=== PATIENT | male | born 1950 | race Caucasian/White ===

== ENCOUNTER → 2016-06-06 | Outpatient (CLI) | payer BC ==
[~2016-06-06] MED LIST: ACET-1256 PO; ASPI81TA28 PO; ATOR80TA PO; ATV/1 PO; CILO100T15 PO; FEXO3TAB PO; IMD/2 PO; LORA-741 PO; MELA1TAB5 PO; METO50TA16 PO; NITR0.4S UT; OMEP20TA PO; PSEU30TA20 PO; PSEU60TA80 PO; QUIN10TA25 PO; SIME1CAP11 PO; THEO400T9 PO; TRAM-10 PO; TRIA75TA53 PO; TRMCR515 TOP; melatonin PO; simethicone PO
[2016-06-06 09:55] LABS: CHOLESTEROL/HDL RATIO 1.2
== END | disposition home or self-care (01) ==
LOC: C.LAB1850 08:14
PROVIDERS: ATTEND Internal Medicine Cardiovascular Disease
DX: E78.5 Hyperlipidemia, unspecified (principal)

== ENCOUNTER → 2016-07-15 | Outpatient (CLI) | payer BC ==
[~2016-07-15] MED LIST changes: -LORA-741 PO; -PSEU60TA80 PO; -melatonin PO; -simethicone PO
--- NOTE | 2016-07-15 12:14 | DIAGNOSTIC IMAGING REPORT ---
CHEST 2 VIEWS ROUTINE CLINICAL HISTORY: LUNG CA lung carcinoma COMPARISON STUDY: 12/18/2015. CT chest dated 04/12/2016 FINDINGS: Chronic and postoperative changes right apical region. This includes unchanging destructive changes of the ribs previously described. Nodular density in the central right apical region is unaltered as well. Left lung is considered clear. Chronic interstitial prominence medial right base. IMPRESSION: Stable evaluation of chest compared to the prior study. No new or interval process. Unchanging findings right pulmonary apex Electronically signed by: Lewis Garcia M.D. 07/15/2016 12:13 PM Dictated Date/Time: 07/15/2016 12:11 PM
== END | disposition home or self-care (01) ==
LOC: C.RAD 11:44
PROVIDERS: ATTEND Nurse Practitioner Family
DX: C34.11 Malignant neoplasm of upper lobe, right bronchus or lung (principal); Z87.891 Personal history of nicotine dependence

== ENCOUNTER → 2016-07-18 | Day surgery (SDC) | payer BC ==
[2016-07-04 10:02] VITALS: BMI 25.0
[~2016-07-18] VITALS: Ht 175.3 cm; Wt 77.3 kg
[~2016-07-18] MED LIST changes: +FENTANYL CITRATE INJ 50 MCG/1 ML 2 ML VIAL ONE; +LIDOCAINE HCL 2% 2 ML VIAL (20MG/ML) ONE; +PROPOFOL IV EMULSION 10 MG/ML 20 ML VIAL IV ONE
[2016-07-18 14:34] VITALS: Ht 175.3 cm; Wt 77.3 kg
--- NOTE | 2016-07-18 14:57 | Endo History and Physical ---
History & Physical Date of Service: Jul 18, 2016. Chief Complaint: screening Referring Physician: Dr. Girard History of Present Illness 65 yo CM who presents for screening colonoscopy. Past Medical History Reflux, Cancer, Hypertension, OR Past Surgical History Hx Cardiac Surgery: Yes (HEART CATH, STENT X1) Hx Internal Defibrillator: No Hx Pacemaker: No Hx Abdominal Surgery: Yes (LT /RT INGUINAL HERNIA REPAIR) Hx of Implantable Prosthesis: No Hx Post-Op Nausea and Vomiting: No Hx Cancer Surgery: Yes (LUNG BIOPSY REMOVAL, RT UPPER LOBECTOMY, UPPER 4 RIBS REMOVED) Hx Thoracic Surgery: No Hx Orthopedic: Yes (LOWER BACK SURGERY WITH ARTIFICIAL VERTEBRAE AND HARDWARE) Hx Urinary Tract Surgery: Yes (RENAL STENT) Family History None Social History Smoking Status: Former Smoker Hx Substance Use: No Hx Alcohol Use: Yes (1 BEER/DAY) Allergies Coded Allergies: NSAIDs (Verified Adverse Reaction, Unknown, REDUCES KIDNEY FUNCTION, ) Current Medications Reported Home Medications Medications Dose Route/Sig Max Daily Dose Days Date Category Simethicone 180 Mg Cap 1 Cap PO DAILY PRN 07/04/16 Reported Kp Melatonin (Melatonin) 3 Mg Tab 1 Tab PO HS PRN 07/04/16 Reported Mucinex Allergy (Fexofenadine HCl) 180 Mg Tab 1 Tab PO DAILY PRN 07/04/16 Reported Ativan (Lorazepam) 1 Mg Tab 0.5-1 Tab PO HS PRN 07/04/16 Reported Triamcinolone Acetonide (Triamcinolone Acet) 45 Appln/15 Gm Cr 1 Appln TOP BID PRN 03/05/16 Reported Maxzide 75MG/50MG (Triamterene/HCTZ) Tab 0.5-1 Tab PO QAM 03/05/16 Reported Uniphyl Controlled Rel (Theophylline) 400 Mg Tabcr 400 Mg PO Q2D PRN 03/05/16 Reported Ultram (Tramadol HCl) 50 Mg Tab 1 Tab PO BID PRN 12/27/14 Reported Accupril (Quinapril HCl) 10 Mg Tab 0.5 Tab PO QAM 09/06/14 Reported Tylenol (Acetaminophen) 500 Mg Tab 1,000 Mg PO BID PRN 08/17/14 Reported Lopressor (Metoprolol Tartrate) 50 Mg Tab 50 Mg PO BID 08/17/14 Reported Lipitor (Atorvastatin Calcium) 80 Mg Tab 80 Mg PO HS 08/17/14 Reported Sudafed (Pseudoephedrine HCl) 30 Mg Tab 30 Mg PO Q4H PRN 08/26/13 Reported Imodium (Loperamide HCl) 2 Mg Cap 2 Mg PO DIRECTED PRN 08/26/13 Reported Aspirin Ec (Aspirin) 81 Mg Tab 81 Mg PO HS 04/21/13 Reported Omeprazole 20 Mg Tab 20 Mg PO QAM 11/17/12 Reported Nitrostat (Nitroglycerin) 0.4 Mg Sub 0.4 Mg UT UD PRN 11/17/12 Reported Pletal (Cilostazol) 100 Mg Tab 100 Mg PO BID 11/17/12 Reported Vital Signs Weight (Kilograms): 77.27 Height (Feet): 5 Height (Inches): 9 Date Time Temp Pulse Resp B/P Pulse Ox O2 Delivery O2 Flow Rate FiO2 07/18/16 14:43 36.9 63 20 161/85 99 Room Air Physical Exam General Appearance: WD/WN, no apparent distress Respiratory/Chest: Auscultation: breath sounds normal Cardiovascular: Heart Auscultation: RRR Abdomen: Bowel Sounds: normal Inspection & Palpation: soft, non-distended, no tenderness, guarding & rebound Assessment and Plan Assessment: 65 yo CM who presents for screening colonoscopy. Plan: Proceed with colonoscopy.
--- NOTE | 2016-07-18 15:48 | Anesthesiology Progress Note ---
Anesthesia Post Op Note Date & Time Jul 18, 2016 at 15:48 Vital Signs Pain Intensity: 0 Vital Signs Past 12 Hours Date Time Temp Pulse Resp B/P Pulse Ox O2 Delivery O2 Flow Rate FiO2 07/18/16 15:35 60 18 123/77 98 Room Air 07/18/16 15:20 60 16 129/66 99 Room Air 07/18/16 14:43 36.9 63 20 161/85 99 Room Air Notes Mental Status: alert / awake / arousable, participated in evaluation Pt Amnestic to Procedure: Yes Nausea / Vomiting: adequately controlled Pain: adequately controlled Airway Patency, RR, SpO2: stable & adequate BP & HR: stable & adequate Hydration State: stable & adequate Anesthetic Complications: no major complications apparent
--- NOTE | 2016-07-18 15:48 | GI REPORT ---
Procedure Date: 07/18/2016 3:02 PM Procedure: Colonoscopy Indications: Screening for colorectal malignant neoplasm Medicines: Monitored Anesthesia Care Complications: No immediate complications. Estimated Blood Loss: Estimated blood loss: none. Procedure: Pre-Anesthesia Assessment: - Prior to the procedure, a History and Physical was performed, and patient medications and allergies were reviewed. The patient's tolerance of previous anesthesia was also reviewed. The risks and benefits of the procedure and the sedation options and risks were discussed with the patient. All questions were answered, and informed consent was obtained. Prior Anticoagulants: The patient has taken aspirin, last dose was 1 day prior to procedure. ASA Grade Assessment: III - A patient with severe systemic disease. After reviewing the risks and benefits, the patient was deemed in satisfactory condition to undergo the procedure. After I obtained informed consent, the scope was passed under direct vision. Throughout the procedure, the patient's blood pressure, pulse, and oxygen saturations were monitored continuously. The scope was introduced through the anus and advanced to the terminal ileum. The colonoscopy was performed without difficulty. The patient tolerated the procedure well. The quality of the bowel preparation was good. The terminal ileum, ileocecal valve, appendiceal orifice, and rectum were photographed. Findings: A 8 mm polyp was found in the ascending colon. The polyp was sessile. The polyp was removed with a hot snare. Resection and retrieval were complete. Multiple small-mouthed diverticula were found in the sigmoid colon. Non-bleeding internal hemorrhoids were found during retroflexion. The hemorrhoids were small. Impression: - One 8 mm polyp in the ascending colon, removed with a hot snare. Resected and retrieved. - Diverticulosis in the sigmoid colon. - Non-bleeding internal hemorrhoids. Recommendation: - Resume previous diet. - Continue present medications. - Repeat colonoscopy for surveillance based on pathology results. - Return to primary care physician as previously scheduled. Shoaib Mendosa DO 07/18/2016 3:46:51 PM This report has been signed electronically. Note Initiated On: 07/18/2016 3:02 PM I attest to the content of the Intraoperative Record and orders documented therein, exceptions below
[2016-07-18 15:50] VITALS: BP 121/76; PULSE 58; O2SAT 98
--- NOTE | 2016-07-18 15:51 | Discharge Instructions ---
Endoscopy Patient Instructions Date / Procedure(s) Performed Jul 18, 2016. Colonoscopy Allergy Information Coded Allergies: NSAIDs (Verified Adverse Reaction, Unknown, REDUCES KIDNEY FUNCTION, ) Discharge Date / Findings Jul 18, 2016. Colon polyp Diverticulosis Internal hemorrhoids Medication Instructions Stopped Medication(s): pletal stopped 6 days ago. Restart Stopped Medication(s): OK to resume all medications today with exception of Pletal which should be restarted on 07/19/2016 Reported Home Medications Medications Dose Route/Sig Max Daily Dose Days Date Category Simethicone 180 Mg Cap 1 Cap PO DAILY PRN 07/04/16 Reported Kp Melatonin (Melatonin) 3 Mg Tab 1 Tab PO HS PRN 07/04/16 Reported Mucinex Allergy (Fexofenadine HCl) 180 Mg Tab 1 Tab PO DAILY PRN 07/04/16 Reported Ativan (Lorazepam) 1 Mg Tab 0.5-1 Tab PO HS PRN 07/04/16 Reported Triamcinolone Acetonide (Triamcinolone Acet) 45 Appln/15 Gm Cr 1 Appln TOP BID PRN 03/05/16 Reported Maxzide 75MG/50MG (Triamterene/HCTZ) Tab 0.5-1 Tab PO QAM 03/05/16 Reported Uniphyl Controlled Rel (Theophylline) 400 Mg Tabcr 400 Mg PO Q2D PRN 03/05/16 Reported Ultram (Tramadol HCl) 50 Mg Tab 1 Tab PO BID PRN 12/27/14 Reported Accupril (Quinapril HCl) 10 Mg Tab 0.5 Tab PO QAM 09/06/14 Reported Tylenol (Acetaminophen) 500 Mg Tab 1,000 Mg PO BID PRN 08/17/14 Reported Lopressor (Metoprolol Tartrate) 50 Mg Tab 50 Mg PO BID 08/17/14 Reported Lipitor (Atorvastatin Calcium) 80 Mg Tab 80 Mg PO HS 08/17/14 Reported Sudafed (Pseudoephedrine HCl) 30 Mg Tab 30 Mg PO Q4H PRN 08/26/13 Reported Imodium (Loperamide HCl) 2 Mg Cap 2 Mg PO DIRECTED PRN 08/26/13 Reported Aspirin Ec (Aspirin) 81 Mg Tab 81 Mg PO HS 04/21/13 Reported Omeprazole 20 Mg Tab 20 Mg PO QAM 11/17/12 Reported Nitrostat (Nitroglycerin) 0.4 Mg Sub 0.4 Mg UT UD PRN 11/17/12 Reported Pletal (Cilostazol) 100 Mg Tab 100 Mg PO BID 11/17/12 Reported Provider Instructions Activity Restrictions - No exercising or heavy lifting for 24 hours. - Do not drink alcohol the day of the procedure. - Do not drive a car or operate machinery until the day after the procedure. - Do not make any important decisions or sign important papers in 24 hours after the procedure. Following Day: - Return to full activity which may include returning to work/school. Diet Start your diet with liquids and light foods (jello, soup, juice, toast). Then eat your usual diet if not nauseated. Treatment For Common After Affects For mild abdominal pain, bloating, or excessive gas: - Rest - Eat lightly - Lie on right side Follow-Up Information Follow-up with Dr. Girard as scheduled Anesthesia Information What You Should Know You have had a procedure that required some medicine to reduce anxiety and discomfort. This treatment is called moderate sedation. After receiving the treatment, you may be sleepy, but you will be able to breathe on your own. The effects of the treatment may last for several hours. Follow these instructions along with Activity/Diet recommendations noted above: * Do NOT do anything where dizziness or clumsiness would be dangerous. * Rest quietly at home today, then you can be up and about tomorrow. * Have a responsible person stay with you the rest of today. * You may have had an I.V. today. If so, you may take the dressing off later today. Recommendations Call your doctor if: * Trouble breathing * Continuous vomiting for more than 24 hours * Temperature above 101 degrees * Severe abdominal pain or bloating * Pain not relieved by pain medicine ordered * There is increased drainage or redness from any incision * A large amount of rectal bleeding greater than 2-3 tablespoons. (If you had a polyp/s removed or have hemorrhoids, a small amount of blood - from the rectum is to be expected.) * You have any unanswered questions or concerns. IN THE EVENT OF A SERIOUS EMERGENCY, GO TO THE NEAREST EMERGENCY ROOM Your discharge instructions were prepared by provider Shoaib Mendosa. Patient Instructions Signature Page Adalberto Dunbar Patient (or Guardian) Signature/Date: I have read and understand the instructions given to me by my caregivers. Caregiver/RN/Doctor Signature/Date: The above-named patient and/or guardian has received patient instructions on this date. + Original Patient Signature Page (only) stays with chart. Please make copy for patient.
== END | disposition home or self-care (01) ==
LOC: C.GI 13:44
PROVIDERS: ATTEND Internal Medicine
DX: Z12.11 Encounter for screening for malignant neoplasm of colon (principal); D12.2 Benign neoplasm of ascending colon; K57.30 Diverticulosis of large intestine without perforation or abscess without bleeding; K64.8 Other hemorrhoids; Z95.5 Presence of coronary angioplasty implant and graft; Z87.891 Personal history of nicotine dependence; K21.9 Gastro-esophageal reflux disease without esophagitis; I10 Essential (primary) hypertension; I25.2 Old myocardial infarction; Z98.890 Other specified postprocedural states; Z79.82 Long term (current) use of aspirin; Z88.5 Allergy status to narcotic agent

== ENCOUNTER → 2016-08-13 | Outpatient (CLI) | payer BC ==
[~2016-08-13] MED LIST changes: -FENTANYL CITRATE INJ 50 MCG/1 ML 2 ML VIAL ONE; -LIDOCAINE HCL 2% 2 ML VIAL (20MG/ML) ONE; -PROPOFOL IV EMULSION 10 MG/ML 20 ML VIAL IV ONE; -THEO400T9 PO; +UNPSR400 PO
[2016-08-13 12:21] LABS: HEMATOCRIT 40.8 % (42-52); MEAN CELL VOLUME 98.6 fL (80-100); MEAN CORPUSCULAR HEMOGLOBIN 33.6 pg (25-34); MEAN CORPUSCULAR HGB CONC 34.1 g/dl (32-36); MEAN PLATELET VOLUME 9.8 fL (7.4-10.4); PLATELET COUNT 183 K/uL (130-400); RED BLOOD COUNT 4.14 M/uL (4.7-6.1); WHITE BLOOD COUNT 5.07 K/uL (4.8-10.8)
[2016-08-13 12:25] LABS: URINE APPEARANCE CLEAR (CLEAR); URINE BILIRUBIN NEG (NEG); URINE COLOR YELLOW; URINE NITRITE NEG (NEG); URINE PH 5.5 (4.5-7.5); URINE SPECIFIC GRAVITY 1.015 (1.000-1.030); UROBILINOGEN NEG (NEG)
[2016-08-13 12:30] LABS: PARTIAL THROMBOPLASTIN RATIO 1.1
[2016-08-13 12:36] LABS: MANUAL MICROSCOPIC REQUIRED? NO; REVIEW REQ? NO
[2016-08-13 12:41] LABS: BLOOD UREA NITROGEN 29 mg/dl (7-18); BUN/CREATININE RATIO 19.2 (10-20); CALCIUM 8.9 mg/dl (8.5-10.1); CARBON DIOXIDE 30 mmol/L (21-32); CHLORIDE 107 mmol/L (98-107); GLUCOSE 121 mg/dl (70-99); POTASSIUM 3.9 mmol/L (3.5-5.1); SODIUM 141 mmol/L (136-145)
== END | disposition home or self-care (01) ==
LOC: C.LAB1850 10:03
PROVIDERS: ATTEND Internal Medicine Nephrology
DX: N18.3 Chronic kidney disease, stage 3 (moderate) (principal)

== ENCOUNTER → 2016-12-19 | Outpatient (CLI) | payer BC ==
[~2016-12-19] MED LIST changes: +THEO400T9 PO; -UNPSR400 PO
[2016-12-19 10:12] LABS: ALT/SGPT 33 U/L (12-78); AST/SGOT 19 U/L (15-37); BLOOD UREA NITROGEN 24 mg/dl (7-18); BUN/CREATININE RATIO 17.1 (10-20); CALCIUM 9.1 mg/dl (8.5-10.1); CARBON DIOXIDE 28 mmol/L (21-32); CHLORIDE 106 mmol/L (98-107); GLUCOSE 109 mg/dl (70-99); POTASSIUM 3.9 mmol/L (3.5-5.1); SODIUM 139 mmol/L (136-145)
[2016-12-19 10:23] LABS: CHOLESTEROL 116 mg/dl (0-200); CHOLESTEROL/HDL RATIO 1.4; HDL CHOLESTEROL 81 mg/dl; LDL CHOLESTEROL CALCULATED 23 mg/dl; PHOSPHORUS 2.7 mg/dl (2.5-4.9); TRIGLYCERIDES 60 mg/dl (0-150); VERY LOW DENSITY LIPOPROT CALC 12 mg/dl
== END | disposition home or self-care (01) ==
LOC: C.LAB1850 08:57
PROVIDERS: ATTEND Internal Medicine Cardiovascular Disease
DX: N18.3 Chronic kidney disease, stage 3 (moderate) (principal); I25.10 Atherosclerotic heart disease of native coronary artery without angina pectoris; E78.5 Hyperlipidemia, unspecified

== ENCOUNTER → 2017-02-17 | Outpatient (CLI) | payer BC ==
[2017-02-17 16:13] LABS: URINE APPEARANCE CLEAR (CLEAR); URINE BILIRUBIN NEG (NEG); URINE COLOR YELLOW; URINE NITRITE NEG (NEG); URINE SPECIFIC GRAVITY 1.021 (1.000-1.030); UROBILINOGEN NEG (NEG)
[2017-02-17 16:16] LABS: MANUAL MICROSCOPIC REQUIRED? NO; REVIEW REQ? NO
[2017-02-17 16:47] LABS: BLOOD UREA NITROGEN 28 mg/dl (7-18); CALCIUM 8.9 mg/dl (8.5-10.1); CARBON DIOXIDE 24 mmol/L (21-32); CHLORIDE 106 mmol/L (98-107); GLUCOSE 85 mg/dl (70-99); POTASSIUM 3.7 mmol/L (3.5-5.1); SODIUM 140 mmol/L (136-145)
== END ==
LOC: C.LAB1850 14:50
PROVIDERS: ATTEND Internal Medicine Nephrology
DX: N18.3 Chronic kidney disease, stage 3 (moderate) (principal)

== ENCOUNTER → 2017-03-05 | Outpatient (CLI) | payer BC ==
[2015-02-28 13:04] VITALS: BP 114/69; PULSE 68
[~2017-03-05] MED LIST changes: -THEO400T9 PO; +UNPSR400 PO
[2017-03-05 13:15] VITALS: BP 103/65; PULSE 74; TEMP 37; O2SAT 96
--- NOTE | 2017-03-05 16:49 | Radiation Oncology Follow-Up ---
Radiation Oncology Follow-Up Date of Visit Mar 05, 2017. Reason For Visit Annual follow-up Radiation Completion Date 05/18/13 Diagnosis (1) Pancoast tumor Status: Resolved Onset Date: 03/23/2013 Histology Subtype: squamous cell carcinoma Stage: IV Permanent Comment: Onset of right arm numbness and right arm pain Finding of a right upper lobe mass with evidence of right rib involvement consistent with a Pancoast tumor Status post fine-needle aspiration of the right lung apex revealing squamous cell carcinoma 03/23/2013 Status post completion of combined radiation and chemotherapy radiation completed 05/18/2013 received 6000 cGy status post mediastinoscopy, right posterior lateral thoracotomy, right intracostal flap mobilization with coverage of the bronchial stump and mediastinal lymphadenectomy 07/08/2013 Stage [id number] Last Edited By: Ailyn Patel on Feb 28, 2015 17:02 Interim History He's been doing well over this past year. He denies any problems with shortness of breath. He does have tightness in his shoulder. He is pleased that he has been able to increase his range of motion. He has occasional pain in the shoulder and on rare occasions has to take a tramadol. For the most part the discomfort can be avoided and improved with stretching exercises. He did have some increased discomfort and had physical therapy and the pain improved. He is now followed on an annual basis at [facility] by Dr. Angulo. His most recent CT of the chest was 11/19/2016. Postoperative changes were noted there was no evidence of disease recurrence. Allergies Coded Allergies: NSAIDs (Verified Adverse Reaction, Unknown, REDUCES KIDNEY FUNCTION, ) Home Medications Scheduled Aspirin (Aspirin Ec), 81 MG PO HS Atorvastatin Calcium (Lipitor), 80 MG PO HS Cilostazol (Pletal), 100 MG PO BID Metoprolol Tartrate (Lopressor) (Lopressor), 50 MG PO BID Omeprazole (Omeprazole), 20 MG PO QAM Quinapril Hcl (Accupril), 0.5 TAB PO QAM Triamterene/Hctz (Maxzide 75MG/50MG), 0.5-1 TAB PO QAM Scheduled PRN Acetaminophen (Tylenol), 1,000 MG PO BID PRN for Pain Fexofenadine HCl (Mucinex Allergy), 1 TAB PO DAILY PRN for Constipation Loperamide Hcl (Imodium), 2 MG PO DIRECTED PRN for Diarrhea Lorazepam (Ativan), 0.5-1 TAB PO HS PRN for Sleep Melatonin (Kp Melatonin), 1 TAB PO HS PRN for Sleep Nitroglycerin (Nitrostat), 0.4 MG UT UD PRN for Chest Pain Pseudoephedrine (Sudafed), 30 MG PO Q4H PRN for Nasal Congestion Simethicone (Simethicone), 1 CAP PO DAILY PRN for GI Upset Theophylline Cont Rel (Uniphyl Controlled Rel), 400 MG PO Q2D PRN for Shortness of Breath Tramadol (Ultram), 1 TAB PO BID PRN for Pain Triamcinolone Acet (Triamcinolone Acetonide), 1 APPLN TOP BID PRN for Affected Skin Folds Review of Systems Gastrointestinal: Symptoms: WNL GI Comments: Goes between diarrhea and constipation (normal for patient) Oral: Symptoms: No Problems Respiratory: Symptoms: WNL Urinary: Symptoms: WNL Skin: Symptoms: No Problems Physical Exam Vital Signs Date Time Temp Pulse Resp B/P (MAP) Pulse Ox O2 Delivery O2 Flow Rate FiO2 03/05/17 13:15 37.0 74 16 103/65 96 Pain: Pain Duration: chest - constant, shoulder - comes and goes Pain Location: Shoulder and through chest - surg area Patient Pain Scale: 0 - 10 Initial Pain Intensity: 3.0 Pain Description: Dull, Aching Additional Comments: chest - dull, numbing ache, shoulder - sharp stabbing Fatigue: None General Appearance: no apparent distress Eyes: normal inspection, EOMI ENT: normal ENT inspection, hearing grossly normal Neck: no adenopathy, + pertinent finding (fibrous changes of the right supraclavicular area) Respiratory/Chest: lungs clear (decreased breath sounds at the right apex), no respiratory distress, no accessory muscle use Cardiovascular: regular rate, rhythm, no gallop, no murmur Extremities: no pedal edema Neurologic/Psychiatric: no motor/sensory deficits, alert, normal mood/affect Skin: warm/dry Laboratory Studies Test 12/19/16 09:02 02/17/17 14:52 Sodium Level 139 mmol/L (136-145) 140 mmol/L (136-145) Potassium Level 3.9 mmol/L (3.5-5.1) 3.7 mmol/L (3.5-5.1) Chloride Level 106 mmol/L (98-107) 106 mmol/L (98-107) Carbon Dioxide Level 28 mmol/L (21-32) 24 mmol/L (21-32) Anion Gap 5.0 mmol/L (3-11) 10.0 mmol/L (3-11) Blood Urea Nitrogen 24 mg/dl (7-18) 28 mg/dl (7-18) Creatinine 1.40 mg/dl (0.60-1.40) 1.50 mg/dl (0.60-1.40) Estimated GFR () 60.3 55.0 Estimated GFR (Non- 52.0 47.5 BUN/Creatinine Ratio 17.1 (10-20) 19.0 (10-20) Random Glucose 109 mg/dl (70-99) 85 mg/dl (70-99) Calcium Level 9.1 mg/dl (8.5-10.1) 8.9 mg/dl (8.5-10.1) Phosphorus Level 2.7 mg/dl (2.5-4.9) 3.0 mg/dl (2.5-4.9) Aspartate Amino Transferase (AST) 19 U/L (15-37) Alanine Aminotransferase (ALT) 33 U/L (12-78) Albumin 3.7 gm/dl (3.4-5.0) 3.9 gm/dl (3.4-5.0) Triglycerides Level 60 mg/dl (0-150) Cholesterol Level 116 mg/dl (0-200) HDL Cholesterol 81 mg/dl LDL Cholesterol, Calculated 23 mg/dl VLDL Cholesterol, Calculated 12 mg/dl Cholesterol/HDL Ratio 1.4 Thyroid Stimulating Hormone (TSH) 2.260 uIu/ml (0.300-4.500) Urine Color YELLOW Urine Appearance CLEAR (CLEAR) Urine pH 5.0 (4.5-7.5) Urine Specific [place] 1.021 (1.000-1.030) Urine Protein NEG (NEG) Urine Glucose (UA) NEG (NEG) Urine Ketones NEG (NEG) Urine Occult Blood NEG (NEG) Urine Nitrite NEG (NEG) Urine Bilirubin NEG (NEG) Urine Urobilinogen NEG (NEG) Urine Leukocyte Esterase NEG (NEG) Parathyroid Hormone (Intact) 148.5 pg/mL (11.1-79.5) Assessment & Plan Plan: Continue follow-up at [facility] with Dr. Angulo. He'll be having recheck CAT scan in November. Continue follow-up with medical oncology he'll be seen in May. He'll continue with the stretching exercises which help with the shoulder discomfort. We asked him to return to our office in 1 year. He may call if he has any questions or concerns in the interim. Total Time In Follow-Up I spent 20 minutes speaking to the patient and performing examination. I spent 15 minutes reviewing information and completing this note. Copy To Rad Medina D.O.; Jada Girard, DO; Kena Angulo M.D. Problem Qualifiers (1) Pancoast tumor: Laterality: right Qualified Codes: C34.11 - Malignant neoplasm of upper lobe , right bronchus or lung
== END | disposition home or self-care (01) ==
LOC: C.ONC 13:08
PROVIDERS: ATTEND Physician Assistant Medical
DX: Z08 Encounter for follow-up examination after completed treatment for malignant neoplasm (principal); Z92.3 Personal history of irradiation; Z85.89 Personal history of malignant neoplasm of other organs and systems

== ENCOUNTER → 2017-03-18 | Outpatient (CLI) | payer BC ==
[~2017-03-18] MED LIST changes: +GADAVIST IV PRN
--- NOTE | 2017-03-18 10:56 | DIAGNOSTIC IMAGING REPORT ---
MRI OF THE BRAIN WITHOUT AND WITH IV CONTRAST CLINICAL HISTORY: POOR BALANCE,PANCOAST TUMOR LUNG CARCINOMA COMPARISON STUDY: 03/11/2016 TECHNIQUE: MRI of the brain was performed from the vertex to the skull base utilizing various T1 and T2 weighted sequences. Following the IV administration of 7.6 mL of Gadavist contrast, additional enhanced images were obtained. FINDINGS: Sagittal T1, axial diffusion, proton density and T2 weighted axial, coronal FLAIR, and pre and post axial T1-weighted images were acquired. These were supplemented with post gadolinium coronal T1 weighted images. No intra or extra-axial mass lesions are visualized. Axial diffusion-weighted images reveal no evidence of acute or subacute infarction. There is no evidence of ventricular dilatation. Proton density T2-weighted and FLAIR images reveal a few scattered foci of increased T2 signal within the white matter, likely on a small vessel basis. There are no abnormal flow voids. There is no evidence of pathologic enhancement. IMPRESSION: No acute intracranial findings. No evidence of acute or subacute infarction. No evidence of intracranial metastasis. Electronically signed by: Gio Morton M.D. 03/18/2017 10:54 AM Dictated Date/Time: 03/18/2017 10:51 AM
== END | disposition home or self-care (01) ==
LOC: C.MRI 09:14
PROVIDERS: ATTEND Physician Assistant Medical
DX: C34.10 Malignant neoplasm of upper lobe, unspecified bronchus or lung (principal); R26.9 Unspecified abnormalities of gait and mobility

== ENCOUNTER → 2017-03-26 | Outpatient (CLI) | payer BC ==
[~2017-03-26] MED LIST changes: -GADAVIST IV PRN
--- NOTE | 2017-03-26 09:24 | DIAGNOSTIC IMAGING REPORT ---
ULTRASOUND L VENOUS DOPP LOWER EXT UNILAT CLINICAL HISTORY: LEFT LEG NUMBNESS COMPARISON STUDY: No previous studies for comparison. FINDINGS: Real-time and color flow Doppler imaging were performed. Flow was seen within the femoral, popliteal and calf veins with no intraluminal thrombus demonstrated. The saphenous vein is patent. IMPRESSION: No evidence of left lower extremity DVT. Electronically signed by: Gio Morton M.D. 03/26/2017 9:22 AM Dictated Date/Time: 03/26/2017 9:22 AM
--- NOTE | 2017-03-26 09:26 | DIAGNOSTIC IMAGING REPORT ---
L ART DOP DUPLEX LWR EXT UNI CLINICAL HISTORY: LEFT LEG NUMBNESS pain. Neuropathy. TECHNIQUE: Arterial Doppler COMPARISON STUDY: None FINDINGS: bi or triphasic waveforms throughout. Dorsalis pedis ankle-brachial brachial index is 1.06. Posterior tibial artery is 0.91. IMPRESSION: Mild plaque formation throughout the left leg. No significant stenotic process. The above report was generated using voice recognition software. It may contain grammatical, syntax or spelling errors. Electronically signed by: Lewis Garcia M.D. 03/26/2017 9:24 AM Dictated Date/Time: 03/26/2017 9:22 AM
== END | disposition home or self-care (01) ==
LOC: C.ULTR 08:09
PROVIDERS: ATTEND Nurse Practitioner Family
DX: R20.0 Anesthesia of skin (principal)

== ENCOUNTER → 2017-04-11 | Outpatient (CLI) | payer BC ==
[~2017-04-11] MED LIST changes: -QUIN10TA25 PO; +QUIN1TAB61 PO
== END | disposition home or self-care (01) ==
LOC: C.LAB1850 13:51
PROVIDERS: ATTEND Nurse Practitioner Family
DX: E83.42 Hypomagnesemia (principal)

== ENCOUNTER → 2017-07-08 | Outpatient (CLI) | payer BC | END | disposition home or self-care (01) | LOC: C.LAB1850 08:52 | PROVIDERS: ATTEND Internal Medicine Cardiovascular Disease | DX: E83.42 Hypomagnesemia (principal); I25.10 Atherosclerotic heart disease of native coronary artery without angina pectoris; E78.5 Hyperlipidemia, unspecified ==

== ENCOUNTER → 2017-08-18 | Outpatient (CLI) | payer BC ==
[2017-08-18 13:52] LABS: ALBUMIN 3.7 gm/dl (3.4-5.0); BLOOD UREA NITROGEN 28 mg/dl (7-18); CALCIUM 8.6 mg/dl (8.5-10.1); CARBON DIOXIDE 24 mmol/L (21-32); CREATININE 1.39 mg/dl (0.60-1.40); GLUCOSE 122 mg/dl (70-99); POTASSIUM 3.9 mmol/L (3.5-5.1); SODIUM 138 mmol/L (136-145)
[2017-08-18 13:53] LABS: PHOSPHORUS 2.5 mg/dl (2.5-4.9)
== END | disposition home or self-care (01) ==
LOC: C.LAB1850 11:33
PROVIDERS: ATTEND Internal Medicine Nephrology
DX: N18.3 Chronic kidney disease, stage 3 (moderate) (principal); E55.9 Vitamin D deficiency, unspecified

== ENCOUNTER → 2017-12-15 | Outpatient (CLI) | payer BC ==
--- NOTE | 2017-12-15 12:14 | DIAGNOSTIC IMAGING REPORT ---
RIGHT FOOT 3 VIEWS CLINICAL HISTORY: Right foot pain. FINDINGS: 3 views of the right foot are compared to study dated 01/08/2012. The skeletal structures are well mineralized for age. No fracture is seen. Mild osteoarthritic change is seen at the first metatarsophalangeal joint. The joint spaces of the foot are otherwise maintained. A tiny medial marginal erosion is suggested in the head of the first metatarsal. There is mild soft tissue edema and subtle hazy soft tissue calcifications identified around the first metatarsophalangeal joint. IMPRESSION: 1. There is no radiographic evidence of fracture. 2. Changes at the first metatarsophalangeal joint as above. The appearance suggests gout. Clinical correlation will be required. Electronically signed by: Stephan Coles M.D. 12/15/2017 12:12 PM Dictated Date/Time: 12/15/2017 12:10 PM
[2017-12-15 13:16] LABS: BASO % 0.3 %; BASO ABS # 0.03 K/uL (0-0.2); EOS % 0.6 %; EOS ABS # 0.06 K/uL (0-0.5); HEMATOCRIT 39.3 % (42-52); HEMOGLOBIN 13.5 g/dL (14.0-18.0); IG# 0.05 K/uL (0.00-0.02); LYMPH ABS # 0.49 K/uL (1.2-3.4); MEAN CELL VOLUME 100.3 fL (80-100); MEAN CORPUSCULAR HEMOGLOBIN 34.4 pg (25-34); MEAN CORPUSCULAR HGB CONC 34.4 g/dl (32-36); MONO % 10.7 %; MONO ABS # 1.05 K/uL (0.11-0.59); NEUT % 82.9 %; NEUT ABS # 8.09 K/uL (1.4-6.5); PLATELET COUNT 196 K/uL (130-400); RED CELL DISTRIBUTION WIDTH CV 12.5 % (11.5-14.5); RED CELL DISTRIBUTION WIDTH SD 45.5 fL (36.4-46.3); WHITE BLOOD COUNT 9.77 K/uL (4.8-10.8)
[2017-12-15 13:42] LABS: URIC ACID 7.5 mg/dl (2.6-7.2)
[2017-12-16 13:53] LABS: ANA SCREEN TC 249X NEGATIVE (NEGATIVE)
== END | disposition home or self-care (01) ==
LOC: C.RAD1850 11:17
PROVIDERS: ATTEND Family Medicine
DX: M79.673 Pain in unspecified foot (principal); I25.10 Atherosclerotic heart disease of native coronary artery without angina pectoris

== ENCOUNTER 2024-03-30 11:46 | Inpatient (IN) ==
[2024-03-30] MEDS ORDERED: CEFEPIME 2,000 MG in SYRINGE 7.5 ML IV STA (12:15)
--- NOTE | 2024-03-30 12:23 | Emergency Department Note ---
Impression & Plan Weakness, Fall, Chest wall contusion, Abdominal wall contusion, Hypomagnesemia, Cellulitis ED Provider Note NAME: KAM RODRÍGUEZ AGE: 73 SEX: M : 1950 ARRIVES VIA: Ambulance INFORMANT: [Patient][ems] ED PROVIDER(S): [Stephan Friedman MD] CHIEF COMPLAINT: Shortness of breath, falling HISTORY OF PRESENT ILLNESS: The patient is a 73-year-old male who is currently living alone. His a month ago. In the last few days, the patient has fallen multiple times. He has contusions to his right abdomen and right chest. He has extremity contusions. The patient states that he feels weak and dizzy and this causes the falling. No loss of consciousness. No chest pain. No fever. He has noticed swelling though of both lower extremities, more so the left. The patient states he is short of breath, he has not noticed cough or cold symptoms. PMHx/PSHx/Social Hx: See Below PHYSICAL EXAM: GENERAL: Patient is in no acute distress. HEENT: No acute trauma, normocephalic atraumatic, mucous membranes moist, no nasal congestion. NECK: No stridor, no adenopathy, nontender cervical spine, trachea is midline. LUNGS: Clear to auscultation bilaterally, no wheeze, no rhonchi, breath sounds equal. Chest: Patient has a contusion to the right lower chest wall, he does not seem tender here. No crepitus. HEART: Without murmurs gallops or rubs, regular rate and rhythm. ABDOMEN: Soft, nontender, no peritonitis. There is a contusion to the right upper quadrant which does not seem tender. EXTREMITIES: No cyanosis, full range of motion of all the joints without pain or difficulty. Multiple contusions of his upper extremities of different ages. He does have bilateral pedal edema with foot erythema, especially on the left. There is increased warmth present to both lower extremities. NEUROLOGIC: Oriented x 3, no acute motor or sensory deficits, no focal weakness. SKIN: No jaundice, no diaphoresis. Back: Nontender thoracic or lumbar spine. DIFFERENTIAL DIAGNOSIS: Anemia, sepsis or bacteremia, cellulitis, chest wall injury, intra-abdominal injury, electrolyte imbalance, UTI, cellulitis, among others. EMERGENCY DEPARTMENT PROCEDURES: MEDICAL DECISION MAKING: There is no leukocytosis. The patient is anemic with a hemoglobin of 12.4. Platelet count was low at 116. No coagulopathy. Potassium was low, magnesium was quite low. There was no renal failure. There were some subtle liver enzyme elevations. Patient appeared to be in a euthyroid state. ECG showed a normal sinus rhythm, no ischemia. Cardiac enzyme testing x 1 was not consistent with acute cardiac injury. Urinalysis showed some dehydration, no infection. Respiratory bio fire was negative. Lactic acid level was not elevated making severe sepsis less likely. Chest x-ray showed some chronic change to the right lung, no pneumonia. Brain CT showed no acute bleed or mass effect. C-spine CT showed no acute fracture. Chest and abdominal CTs did not show any acute traumatic process. On exam, the patient had contusions to his extremities and his right lower chest and right upper abdomen. He appeared to have a bilateral lower extremity cellulitis worse on the left. The patient received IV saline, 500 cc. He was given oral potassium and IV magnesium. He received IV cefepime as antibiotic coverage. The patient is falling. He is quite contused from his falls, luckily, no major thoracic or abdominal injury found by workup. The patient is in need of a hospital stay. He is weak, falling, he has cellulitis, he has a very low magnesium, he is not safe for discharge home. I did speak with the patient and family, the on-call hospitalist was consulted. Prior/Outside records/notes reviewed: Today's EMS notes describing his presentation and transport to this hospital. ECG per my interpretation: Indication was falling and weakness. The ECG shows a normal sinus rhythm with a rate of 79. There is some nonspecific ST change. There is a right bundle branch block. There is no acute ST ovation, no PVCs. The QTc is 497. Continuous Cardiac Monitoring per my interpretation: An order was placed for continuous cardiac monitoring. The monitor shows a rate of 81 with normal sinus rhythm. Imaging/x-ray results per my interpretation: Chest x-ray shows some chronic change to the right lung, the left lung was clear. No pneumonia. No pneumothorax. Chronic Medical/Social conditions affecting care: Advanced age. Care/Management discussed with: Case management, the on-call hospitalist. Level of care consideration(s): After review of the information above and other included data: --I believe the patient requires escalation of care to admission Critical Care Note: I have personally spent 51 minutes of critical care time in the direct management of this patient. This includes bedside care, interpretation of diagnostic studies, and testing, discussion with consultants, patient, and family members, and other required patient management activities. This 51 minutes is in excess of all separately billable procedures. DISPOSITION: Admission Past Med/Surg History Problem List Cellulitis (Acute) Hypomagnesemia (Acute) Abdominal wall contusion (Acute) Chest wall contusion (Acute) Fall (Acute) Weakness (Acute) Swelling of left lower extremity Stasis dermatitis Weakness Adjacent segment disease of lumbar spine with history of fusion procedure Foraminal stenosis of lumbosacral region History of fusion of lumbar spine Foot drop, right Spondylolisthesis Degenerative lumbar spinal stenosis Degenerative disc disease Lesion of left sleetmute kidney Microscopic hematuria Abdominal aortic ectasia (Chronic) 2.9 cm 12/18/22 Hypertension (Chronic) Anxiety (Chronic) History of colon polyps Rupture of right distal biceps tendon Tubular adenoma of colon (Chronic) Peripheral vascular disease (Chronic) History of gout (Chronic) Former smoker (Chronic) Diverticulosis (Chronic) Stage 3b chronic kidney disease (Chronic) follows with Dr. Diaz Hypercholesterolemia (Chronic) Dropfoot (Chronic) left Impaired fasting blood sugar (Chronic) Coronary artery disease (Chronic) LAD stent 2002 > follows with Dr. 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 Status post completion of combined radiation and chemotherapy radiation completed 05/18/2013 received 6000 cGy status post mediastinoscopy, right posterior lateral thoracotomy, right intracostal flap mobilization with coverage of the bronchial stump and mediastinal lymphadenectomy 07/08/2013 Stage [id number] GERD (gastroesophageal reflux disease) (Chronic) Chronic obstructive pulmonary disease (Chronic) Carotid artery plaque (Chronic) Medical History Biceps tendon tear rt arm (limb restriction) Myocardial Infarction 2002 Hx of cancer of lung chemo/radiation/surgery 2013 Vitamin D deficiency Vitamin B 12 deficiency Surgical History History of cataract surgery B/L, 10/30/22 and 11/13/22 History of tooth extraction History of heart artery stent 2002>[address] [facility] History of removal of Port-a-Cath A-port for chemo in past History of lobectomy of lung rt upper lung History of bronchoscopy History of esophagogastroduodenoscopy (EGD) History of colonoscopy History of surgery on arm left bicep tendon repair Hx of left inguinal hernia repair Hx of hand surgery right index finger from accident History of stent insertion of renal artery left H/O right inguinal hernia repair H/O total knee replacement rt/left H/O lumbosacral spine surgery Family History Father Myocardial infarction Mother Myocardial infarction Brother Myocardial infarction Sister Myocardial infarction Other Lung cancer No family history of adverse response to anesthesia Denies family history of Sudden Ovarian cancer Prostate cancer Dyslipidemia Breast cancer Colorectal cancer Social History Smoking Status: Former smoker Tobacco Type: Cigarettes and Cigars Age Started Using Tobacco: 15; Age Quit Using Tobacco: 52; packs per day: 1; Cigarettes Per Day: quit 2002; Second Hand Exposure: Yes (as a child); Do You Dip or Chew Tobacco: No; Hx Alcohol Use: Yes Alcohol type: beer Alcohol Intake Frequency: 4 or More x per/Week Alcohol Intake Frequency Comment: 1 drink per day Hx Substance Use: No Preferred Language: Indonesian Communication Ability: Effective Visual Impairment: Limited Hearing Ability: Normal Bonding Supervisor Required: No Beliefs That Will Affect Care: None marital status: Current Living Situation: Alone current occupational status: retired 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 How many Children do You have: 0 Other Information That Helps Us Care for You: No Feels Safe at Home: Yes Safety Concerns: Feels Safe At This Time Childhood Exposure to Second-Hand Smoke: Yes Diet: regular caffeine: Yes during the past year weight has: remained stable Dental Care, Regularly: No Physical Activity Frequency: 3-4 Times per Week Seatbelt Use: always Sunscreen Use: Yes Assistive Devices: Walker Allergies Allergies Allergy/AdvReac Type Severity Reaction Status Date / Time NSAIDS (Non-Steroidal AdvReac Unknown REDUCES Verified 10/01/23 08:56 Anti-Inflamma KIDNEY FUNCTION Home Meds Home Medications Medication Instructions Recorded Confirmed aspirin 81 mg tablet,delayed 81 mg PO 2XWK 10/22/21 03/30/24 release magnesium 250 mg tablet 250 mg PO QAM 12/12/22 03/30/24 multivitamin 1 tab PO QAM 07/24/23 03/30/24 pseudoephedrine HCl 30 mg tablet 30 mg PO Q6H PRN Congestion 07/24/23 03/30/24 (Sudafed) simethicone 125 mg capsule (Gas 125 mg PO DAILY PRN BLOATING 07/24/23 03/30/24 Relief (simethicone)) allopurinol 100 mg tablet 100 mg PO QAM 03/30/24 03/30/24 atorvastatin 80 mg tablet 80 mg PO QAM 03/30/24 03/30/24 lisinopril 5 mg tablet 5 mg PO QAM 03/30/24 03/30/24 metoprolol tartrate 50 mg tablet 12.5 mg PO BID 03/30/24 03/30/24 omeprazole 20 mg capsule,delayed 20 mg PO QAM 03/30/24 03/30/24 release sertraline 25 mg tablet 25 mg PO QAM 03/30/24 03/30/24 Previous Rx's Medication Instructions Recorded melatonin 3 mg tablet 3 mg PO HS PRN sleep #14 tabs 11/03/18 nitroglycerin 0.4 mg sublingual 0.4 mg sublingual Q5M PRN chest 01/22/23 tablet (Nitrostat) pain #25 tabs theophylline 300 mg 150 mg (1/2 x 300 mg) PO DAILY PRN 02/25/23 tablet,extended release,12 hr Shortness Of Breath #45 tabs triamterene 75 See Rx Instructions PO DAILY edema 12/17/23 mg-hydrochlorothiazide 50 mg tablet #90 tabs lorazepam 0.5 mg tablet 0.5 mg PO Q8H PRN anxiety #30 tabs 03/04/24 Results & Data (ED) Vital Signs Vital Signs - 24 hr 03/30/24 11:52 03/30/24 11:52 03/30/24 11:53 Temperature 37 C Temperature Source Oral Pulse Rate 80 Pulse Rate [Apical] Pulse Rate from SpO2 Sensor Pulse Rhythm [Apical] Pulse Strength [Apical] Respiratory Rate 22 Respiratory Effort / Characteristics Non-Labored Spontaneous Respiratory Depth Normal Respiratory Pattern Regular Blood Pressure 134/89 134/89 Blood Pressure [Right Arm] Blood Pressure Mean 104 98 Blood Pressure Mean [Right Arm] Blood Pressure Position Lying Blood Pressure Position [Right Arm] Pulse Oximetry 98 98 Oxygen Delivery Method Room Air Room Air Sepsis Recent Fever Within 48 Hours No Sepsis New/Unexplained Change in Mental Status N/A Sepsis Action Taken by Nursing No Action Required 03/30/24 11:57 03/30/24 12:00 03/30/24 12:03 Temperature Temperature Source Pulse Rate 77 73 Pulse Rate [Apical] Pulse Rate from SpO2 Sensor 77 73 Pulse Rhythm [Apical] Pulse Strength [Apical] Respiratory Rate 20 20 Respiratory Effort / Characteristics Respiratory Depth Respiratory Pattern Blood Pressure 140/88 Blood Pressure [Right Arm] Blood Pressure Mean 112 Blood Pressure Mean [Right Arm] Blood Pressure Position Blood Pressure Position [Right Arm] Pulse Oximetry 95 95 Oxygen Delivery Method Sepsis Recent Fever Within 48 Hours Sepsis New/Unexplained Change in Mental Status Sepsis Action Taken by Nursing 03/30/24 12:08 03/30/24 12:20 03/30/24 12:45 Temperature Temperature Source Pulse Rate 79 73 Pulse Rate [Apical] Pulse Rate from SpO2 Sensor Pulse Rhythm [Apical] Pulse Strength [Apical] Respiratory Rate 19 Respiratory Effort / Characteristics Respiratory Depth Respiratory Pattern Blood Pressure Blood Pressure [Right Arm] Blood Pressure Mean Blood Pressure Mean [Right Arm] Blood Pressure Position Blood Pressure Position [Right Arm] Pulse Oximetry 97 Oxygen Delivery Method Room Air Sepsis Recent Fever Within 48 Hours Sepsis New/Unexplained Change in Mental Status Sepsis Action Taken by Nursing 03/30/24 13:00 03/30/24 13:00 03/30/24 13:51 Temperature Temperature Source Pulse Rate 76 83 Pulse Rate [Apical] Pulse Rate from SpO2 Sensor 83 Pulse Rhythm [Apical] Pulse Strength [Apical] Respiratory Rate 22 23 Respiratory Effort / Characteristics Respiratory Depth Respiratory Pattern Blood Pressure 157/79 H Blood Pressure [Right Arm] Blood Pressure Mean 119 Blood Pressure Mean [Right Arm] Blood Pressure Position Blood Pressure Position [Right Arm] Pulse Oximetry 95 Oxygen Delivery Method Sepsis Recent Fever Within 48 Hours Sepsis New/Unexplained Change in Mental Status Sepsis Action Taken by Nursing 03/30/24 14:00 03/30/24 14:03 03/30/24 15:25 Temperature Temperature Source Pulse Rate 67 Pulse Rate [Apical] 84 Pulse Rate from SpO2 Sensor 63 Pulse Rhythm [Apical] Regular Pulse Strength [Apical] Normal Respiratory Rate 19 22 Respiratory Effort / Characteristics Non-Labored Spontaneous Respiratory Depth Normal Respiratory Pattern Regular Blood Pressure 140/85 Blood Pressure [Right Arm] 153/90 H Blood Pressure Mean 113 Blood Pressure Mean [Right Arm] 111 Blood Pressure Position Blood Pressure Position [Right Arm] Sitting Pulse Oximetry 94 97 Oxygen Delivery Method Room Air Sepsis Recent Fever Within 48 Hours Sepsis New/Unexplained Change in Mental Status Sepsis Action Taken by Care Home Medications Current Medication List: was personally reviewed by me Laboratory Data Attestation: I reviewed the patient's lab results. 03/30/24 11:56 03/30/24 14:08 Lab Results 03/30/24 03/30/24 03/30/24 Range/Units 11:56 12:14 12:52 WBC 6.10 (4.8-10.8) K/ul RBC 3.60 L (4.70-6.10) M/uL Hgb 12.4 L (14.0-18.0) g/dl Hct 35.9 L (42.0-52.0) % MCV 99.7 (80.0-100.0) fL MCH 34.4 H (25.0-34.0) pg MCHC 34.5 (32.0-36.0) g/dL RDW Std Deviation 46.3 (36.4-46.3) fL RDW Coeff of Daniel 12.8 (11.5-14.5) % Plt Count 116 L (130-400) K/uL MPV 9.7 (9.4-12.4) fL Immature Gran % (Auto) 0.3 % Neut % (Auto) 85.8 % Lymph % (Auto) 5.2 % [place] % (Auto) 8.2 % Eos % (Auto) 0.2 % Baso % (Auto) 0.3 % Neut # (Auto) 5.23 (1.40-6.50) K/uL Lymph # (Auto) 0.32 L (1.20-3.40) K/uL [place] # (Auto) 0.50 (0.11-0.59) K/uL Eos # (Auto) 0.01 (0.00-0.50) K/uL Baso # (Auto) 0.02 (0.00-0.20) K/uL Immature Gran # (Auto) 0.02 (0.01-0.20) K/uL PT 11.1 (9.0-12.0) Seconds INR 1.0 (0.9-1.1) APTT 27 (21-31) Seconds PTT Ratio 1.0 Sodium TNP Potassium TNP Chloride 104 (98-107) mmol/L Carbon Dioxide 26 (21-32) mmol/L Anion Gap TNP BUN 28 H (6-23) mg/dl Creatinine 0.94 (0.6-1.4) mg/dl Est Cr Clr Drug Dosing 64.5 ml/min eGFR 85.07 BUN/Creatinine Ratio 29.8 H (10-20) Glucose 90 (70-99(Fasting)) mg/dl Lactate 1.1 (0.4-2.0) mmol/L Calcium 8.6 (8.6-10.3) mg/dl Magnesium TNP Total Bilirubin 1.6 H (0.2-1.0) mg/dl AST TNP ALT 54 H (7-52) U/L Alkaline Phosphatase 100 (34-104) U/L Troponin I High Sens 14.7 (0-20) pg/ml Total Protein 6.4 (6.0-8.3) gm/dl Albumin 4.0 (3.4-5.0) gm/dl Globulin 2.4 L (2.5-4.0) gm/dl Albumin/Globulin Ratio 1.7 (0.9-2) TSH 3.468 (0.300-4.500) uIu/ml Urine Color Yellow Urine Appearance Clear (Clear) Urine pH 5.5 (4.5-7.5) Ur Specific [place] 1.019 (1.000-1.030) Urine Protein 1+ H (Negative) Urine Glucose (UA) Negative (Negative) Urine Ketones 1+ H (Negative) Urine Blood 1+ H (Negative) Urine Nitrite Negative (Negative) Urine Bilirubin Negative (Negative) Urine Urobilinogen Negative (Negative) Ur Leukocyte Esterase Negative (Negative) Urine WBC (Auto) 0-5 (0-5) /hpf Urine RBC (Auto) 0-2 (0-2) /hpf U Hyaline Cast (Auto) 0-2 (0-2) /lpf U Epithel Cells (Auto) 0-2 (0-2) /hpf Urine Bacteria (Auto) None Seen (None Seen) Adenovirus (PCR) Not Detected (NotDetected) B. pertussis DNA (PCR) Not Detected (NotDetected) B.parapertussis DNA PCR Not Detected (NotDetected) C. pneumoniae DNA (PCR) Not Detected (NotDetected) Coronavirus OC43 (PCR) Not Detected (NotDetected) Coronavirus HKU1 (PCR) Not Detected (NotDetected) Coronavirus 229E (PCR) Not Detected (NotDetected) SARS-CoV-2 (PCR) Not Detected (NotDetected) Coronavirus NL63 (PCR) Not Detected (NotDetected) Human Metapneumovir PCR Not Detected (NotDetected) Influenza Type A (PCR) Not Detected (NotDetected) Influenza Type B (PCR) Not Detected (NotDetected) M. pneumoniae (PCR) Not Detected (NotDetected) Parainfluenza 1 (PCR) Not Detected (NotDetected) Parainfluenza 2 (PCR) Not Detected (NotDetected) Parainfluenza 3 (PCR) Not Detected (NotDetected) Parainfluenza 4 (PCR) Not Detected (NotDetected) RSV (PCR) Not Detected (NotDetected) Entero/Rhino (PCR) Not Detected (NotDetected) 03/30/24 Range/Units 14:08 WBC (4.8-10.8) K/ul RBC (4.70-6.10) M/uL Hgb (14.0-18.0) g/dl Hct (42.0-52.0) % MCV (80.0-100.0) fL MCH (25.0-34.0) pg MCHC (32.0-36.0) g/dL RDW Std Deviation (36.4-46.3) fL RDW Coeff of Daniel (11.5-14.5) % Plt Count (130-400) K/uL MPV (9.4-12.4) fL Immature Gran % (Auto) % Neut % (Auto) % Lymph % (Auto) % [place] % (Auto) % Eos % (Auto) % Baso % (Auto) % Neut # (Auto) (1.40-6.50) K/uL Lymph # (Auto) (1.20-3.40) K/uL [place] # (Auto) (0.11-0.59) K/uL Eos # (Auto) (0.00-0.50) K/uL Baso # (Auto) (0.00-0.20) K/uL Immature Gran # (Auto) (0.01-0.20) K/uL PT (9.0-12.0) Seconds INR (0.9-1.1) APTT (21-31) Seconds PTT Ratio Sodium 139 Potassium 3.3 L Chloride (98-107) mmol/L Carbon Dioxide (21-32) mmol/L Anion Gap BUN (6-23) mg/dl Creatinine (0.6-1.4) mg/dl Est Cr Clr Drug Dosing ml/min eGFR BUN/Creatinine Ratio (10-20) Glucose (70-99(Fasting)) mg/dl Lactate (0.4-2.0) mmol/L Calcium (8.6-10.3) mg/dl Magnesium 1.0 L Total Bilirubin (0.2-1.0) mg/dl AST 90 H ALT (7-52) U/L Alkaline Phosphatase (34-104) U/L Troponin I High Sens (0-20) pg/ml Total Protein (6.0-8.3) gm/dl Albumin (3.4-5.0) gm/dl Globulin (2.5-4.0) gm/dl Albumin/Globulin Ratio (0.9-2) TSH (0.300-4.500) uIu/ml Urine Color Urine Appearance (Clear) Urine pH (4.5-7.5) Ur Specific [place] (1.000-1.030) Urine Protein (Negative) Urine Glucose (UA) (Negative) Urine Ketones (Negative) Urine Blood (Negative) Urine Nitrite (Negative) Urine Bilirubin (Negative) Urine Urobilinogen (Negative) Ur Leukocyte Esterase (Negative) Urine WBC (Auto) (0-5) /hpf Urine RBC (Auto) (0-2) /hpf U Hyaline Cast (Auto) (0-2) /lpf U Epithel Cells (Auto) (0-2) /hpf Urine Bacteria (Auto) (None Seen) Adenovirus (PCR) (NotDetected) B. pertussis DNA (PCR) (NotDetected) B.parapertussis DNA PCR (NotDetected) C. pneumoniae DNA (PCR) (NotDetected) Coronavirus OC43 (PCR) (NotDetected) Coronavirus HKU1 (PCR) (NotDetected) Coronavirus 229E (PCR) (NotDetected) SARS-CoV-2 (PCR) (NotDetected) Coronavirus NL63 (PCR) (NotDetected) Human Metapneumovir PCR (NotDetected) Influenza Type A (PCR) (NotDetected) Influenza Type B (PCR) (NotDetected) M. pneumoniae (PCR) (NotDetected) Parainfluenza 1 (PCR) (NotDetected) Parainfluenza 2 (PCR) (NotDetected) Parainfluenza 3 (PCR) (NotDetected) Parainfluenza 4 (PCR) (NotDetected) RSV (PCR) (NotDetected) Entero/Rhino (PCR) (NotDetected) Administered Medications Discontinued Medications Sodium Chloride (Nss) 500 mls @ 999 mls/hr IV .Q31M ONE Stop: 03/30/24 12:45 Last Infusion: 03/30/24 17:56 Dose: Infused Documented By: Admin: 03/30/24 13:27 Dose: 999 mls/hr Documented By: OTONIEL Cefepime HCl (Maxipime 2000mg) 2,000 mg in 20 mls @ 5 mls/min IV ONE ONE Stop: 03/30/24 12:48 Last Admin: 03/30/24 13:27 Dose: 5 mls/min Documented By: OTONIEL Magnesium Sulfate/Dextrose (Magnesium Sulfate / D5w) 1 gm in 100 mls @ 100 mls/hr IV Q1H ARTURO Stop: 03/30/24 16:34 Last Infusion: 03/30/24 17:55 Dose: Infused Documented By: Admin: 03/30/24 16:53 Dose: 100 mls/hr Documented By: Infusion: 03/30/24 16:39 Dose: Infused Documented By: Admin: 03/30/24 15:39 Dose: 100 mls/hr Documented By: DARA Ioversol (Optiray 320 100ml) 94 ml IV ONCE ONE Stop: 03/30/24 13:46 Last Admin: 03/30/24 13:46 Dose: 94 ml Documented By: KARTHIKEYAN Potassium Chloride (Potassium Chloride Crtab 20 Meq Tabcr) 20 meq PO NOW STA Stop: 03/30/24 14:35 Last Admin: 03/30/24 15:41 Dose: 20 meq Documented By: DARA Imaging Data Radiologist's Impression: Abdomen/Pelvis CT 03/30/24 12:15 EXAM: CT Abdomen and Pelvis With Intravenous Contrast INDICATION: Multiple falls. TECHNIQUE: Axial computed tomography images of the abdomen and pelvis with intravenous contrast. Sagittal and coronal reformatted images were created and reviewed. This CT exam was performed using one or more of the following dose reduction techniques: automated exposure control, adjustment of the mA and/or kV according to patient size, and/or use of iterative reconstruction technique. CONTRAST: 94ml of Optiray 320 was administered intravenously. COMPARISON: No relevant prior studies available. FINDINGS: Limitations: None. Lung bases: No abnormality noted. Pleural space: Loculated right basilar pleural effusion noted. Heart: No abnormality noted. Mediastinum: No abnormality noted. ABDOMEN: Liver: Normal size and contour. Hypodense typical of steatosis. No mass or ductal dilation. Gallbladder and bile ducts: No calcified stones or surrounding fluid. Pancreas: Homogeneous enhancement. No mass, inflammation or ductal dilation. Spleen: No significant abnormality noted. Adrenals: No significant abnormality noted. Kidneys and ureters: Simple bilateral renal cysts noted. No follow-up necessary. No stones or hydronephrosis. Stomach and bowel: Moderate to large amounts of diffuse colonic stool. Diverticulosis noted. No diverticulitis. Mild prominent fluid in nondilated small bowel loops in the left abdomen. No obstructing point. No inflammatory process noted. PELVIS: Appendix: No findings to suggest acute appendicitis. Bladder: The bladder is incompletely distended. There is asymmetric thickening of the right wall. No gas or stones. Reproductive: No abnormalities noted. ABDOMEN and PELVIS: Intraperitoneal space: No free air. No significant fluid collection. Bones/joints: Severe degenerative changes noted at multiple spinal levels. Posterior L4-L5 fusion hardware intact and well-seated. Metallic artifact limits assessment of the canal at these levels. No acute osseous abnormality identified. Soft tissues: Fat-containing right inguinal hernia noted. Suspect prior left inguinal hernia repair without recurrence. Vasculature: No abdominal aortic aneurysm. Lymph nodes: No pathologically enlarged lymph nodes. IMPRESSION: 1. No traumatic change identified. 2. Asymmetric right bladder wall thickening. While this could reflect underdistention, mass and cystitis should be considered and excluded. 3. Loculated right basilar pleural effusion. ACT 112: Negative or not required by law. Electronically signed by Sara Vazquez 03-30-2024 2:[address] 03/30/24 12:15 CT OF THE CERVICAL SPINE WITHOUT CONTRAST CLINICAL HISTORY: Falls. COMPARISON STUDY: Cervical spine radiographs March 17, 2013. MRI of the cervical spine March 19, 2013. TECHNIQUE: Helical axial images of the cervical spine were obtained without IV contrast. Sagittal and coronal reconstructions were viewed. Automated exposure control was utilized for the study. A dose lowering technique was utilized adhering to the principles of ALARA. FINDINGS: There is reversal of the cervical lordosis with anterolisthesis of C3 on C4 and C4 on C5, likely related to facet arthrosis. No acute cervical spine fractures are present. There are no suspicious lesions within the cervical spine. Central canal and neural foramen are suboptimally assessed given CT technique. There is moderate to severe multilevel disc space narrowing, endplate osteophytosis and facet arthrosis within the cervical spine. Postoperative findings within the right hemithorax with right apical soft tissue thickening are better depicted on the chest CT which will be reported separately. IMPRESSION: 1. No acute cervical spine fracture or subluxation. 2. Moderate to severe multilevel degenerative disc disease and facet arthrosis within the cervical spine. 3. Postoperative findings within the right hemithorax with nonspecific right apical soft tissue thickening better depicted on the chest CT which will be reported separately. ACT 112: Negative or not required by law. Electronically signed by: Jc Gipson M.D. 03/30/2024 2:[address] 03/30/24 12:15 EXAM: CT Chest With Intravenous Contrast INDICATION: Multiple falls. Shortness of breath. TECHNIQUE: Axial computed tomography images of the chest with intravenous contrast. Sagittal and coronal reformatted images were created and reviewed. This CT exam was performed using one or more of the following dose reduction techniques: automated exposure control, adjustment of the mA and/or kV according to patient size, and/or use of iterative reconstruction technique. CONTRAST: 94ml of Optiray 320 was administered intravenously. COMPARISON: No relevant prior studies available. FINDINGS: Limitations: None. Lungs and pleural spaces: 3 mm oval pleural-based right nodule series 7 image 34. Coarse scarring noted in the right upper and lower lung. There is a loculated right basilar pleural effusion measuring 14.1 cm transverse by 7.0 cm AP by 11.8 cm long. No associated gas. No pneumothorax. Heart: Cardiomegaly. Dense coronary calcification noted. No pericardial effusion. Thyroid: No abnormality noted. Bones/joints: Postoperative changes right chest wall with multiple right rib resection. Degenerative changes noted in the spine. No acute osseous abnormality. Soft tissues: No significant abnormality noted. Vasculature: Atherosclerotic calcification of the aorta and branches. No aneurysm. Lymph nodes: No enlarged lymph nodes. Liver: Fatty liver. IMPRESSION: 1. No acute abnormality identified. 2. Loculated right basilar pleural effusion. 3. Right pulmonary scarring and multiple right rib resection changes. ACT 112: Negative or not required by law. Electronically signed by Sara Vazquez 03-30-2024 2:[address] 03/30/24 12:15 EXAM: CT Head Without Intravenous Contrast INDICATION: Multiple falls yesterday. Weakness, dizziness and lightheadedness. TECHNIQUE: Axial computed tomography images of the head/brain without intravenous contrast. Sagittal and/or coronal reformats are provided. Sagittal and coronal reformatted images were created and reviewed. This CT exam was performed using one or more of the following dose reduction techniques: automated exposure control, adjustment of the mA and/or kV according to patient size, and/or use of iterative reconstruction technique. COMPARISON: No relevant prior studies available. FINDINGS: Limitations: None. Brain and extra-axial spaces: There is age appropriate cortical atrophy and chronic ischemic periventricular white matter hypodensity. No acute infarct, hemorrhage or mass noted. Bones/joints: No acute changes. Soft tissues: No significant abnormality noted. Vasculature: No acute abnormality noted. Sinuses: Mild chronic right maxillary sinus thickening. There is a 3 to 4 mm retention cyst or polyp in the floor of the left sphenoid sinus. There is mild chronic right frontal sinus thickening. Mastoid air cells: No mastoid effusion. Orbits: No significant abnormality noted. IMPRESSION: 1. Cerebral atrophy. No acute changes. 2. Mild chronic sinus disease. ACT 112: Negative or not required by law. Electronically signed by Sara Vazquez 03-30-2024 2:03 PM Chest X-Ray 03/30/24 12:17 XR chest 1V portable CLINICAL HISTORY: Weakness. Non-small cell lung cancer. COMPARISON STUDY: Chest radiograph April 18, 2023. Chest CT March 01, 2024. FINDINGS: There is no pneumothorax. Lobulated opacity at the medial right lung base corresponds to a right pleural effusion, as shown on prior CT. Postoperative deformity of the right upper chest wall is noted. Findings are better depicted on prior chest CT. Cardiomegaly is unchanged. There is no evidence for pulmonary edema. There is no consolidation to suggest pneumonia. IMPRESSION: 1. No pneumothorax. No consolidation to suggest pneumonia. 2. Postoperative findings within the right mid thorax, including right upper chest wall deformity, better depicted on recent chest CT. 3. Persistent loculated right pleural effusion. ACT 112: Negative or not required by law. Electronically signed by: Jc Gipson M.D. 03/30/2024 1:43 PM Discharge Plan Visit Data Chief Complaint: Shortness of Breath/Dyspnea Stated Complaint: SOB, FALL, AB BRUISING ED Provider: Stephan Friedman Discharge Problem: Weakness, Fall, Chest wall contusion, Abdominal wall contusion, Hypomagnesemia, Cellulitis Patient Disposition: Admitted As Inpatient Condition: Fair Discharge Instructions Interventions: ED Discharge Assessment Last Done: 03/30/24 17:53 Discharge Problem: Fall Qualifiers: Encounter type: initial encounter Qualified Code(s): W19.XXXA - Unspecified fall, initial encounter Chest wall contusion Qualifiers: Encounter type: initial encounter Laterality: right Qualified Code(s): S20.211A - Contusion of right front wall of thorax, initial encounter Abdominal wall contusion Qualifiers: Encounter type: initial encounter Qualified Code(s): S30.1XXA - Contusion of abdominal wall, initial encounter Cellulitis Qualifiers: Site of cellulitis: extremity Site of cellulitis of extremity: lower extremity Laterality: unspecified laterality Qualified Code(s): L03.119 - Cellulitis of unspecified part of limb
[2024-03-30 12:46] LABS: Basophils # (auto) 0.02 K/uL (0.00-0.20); Basophils % (auto) 0.3 %; Eosinophils # (auto) 0.01 K/uL (0.00-0.50); Eosinophils % (auto) 0.2 %; Hematocrit (blood only) 35.9 % (42.0-52.0); Hemoglobin 12.4 g/dl (14.0-18.0); Immature Granulocytes # (auto) 0.02 K/uL (0.01-0.20); Immature Granulocytes % (auto) 0.3 %; Lymphocytes # (auto) 0.32 K/uL (1.20-3.40); Lymphocytes % (auto) 5.2 %; Mean Corpuscular Hemoglobin 34.4 pg (25.0-34.0); Mean Corpuscular Hgb Conc 34.5 g/dL (32.0-36.0); Mean Corpuscular Volume 99.7 fL (80.0-100.0); Mean Platelet Volume 9.7 fL (9.4-12.4); Monocytes % (auto) 8.2 %; Neutrophils # (auto) 5.23 K/uL (1.40-6.50); Neutrophils % (auto) 85.8 %; Platelet Count 116 K/uL (130-400); RDW Coefficient of Variation 12.8 % (11.5-14.5); RDW Standard Deviation 46.3 fL (36.4-46.3)
[2024-03-30 12:47] LABS: Appearance Urine Clear (Clear); Bacteria Urine Automated None Seen (None Seen); Bilirubin Urine Negative (Negative); Blood Urine 1+ (Negative); Cast Urine Automated 0-2 /lpf (0-2); Color Urine Yellow; Epithelial Cell Urine Auto 0-2 /hpf (0-2); Glucose Urine UA Negative (Negative); Ketones Urine 1+ (Negative); Leukocyte Esterase Urine Negative (Negative); Nitrite Urine Negative (Negative); Protein Urine 1+ (Negative); RBC Urine Automated 0-2 /hpf (0-2); Specific Gravity Urine 1.019 (1.000-1.030); Urobilinogen Urine Negative (Negative); WBC Urine Automated 0-5 /hpf (0-5); pH Urine 5.5 (4.5-7.5)
[2024-03-30 13:04] LABS: Partial Thromboplastin Time 27 Seconds (21-31); Prothrombin Time 11.1 Seconds (9.0-12.0)
[2024-03-30 13:15] LABS: Alanine Aminotransferase 54 U/L (7-52); Albumin Globulin Ratio 1.7 (0.9-2); Alkaline Phosphatase 100 U/L (34-104); BUN Creatinine Ratio 29.8 (10-20); Bilirubin,Total 1.6 mg/dl (0.2-1.0); Blood Urea Nitrogen 28 mg/dl (6-23); Calcium 8.6 mg/dl (8.6-10.3); Carbon Dioxide 26 mmol/L (21-32); Chloride 104 mmol/L (98-107); Creatinine Clr Calc Pharmacy 64.5 ml/min; Globulin 2.4 gm/dl (2.5-4.0); Glucose 90 mg/dl (70-99(Fasting)); Thyroid Stimulating Hormone 3.468 uIu/ml (0.300-4.500); Total Protein 6.4 gm/dl (6.0-8.3); Troponin I High Sensitivity 14.7 pg/ml (0-20)
[2024-03-30] MEDS: CEFEPIME 2000MG 2,000 MG/20 ML SYR IV ONE (13:27)
[2024-03-30] MEDS: SODIUM CHLORIDE 0.9% 500 ML IV ONE (13:27)
--- NOTE | 2024-03-30 13:45 | XRay Report ---
XR chest 1V portable CLINICAL HISTORY: Weakness. Non-small cell lung cancer. COMPARISON STUDY: Chest radiograph April 18, 2023. Chest CT March 01, 2024. FINDINGS: There is no pneumothorax. Lobulated opacity at the medial right lung base corresponds to a right pleural effusion, as shown on prior CT. Postoperative deformity of the right upper chest wall i s noted. Findings are better depicted on prior chest CT. Cardiomegaly is unchanged. There is no evide nce for pulmonary edema. There is no consolidation to suggest pneumonia. IMPRESSION: 1. No pneumothorax. No consolidation to suggest pneumonia. 2. Postoperative findings within the right mid thorax, including right upper chest wall deformity, be tter depicted on recent chest CT. 3. Persistent loculated right pleural effusion. ACT 112: Negative or not required by law. Electronically signed by: Jc Gipson M.D. 03/30/2024 1:43 PM
[2024-03-30] MEDS: OPTIRAY 320 100ml IV ONE (13:46)
--- NOTE | 2024-03-30 14:03 | CT Scan Report ---
EXAM: CT Head Without Intravenous Contrast INDICATION: Multiple falls yesterday. Weakness, dizziness and lightheadedness. TECHNIQUE: Axial computed tomography images of the head/brain without intravenous contrast. Sagittal and/or coronal reformats are provided. Sagittal and coronal reformatted images were created and reviewed. This CT exam was performed using one or more of the following dose reduction techniques: automated exposure control, adjustment of the mA and/or kV according to patient size, and/or use of iterative reconstruction technique. COMPARISON: No relevant prior studies available. FINDINGS: Limitations: None. Brain and extra-axial spaces: There is age appropriate cortical atrophy and chronic ischemic periventricular white matter hypodensity. No acute infarct, hemorrhage or mass noted. Bones/joints: No acute changes. Soft tissues: No significant abnormality noted. Vasculature: No acute abnormality noted. Sinuses: Mild chronic right maxillary sinus thickening. There is a 3 to 4 mm retention cyst or polyp in the floor of the left sphenoid sinus. There is mild chronic right frontal sinus thickening. Mastoid air cells: No mastoid effusion. Orbits: No significant abnormality noted. IMPRESSION: 1. Cerebral atrophy. No acute changes. 2. Mild chronic sinus disease. ACT 112: Negative or not required by law. Electronically signed by Sara Vazquez 03-30-2024 2:03 PM
--- NOTE | 2024-03-30 14:07 | CT Scan Report ---
CT OF THE CERVICAL SPINE WITHOUT CONTRAST CLINICAL HISTORY: Falls. COMPARISON STUDY: Cervical spine radiographs March 17, 2013. MRI of the cervical spine March 052012. TECHNIQUE: Helical axial images of the cervical spine were obtained without IV contrast. Sagittal a nd coronal reconstructions were viewed. Automated exposure control was utilized for the study. A do se lowering technique was utilized adhering to the principles of ALARA. FINDINGS: There is reversal of the cervical lordosis with anterolisthesis of C3 on C4 and C4 on C5, l ikely related to facet arthrosis. No acute cervical spine fractures are present. There are no suspici ous lesions within the cervical spine. Central canal and neural foramen are suboptimally assessed giv en CT technique. There is moderate to severe multilevel disc space narrowing, endplate osteophytosis and facet arthrosis within the cervical spine. Postoperative findings within the right hemithorax wit h right apical soft tissue thickening are better depicted on the chest CT which will be reported sepa rately. IMPRESSION: 1. No acute cervical spine fracture or subluxation. 2. Moderate to severe multilevel degenerative disc disease and facet arthrosis within the cervical sp ine. 3. Postoperative findings within the right hemithorax with nonspecific right apical soft tissue thick ening better depicted on the chest CT which will be reported separately. ACT 112: Negative or not required by law. Electronically signed by: Jc Gipson M.D. 03/30/2024 2:05 PM
--- NOTE | 2024-03-30 14:11 | CT Scan Report ---
EXAM: CT Chest With Intravenous Contrast INDICATION: Multiple falls. Shortness of breath. TECHNIQUE: Axial computed tomography images of the chest with intravenous contrast. Sagittal and coronal reformatted images were created and reviewed. This CT exam was performed using one or more of the following dose reduction techniques: automated exposure control, adjustment of the mA and/or kV according to patient size, and/or use of iterative reconstruction technique. CONTRAST: 94ml of Optiray 320 was administered intravenously. COMPARISON: No relevant prior studies available. FINDINGS: Limitations: None. Lungs and pleural spaces: 3 mm oval pleural-based right nodule series 7 image 34. Coarse scarring noted in the right upper and lower lung. There is a loculated right basilar pleural effusion measuring 14.1 cm transverse by 7.0 cm AP by 11.8 cm long. No associated gas. No pneumothorax. Heart: Cardiomegaly. Dense coronary calcification noted. No pericardial effusion. Thyroid: No abnormality noted. Bones/joints: Postoperative changes right chest wall with multiple right rib resection. Degenerative changes noted in the spine. No acute osseous abnormality. Soft tissues: No significant abnormality noted. Vasculature: Atherosclerotic calcification of the aorta and branches. No aneurysm. Lymph nodes: No enlarged lymph nodes. Liver: Fatty liver. IMPRESSION: 1. No acute abnormality identified. 2. Loculated right basilar pleural effusion. 3. Right pulmonary scarring and multiple right rib resection changes. ACT 112: Negative or not required by law. Electronically signed by Sara Vazquez 03-30-2024 2:08 PM
[2024-03-30 14:33] LABS: Potassium 3.3 mmol/L (3.5-5.1)
--- NOTE | 2024-03-30 14:44 | CT Scan Report ---
EXAM: CT Abdomen and Pelvis With Intravenous Contrast INDICATION: Multiple falls. TECHNIQUE: Axial computed tomography images of the abdomen and pelvis with intravenous contrast. Sagittal and coronal reformatted images were created and reviewed. This CT exam was performed using one or more of the following dose reduction techniques: automated exposure control, adjustment of the mA and/or kV according to patient size, and/or use of iterative reconstruction technique. CONTRAST: 94ml of Optiray 320 was administered intravenously. COMPARISON: No relevant prior studies available. FINDINGS: Limitations: None. Lung bases: No abnormality noted. Pleural space: Loculated right basilar pleural effusion noted. Heart: No abnormality noted. Mediastinum: No abnormality noted. ABDOMEN: Liver: Normal size and contour. Hypodense typical of steatosis. No mass or ductal dilation. Gallbladder and bile ducts: No calcified stones or surrounding fluid. Pancreas: Homogeneous enhancement. No mass, inflammation or ductal dilation. Spleen: No significant abnormality noted. Adrenals: No significant abnormality noted. Kidneys and ureters: Simple bilateral renal cysts noted. No follow-up necessary. No stones or hydronephrosis. Stomach and bowel: Moderate to large amounts of diffuse colonic stool. Diverticulosis noted. No diverticulitis. Mild prominent fluid in nondilated small bowel loops in the left abdomen. No obstructing point. No inflammatory process noted. PELVIS: Appendix: No findings to suggest acute appendicitis. Bladder: The bladder is incompletely distended. There is asymmetric thickening of the right wall. No gas or stones. Reproductive: No abnormalities noted. ABDOMEN and PELVIS: Intraperitoneal space: No free air. No significant fluid collection. Bones/joints: Severe degenerative changes noted at multiple spinal levels. Posterior L4-L5 fusion hardware intact and well-seated. Metallic artifact limits assessment of the canal at these levels. No acute osseous abnormality identified. Soft tissues: Fat-containing right inguinal hernia noted. Suspect prior left inguinal hernia repair without recurrence. Vasculature: No abdominal aortic aneurysm. Lymph nodes: No pathologically enlarged lymph nodes. IMPRESSION: 1. No traumatic change identified. 2. Asymmetric right bladder wall thickening. While this could reflect underdistention, mass and cystitis should be considered and excluded. 3. Loculated right basilar pleural effusion. ACT 112: Negative or not required by law. Electronically signed by Sara Vazquez 03-30-2024 2:41 PM
[2024-03-30 15:03] LABS: Adenovirus PCR Not Detected (NotDetected); Bordetella parapertussis PCR Not Detected (NotDetected); Bordetella pertussis PCR Not Detected (NotDetected); Chlamydia pneumoniae PCR Not Detected (NotDetected); Coronavirus 229E PCR Not Detected (NotDetected); Coronavirus CoV-2 (COVID19)PCR Not Detected (NotDetected); Coronavirus HKU1 PCR Not Detected (NotDetected); Coronavirus NL63 PCR Not Detected (NotDetected); Coronavirus OC43PCR Not Detected (NotDetected); Human Metapneumovirus PCR Not Detected (NotDetected); Influenza A PCR Not Detected (NotDetected); Influenza B PCR Not Detected (NotDetected); Mycoplasma pneumoniae PCR Not Detected (NotDetected); Parainfluenza Virus 1 PCR Not Detected (NotDetected); Parainfluenza Virus 2 PCR Not Detected (NotDetected); Parainfluenza Virus 3 PCR Not Detected (NotDetected); Parainfluenza Virus 4 PCR Not Detected (NotDetected); Respiratory Syncytial VirusPCR Not Detected (NotDetected); Rhinovirus/Enterovirus PCR Not Detected (NotDetected)
--- NOTE | 2024-03-30 15:12 | History & Physical Report ---
Date of Service March 30, 2024 Assessment & Plan (1) Weakness: Plan: Weakness w/ associated falls; No precipitating symptoms but has noted that he sometimes stands up fast and will have dizziness - Admit - Currently stable and nontoxic-appearing; hemodynamically stable - No overt signs of infection and pt without infectious complaints - CBC RBC 3.60, H&H 12.4/35.9, MCH 34.4, platelets 116 - CMP K 3.3 (KCl 20 mEq in ED), BUN 28, Cr 0.94, BUN/creatinine ratio 29.8, total bili 1.6, AST 90, ALT 54, globulin 2.4 - Lactate 1.1, magnesium 1.0 (mag sulfate 1 g provided in ED) - UA without signs of infection - CXR no pneumothorax, no suggestive findings of pneumonia, postop findings with right mid thorax including right upper chest wall deformity, persistent loculated right pleural effusion. - CTAP asymmetric right bladder wall thickening, loculated right basilar pleural effusion - Cervical spine CT no acute cervical spine fracture or subluxation, moderate to severe multilevel degenerative disc disease and facet arthrosis cervical spine, postoperative findings within the right hemothorax with nonspecific right apical soft tissue thickening - Chest CT loculated right basilar pleural effusion, or pulmonary scarring multiple rib right resection changes; - Head CT cerebral atrophy, mild chronic sinus disease - Orthostatic vitals pending - PT/OT consults placed - Fall precautions - CBC + BMP am (2) Swelling of left lower extremity: Plan: Question of stasis dermatitis vs DVT vs cellulitis; H/o PAD - No tenderness to palpation or movement of the extremity on exam - Primary care note (10/01/2023) revealing L>R edema of BLL and mottled discoloration - SCDs bilaterally - Arterial duplex LLE (09/2022)- Short segment visualized LT distal FA, 30 to 49% stenosis of LT distal EIA, remainder of LLE arteries patent - Pending Venous doppler US LLE - Defer abx at this time; normal white count, no infectious symptoms HOWEVER if condition changes or negative US- Consider rocephin (3) Stage 3b chronic kidney disease: Plan: H/o CKD 2/2 renovascular disease s/p stent placement in LRA (2008), baseline Cr 1.5 and eGFR 50-55, follows w/ Dr. Sandra Diaz - No evidence of TONYA on labs - Home medications- lisinopril 5mg - Avoid NSAIDs - Renally dose medications - BMP am - UA w/o signs of infection; presence of protein, ketones, and blood (4) Chronic obstructive pulmonary disease: Plan: H/o per primary care note; Current SOB x 1 day with productive cough - H/o of lung CA as well, s/p resection, XRT, chemo- follows [facility] - Theophylline prn - Previous smoker, not current - Incentive spirometer (5) Coronary artery disease: Plan: S/p stent 2001, follows with Dr. Menjivar - No current symptoms - Takes ASA 81 mg Plan Anxiety- Sertraline, lorazepam prn Dispo: Admit Diet: Heart healthy VTE Prophylaxis: SCDs Code: Conditional Admission and Anticipated Discharge Date Admission Date: 03/30/2024 History of Present Illness Chief Complaint: SOB Primary Care Provider: Kendra Gipson MD 73-year-old male presenting for shortness of breath and associated weakness with falls. ED course: CBC RBC 3.6L, H&H 12.4/35.9, MCH 34.4, platelets 116; PT/INR WNL; CMP potassium 3.3 (replaced in ED 20 mEq), BUN 28, BUN/creatinine ratio 29.8; magnesium 1 (replaced in ED 1 g), total bilirubin 1.6, AST 90, ALT 54, globulin 2.4; UA 1+ protein, plus ketones, blood, no evidence of bacteria; BioFire negative.; CTAP asymmetric right bladder wall thickening, loculated right basilar pleural effusion; cervical spine CT no acute cervical spine fracture or subluxation, moderate to severe multilevel degenerative disc disease and facet arthrosis cervical spine, postoperative findings within the right hemothorax with nonspecific right apical soft tissue thickening; chest CT loculated right basilar pleural effusion, or pulmonary scarring multiple rib right resection changes; cerebral atrophy, mild chronic sinus disease; CXR no pneumothorax, no suggestive findings of pneumonia, postop findings with right mid thorax including right upper chest wall deformity, persistent loculated right pleural effusion.; EKG normal sinus rhythm rate around 80, RBBB. Provided with IVF (NSS), KCl, mag sulfate, and cefepime 2 g in ED. Patient is a 73-year-old male PMHx HTN, anxiety, CKD stage IIIb, CAD, GERD, COPD, and secondary hyperparathyroidism presenting for shortness of breath, weakness, and falls. States that these falls and weakness began 1 day prior to arrival. States that the dizzy this may be secondary to him standing up too fast, as it seems to be related to standing compared to being a random occurrence. States that he feels off balance and not so much as though the room is spinning. Instead of full falls, patient states that he rather stumbles and will bump into things causing his excessive bruising. Denies any chest pain or LOC. Believes that part of the reason he starts to feel off balance is because of his left extremity being so swollen, with his right also swollen but less significantly. Patient states that he cannot take water pills because it impairs his renal function. States that he has had this happen before but he does not remember what was done for him. Does have associated SOB that started yesterday as well, per patient. States that he is coughing up sputum but is unsure of the descriptive characteristics of such because he does not look at it. Denying additional URI symptoms, fever, or chills. Not having abdominal pain, N/V/D/C. Reports just feeling anxious about things ever since his 's recent passing approximately 1 month ago. Overall denying chest pain, palpitations, abdominal pain, N/V/D/C, numbness/tingling, or LUTS. Did not take a.m. medications. Please see Dr. Rojas's attestation for adjustments/additions to treatment plan. Allergies Allergy/AdvReac Type Severity Reaction Status Date / Time NSAIDS (Non-Steroidal AdvReac Unknown REDUCES Verified 10/01/23 08:56 Anti-Inflamma KIDNEY FUNCTION Home Medications Medication Instructions Recorded Confirmed Type melatonin 3 mg tablet 3 mg PO HS PRN sleep #14 tabs 11/03/18 03/30/24 Rx aspirin 81 mg tablet,delayed 81 mg PO 2XWK 10/22/21 03/30/24 History release magnesium 250 mg tablet 250 mg PO QAM 12/12/22 03/30/24 History nitroglycerin 0.4 mg sublingual 0.4 mg sublingual Q5M PRN chest 01/22/23 03/30/24 Rx tablet (Nitrostat) pain #25 tabs theophylline 300 mg 150 mg (1/2 x 300 mg) PO DAILY PRN 02/25/23 03/30/24 Rx tablet,extended release,12 hr Shortness Of Breath #45 tabs multivitamin 1 tab PO QAM 07/24/23 03/30/24 History pseudoephedrine HCl 30 mg tablet 30 mg PO Q6H PRN Congestion 07/24/23 03/30/24 History (Sudafed) simethicone 125 mg capsule (Gas 125 mg PO DAILY PRN BLOATING 07/24/23 03/30/24 History Relief (simethicone)) triamterene 75 See Rx Instructions PO DAILY edema 12/17/23 03/30/24 Rx mg-hydrochlorothiazide 50 mg tablet #90 tabs lorazepam 0.5 mg tablet 0.5 mg PO Q8H PRN anxiety #30 tabs 03/04/24 03/30/24 Rx allopurinol 100 mg tablet 100 mg PO QAM 03/30/24 03/30/24 History atorvastatin 80 mg tablet 80 mg PO QAM 03/30/24 03/30/24 History lisinopril 5 mg tablet 5 mg PO QAM 03/30/24 03/30/24 History metoprolol tartrate 50 mg tablet 12.5 mg PO BID 03/30/24 03/30/24 History omeprazole 20 mg capsule,delayed 20 mg PO QAM 03/30/24 03/30/24 History release sertraline 25 mg tablet 25 mg PO QAM 03/30/24 03/30/24 History Past Med/Surg History Problem List (Updated 03/30/24 @ 16:43 by Greg De La Fuente PA-C) Swelling of left lower extremity Stasis dermatitis Weakness Adjacent segment disease of lumbar spine with history of fusion procedure Foraminal stenosis of lumbosacral region History of fusion of lumbar spine Foot drop, right Spondylolisthesis Degenerative lumbar spinal stenosis Degenerative disc disease Lesion of left [place] kidney Microscopic hematuria Abdominal aortic ectasia (Chronic) 2.9 cm 12/18/22 Hypertension (Chronic) Anxiety (Chronic) History of colon polyps Rupture of right distal biceps tendon Tubular adenoma of colon (Chronic) Peripheral vascular disease (Chronic) History of gout (Chronic) Former smoker (Chronic) Diverticulosis (Chronic) Stage 3b chronic kidney disease (Chronic) follows with Dr. Diaz Hypercholesterolemia (Chronic) Dropfoot (Chronic) left Impaired fasting blood sugar (Chronic) Coronary artery disease (Chronic) LAD stent 2002 > follows with Dr. 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 Status post completion of combined radiation and chemotherapy radiation completed 05/18/2013 received 6000 cGy status post mediastinoscopy, right posterior lateral thoracotomy, right intracostal flap mobilization with coverage of the bronchial stump and mediastinal lymphadenectomy 07/08/2013 Stage [id number] GERD (gastroesophageal reflux disease) (Chronic) Chronic obstructive pulmonary disease (Chronic) Carotid artery plaque (Chronic) Medical History Biceps tendon tear rt arm (limb restriction) Myocardial Infarction 2002 Hx of cancer of lung chemo/radiation/surgery 2013 Vitamin D deficiency Vitamin B 12 deficiency Surgical History History of cataract surgery B/L, 10/30/22 and 11/13/22 History of tooth extraction History of heart artery stent 2002>1 stent placed at [facility] History of removal of Port-a-Cath A-port for chemo in past History of lobectomy of lung rt upper lung History of bronchoscopy History of esophagogastroduodenoscopy (EGD) History of colonoscopy History of surgery on arm left bicep tendon repair Hx of left inguinal hernia repair Hx of hand surgery right index finger from accident History of stent insertion of renal artery left H/O right inguinal hernia repair H/O total knee replacement rt/left H/O lumbosacral spine surgery Family History Father Myocardial infarction Mother Myocardial infarction Brother Myocardial infarction Sister Myocardial infarction Other Lung cancer No family history of adverse response to anesthesia Denies family history of Sudden Ovarian cancer Prostate cancer Dyslipidemia Breast cancer Colorectal cancer Social History Smoking Status: Never smoker Tobacco Type: Cigarettes and Cigars Age Started Using Tobacco: 15; Age Quit Using Tobacco: 52; packs per day: 1; Cigarettes Per Day: quit 2002; Second Hand Exposure: Yes (as a child); Do You Dip or Chew Tobacco: No; Hx Alcohol Use: Yes Alcohol type: beer Alcohol Intake Frequency: 4 or More x per/Week Alcohol Intake Frequency Comment: 1 drink per day Hx Substance Use: No Preferred Language: Azeri Communication Ability: Effective Visual Impairment: Limited Hearing Ability: Normal Qa 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: No Beliefs That Will Affect Care: None marital status: Current Living Situation: Spouse current occupational status: retired current occupation: used to work as [employer] How many Children do You have: 0 Feels Safe at Home: Yes Childhood Exposure to Second-Hand Smoke: Yes Diet: regular caffeine: Yes during the past year weight has: remained stable Dental Care, Regularly: No Physical Activity Frequency: 3-4 Times per Week Seatbelt Use: always Sunscreen Use: Yes Assistive Devices: Contacts, Denture - Upper, Denture - Lower and Glasses Review of Systems 2 Review of Systems: All systems reviewed & are unremarkable except as noted in Subjective Physical Exam 2 Physical Exam: General: No acute distress Skin: Warm and dry; Bilateral LE erythematous with L>R and edematous; extending to below knee no tenderness; No open wounds noted; multiple ecchymosis on extremities Head: Normocephalic, atraumatic Eyes: PERRL, conjunctivae clear, sclera non-icteric ENT: External ear and ear canal without swelling; nose atraumatic; fair dentition, tongue normal appearance Neck: Supple, no LAD Cardio: RRR, no M/G/R, S1 and S2 normal Resp: No respiratory distress, Lungs CTA in all lobes bilaterally, no wheezes, rales, or rhonchi; R base with decreased breath sounds Abdomen: Soft, symmetric, nontender; No masses or hepatosplenomegaly MSK: No deformities, full ROM throughout; pulses palpable and equal; edema bilateral LE, L>R Neuro: Awake, alert; Sensation intact bilaterally, decreased bilateral base of feet; CN intact Psych: Appropriate mood and affect Brother is present in room at time of visit. Results & Data Results & Data Vital Signs (Past 12 Hours) Vital Signs Temp Pulse Resp BP Pulse Ox O2 Del Method 03/30/24 14:03 67 19 94 03/30/24 14:00 140/85 03/30/24 13:51 83 23 95 03/30/24 13:00 157/79 H 03/30/24 13:00 76 22 03/30/24 12:45 73 19 03/30/24 12:20 97 Room Air 03/30/24 12:08 79 03/30/24 12:03 73 20 95 03/30/24 12:00 140/88 03/30/24 11:57 77 20 95 03/30/24 11:53 134/89 03/30/24 11:52 98 Room Air 03/30/24 11:52 37 C 80 22 134/89 98 Room Air Laboratory Results 03/30/24 03/30/24 03/30/24 14:08 12:52 12:14 WBC RBC Hgb Hct MCV MCH MCHC RDW Std Deviation RDW Coeff of Daniel Plt Count MPV Immature Gran % (Auto) Neut % (Auto) Lymph % (Auto) [place] % (Auto) Eos % (Auto) Baso % (Auto) Neut # (Auto) Lymph # (Auto) [place] # (Auto) Eos # (Auto) Baso # (Auto) Immature Gran # (Auto) PT INR APTT PTT Ratio Sodium 139 Potassium 3.3 L Chloride Carbon Dioxide Anion Gap BUN Creatinine Est Cr Clr Drug Dosing eGFR BUN/Creatinine Ratio Glucose Lactate 1.1 Calcium Magnesium 1.0 L Total Bilirubin AST 90 H ALT Alkaline Phosphatase Troponin I High Sens Total Protein Albumin Globulin Albumin/Globulin Ratio TSH Urine Color Yellow Urine Appearance Clear Urine pH 5.5 Ur Specific [place] 1.019 Urine Protein 1+ H Urine Glucose (UA) Negative Urine Ketones 1+ H Urine Blood 1+ H Urine Nitrite Negative Urine Bilirubin Negative Urine Urobilinogen Negative Ur Leukocyte Esterase Negative Urine WBC (Auto) 0-5 Urine RBC (Auto) 0-2 U Hyaline Cast (Auto) 0-2 U Epithel Cells (Auto) 0-2 Urine Bacteria (Auto) None Seen Adenovirus (PCR) B. pertussis DNA (PCR) B.parapertussis DNA PCR C. pneumoniae DNA (PCR) Coronavirus OC43 (PCR) Coronavirus HKU1 (PCR) Coronavirus 229E (PCR) SARS-CoV-2 (PCR) Coronavirus NL63 (PCR) Human Metapneumovir PCR Influenza Type A (PCR) Influenza Type B (PCR) M. pneumoniae (PCR) Parainfluenza 1 (PCR) Parainfluenza 2 (PCR) Parainfluenza 3 (PCR) Parainfluenza 4 (PCR) RSV (PCR) Entero/Rhino (PCR) 03/30/24 11:56 WBC 6.10 RBC 3.60 L Hgb 12.4 L Hct 35.9 L MCV 99.7 MCH 34.4 H MCHC 34.5 RDW Std Deviation 46.3 RDW Coeff of Daniel 12.8 Plt Count 116 L MPV 9.7 Immature Gran % (Auto) 0.3 Neut % (Auto) 85.8 Lymph % (Auto) 5.2 [place] % (Auto) 8.2 Eos % (Auto) 0.2 Baso % (Auto) 0.3 Neut # (Auto) 5.23 Lymph # (Auto) 0.32 L [place] # (Auto) 0.50 Eos # (Auto) 0.01 Baso # (Auto) 0.02 Immature Gran # (Auto) 0.02 PT 11.1 INR 1.0 APTT 27 PTT Ratio 1.0 Sodium TNP Potassium TNP Chloride 104 Carbon Dioxide 26 Anion Gap TNP BUN 28 H Creatinine 0.94 Est Cr Clr Drug Dosing 64.5 eGFR 85.07 BUN/Creatinine Ratio 29.8 H Glucose 90 Lactate Calcium 8.6 Magnesium TNP Total Bilirubin 1.6 H AST TNP ALT 54 H Alkaline Phosphatase 100 Troponin I High Sens 14.7 Total Protein 6.4 Albumin 4.0 Globulin 2.4 L Albumin/Globulin Ratio 1.7 TSH 3.468 Urine Color Urine Appearance Urine pH Ur Specific [place] Urine Protein Urine Glucose (UA) Urine Ketones Urine Blood Urine Nitrite Urine Bilirubin Urine Urobilinogen Ur Leukocyte Esterase Urine WBC (Auto) Urine RBC (Auto) U Hyaline Cast (Auto) U Epithel Cells (Auto) Urine Bacteria (Auto) Adenovirus (PCR) Not Detected B. pertussis DNA (PCR) Not Detected B.parapertussis DNA PCR Not Detected C. pneumoniae DNA (PCR) Not Detected Coronavirus OC43 (PCR) Not Detected Coronavirus HKU1 (PCR) Not Detected Coronavirus 229E (PCR) Not Detected SARS-CoV-2 (PCR) Not Detected Coronavirus NL63 (PCR) Not Detected Human Metapneumovir PCR Not Detected Influenza Type A (PCR) Not Detected Influenza Type B (PCR) Not Detected M. pneumoniae (PCR) Not Detected Parainfluenza 1 (PCR) Not Detected Parainfluenza 2 (PCR) Not Detected Parainfluenza 3 (PCR) Not Detected Parainfluenza 4 (PCR) Not Detected RSV (PCR) Not Detected Entero/Rhino (PCR) Not Detected Diagnostic Findings Abdomen/Pelvis CT 03/30/24 12:15 EXAM: CT Abdomen and Pelvis With Intravenous Contrast INDICATION: Multiple falls. TECHNIQUE: Axial computed tomography images of the abdomen and pelvis with intravenous contrast. Sagittal and coronal reformatted images were created and reviewed. This CT exam was performed using one or more of the following dose reduction techniques: automated exposure control, adjustment of the mA and/or kV according to patient size, and/or use of iterative reconstruction technique. CONTRAST: 94ml of Optiray 320 was administered intravenously. COMPARISON: No relevant prior studies available. FINDINGS: Limitations: None. Lung bases: No abnormality noted. Pleural space: Loculated right basilar pleural effusion noted. Heart: No abnormality noted. Mediastinum: No abnormality noted. ABDOMEN: Liver: Normal size and contour. Hypodense typical of steatosis. No mass or ductal dilation. Gallbladder and bile ducts: No calcified stones or surrounding fluid. Pancreas: Homogeneous enhancement. No mass, inflammation or ductal dilation. Spleen: No significant abnormality noted. Adrenals: No significant abnormality noted. Kidneys and ureters: Simple bilateral renal cysts noted. No follow-up necessary. No stones or hydronephrosis. Stomach and bowel: Moderate to large amounts of diffuse colonic stool. Diverticulosis noted. No diverticulitis. Mild prominent fluid in nondilated small bowel loops in the left abdomen. No obstructing point. No inflammatory process noted. PELVIS: Appendix: No findings to suggest acute appendicitis. Bladder: The bladder is incompletely distended. There is asymmetric thickening of the right wall. No gas or stones. Reproductive: No abnormalities noted. ABDOMEN and PELVIS: Intraperitoneal space: No free air. No significant fluid collection. Bones/joints: Severe degenerative changes noted at multiple spinal levels. Posterior L4-L5 fusion hardware intact and well-seated. Metallic artifact limits assessment of the canal at these levels. No acute osseous abnormality identified. Soft tissues: Fat-containing right inguinal hernia noted. Suspect prior left inguinal hernia repair without recurrence. Vasculature: No abdominal aortic aneurysm. Lymph nodes: No pathologically enlarged lymph nodes. IMPRESSION: 1. No traumatic change identified. 2. Asymmetric right bladder wall thickening. While this could reflect underdistention, mass and cystitis should be considered and excluded. 3. Loculated right basilar pleural effusion. ACT 112: Negative or not required by law. Electronically signed by Sara Vazquez 03-30-2024 2:[address] 03/30/24 12:15 CT OF THE CERVICAL SPINE WITHOUT CONTRAST CLINICAL HISTORY: Falls. COMPARISON STUDY: Cervical spine radiographs March 17, 2013. MRI of the cervical spine March 19, 2013. TECHNIQUE: Helical axial images of the cervical spine were obtained without IV contrast. Sagittal and coronal reconstructions were viewed. Automated exposure control was utilized for the study. A dose lowering technique was utilized adhering to the principles of ALARA. FINDINGS: There is reversal of the cervical lordosis with anterolisthesis of C3 on C4 and C4 on C5, likely related to facet arthrosis. No acute cervical spine fractures are present. There are no suspicious lesions within the cervical spine. Central canal and neural foramen are suboptimally assessed given CT technique. There is moderate to severe multilevel disc space narrowing, endplate osteophytosis and facet arthrosis within the cervical spine. Postoperative findings within the right hemithorax with right apical soft tissue thickening are better depicted on the chest CT which will be reported separately. IMPRESSION: 1. No acute cervical spine fracture or subluxation. 2. Moderate to severe multilevel degenerative disc disease and facet arthrosis within the cervical spine. 3. Postoperative findings within the right hemithorax with nonspecific right apical soft tissue thickening better depicted on the chest CT which will be reported separately. ACT 112: Negative or not required by law. Electronically signed by: Jc Gipson M.D. 03/30/2024 2:[address] 03/30/24 12:15 EXAM: CT Chest With Intravenous Contrast INDICATION: Multiple falls. Shortness of breath. TECHNIQUE: Axial computed tomography images of the chest with intravenous contrast. Sagittal and coronal reformatted images were created and reviewed. This CT exam was performed using one or more of the following dose reduction techniques: automated exposure control, adjustment of the mA and/or kV according to patient size, and/or use of iterative reconstruction technique. CONTRAST: 94ml of Optiray 320 was administered intravenously. COMPARISON: No relevant prior studies available. FINDINGS: Limitations: None. Lungs and pleural spaces: 3 mm oval pleural-based right nodule series 7 image 34. Coarse scarring noted in the right upper and lower lung. There is a loculated right basilar pleural effusion measuring 14.1 cm transverse by 7.0 cm AP by 11.8 cm long. No associated gas. No pneumothorax. Heart: Cardiomegaly. Dense coronary calcification noted. No pericardial effusion. Thyroid: No abnormality noted. Bones/joints: Postoperative changes right chest wall with multiple right rib resection. Degenerative changes noted in the spine. No acute osseous abnormality. Soft tissues: No significant abnormality noted. Vasculature: Atherosclerotic calcification of the aorta and branches. No aneurysm. Lymph nodes: No enlarged lymph nodes. Liver: Fatty liver. IMPRESSION: 1. No acute abnormality identified. 2. Loculated right basilar pleural effusion. 3. Right pulmonary scarring and multiple right rib resection changes. ACT 112: Negative or not required by law. Electronically signed by Sara Vazquez 03-30-2024 2:[address] 03/30/24 12:15 EXAM: CT Head Without Intravenous Contrast INDICATION: Multiple falls yesterday. Weakness, dizziness and lightheadedness. TECHNIQUE: Axial computed tomography images of the head/brain without intravenous contrast. Sagittal and/or coronal reformats are provided. Sagittal and coronal reformatted images were created and reviewed. This CT exam was performed using one or more of the following dose reduction techniques: automated exposure control, adjustment of the mA and/or kV according to patient size, and/or use of iterative reconstruction technique. COMPARISON: No relevant prior studies available. FINDINGS: Limitations: None. Brain and extra-axial spaces: There is age appropriate cortical atrophy and chronic ischemic periventricular white matter hypodensity. No acute infarct, hemorrhage or mass noted. Bones/joints: No acute changes. Soft tissues: No significant abnormality noted. Vasculature: No acute abnormality noted. Sinuses: Mild chronic right maxillary sinus thickening. There is a 3 to 4 mm retention cyst or polyp in the floor of the left sphenoid sinus. There is mild chronic right frontal sinus thickening. Mastoid air cells: No mastoid effusion. Orbits: No significant abnormality noted. IMPRESSION: 1. Cerebral atrophy. No acute changes. 2. Mild chronic sinus disease. ACT 112: Negative or not required by law. Electronically signed by Sara Vazquez 03-30-2024 2:03 PM Chest X-Ray 03/30/24 12:17 XR chest 1V portable CLINICAL HISTORY: Weakness. Non-small cell lung cancer. COMPARISON STUDY: Chest radiograph April 18, 2023. Chest CT March 01, 2024. FINDINGS: There is no pneumothorax. Lobulated opacity at the medial right lung base corresponds to a right pleural effusion, as shown on prior CT. Postoperative deformity of the right upper chest wall is noted. Findings are better depicted on prior chest CT. Cardiomegaly is unchanged. There is no evidence for pulmonary edema. There is no consolidation to suggest pneumonia. IMPRESSION: 1. No pneumothorax. No consolidation to suggest pneumonia. 2. Postoperative findings within the right mid thorax, including right upper chest wall deformity, better depicted on recent chest CT. 3. Persistent loculated right pleural effusion. ACT 112: Negative or not required by law. Electronically signed by: Jc Gipson M.D. 03/30/2024 1:43 PM Supervising Physician Co-Signing Physician Notes Patient seen and examined, chart reviewed, case discussed with Greg De La Fuente PA-C and I agree with the assessment and plan as above except as otherwise noted Labs and images reviewed 73yo M who presents with dizziness, weakness, and worsened lightheadedness on standing .Multiple bruises and contusions overlying body. No fevers/chills/sweats. Does have bilateral L>R lower extremity swelling with erythema. No cough. No abdominal pain. CTchest with no evidence of pulmonary edema CTC-spine with no acute fracture/subluxation CTA/P: No acute traumatic change. Bladder wall thickening, cystitis/mass not excluded Bilateral lower extremity swelling left greater than right with marked erythema although no tenderness in left is more swollen than the right. Mild transaminitis; livers with normal size and contour and mild steatosis. No evidence of ductal dilation or gallbladder disease. Trended No leukocytosis. Bedside exam left lower extremity with marked asymmetric erythema and swelling however there is no significant tenderness. Venous Doppler is pending to evaluate for DVT. If this is present we will treat with anticoagulation and defer antibiotics as he does not feel white count, fever and he does not particularly tender. If no DVT is seen then given asymmetric erythema and swelling with acute change will treat with Rocephin at that point. Patient did have a prior left lower extremity arterial duplex which showed severe calcific plaque throughout the lower arterial system, short segment occlusion of the left distal FA, 30-49% stenosis of LT distal EIA, and a range of arteries patent. He has brisk capillary refill throughout the foot and there is no evidence of arterial compromise/ischemia on exam. Agree with above PG Care Time/CCT Total # of Minutes Spent Total Time Spent with Patient: Total time spent is greater than 50% in coordination of care (as documented) at patient's floor/unit and/or counseling patient: Coding Level of Care Code 78632 INT INP/OBS CARE 2/55MIN Diagnoses Weakness R53.1 Swelling of left lower extremity M79.89 Stage 3b chronic kidney disease N18.32 Chronic obstructive pulmonary disease J44.9 Coronary artery disease I25.10 Time Spent (min) 70
[2024-03-30] MEDS: MAGNESIUM SULFATE / D5W 1 GM/100 ML BAG IV SCH (15:39)
[2024-03-30] MEDS: POTASSIUM CHLORIDE CRTAB 20 MEQ TABCR PO STA (15:41)
--- NOTE | 2024-03-30 18:31 | Electrocardiogram Report ---
Test Reason : Blood Pressure : */* mmHG Vent. Rate : 79 BPM Atrial Rate : 79 BPM P-R Int : 146 ms QRS Dur : 124 ms QT Int : 434 ms P-R-T Axes : 47 63 41 degrees QTcB Int : 497 ms Normal sinus rhythm Right bundle branch block Abnormal ECG When compared with ECG of 18-Apr-2023 16:02, No significant change was found Confirmed by Kevin Felix ([id number]) on 03/30/2024 6:31:17 PM Referred By: REFERRED SELF Confirmed By: Kevin Felix
[2024-03-30] MEDS ORDERED: NITROGLYCERIN SL 0.4 MG/TAB TAB SL PRN (18:57)
[2024-03-30] MEDS ORDERED: METOPROLOL TARTRATE 50 MG TAB PO SCH (21:00)
[2024-03-30] MEDS: ACETAMINOPHEN 325 MG TAB PO ONE (21:22)
--- NOTE | 2024-03-30 21:29 | Ultrasound Report ---
Exam(s): US VENOUS LEFT LOWER EXTREMITY EXAM: US Duplex Left Lower Extremity Veins CLINICAL HISTORY: Reason for exam: LLE edema. TECHNIQUE: Real-time duplex ultrasound scan of the left lower extremity veins integrating B-mode two-dimensional vascular structure, Doppler spectral analysis, color flow Doppler imaging and compression. COMPARISON: 03/26/2017 FINDINGS: Deep veins: Unremarkable. The visualized deep veins of the left lower extremity are compressible with color flow. No visualized thrombus. Superficial veins: Unremarkable. Soft tissues: Soft tissue edema in the left lower extremity. IMPRESSION: 1. No DVT in the left lower extremity. 2. Soft tissue edema in the left lower extremity. Electronically signed by: Jeff Pemberton MD 03/30/24 21:28 PM
[2024-03-30] MEDS: METOPROLOL TARTRATE 25 MG TAB PO SCH (21:30)
[2024-03-31] MEDS: oxyCODONE HCL IR 5 MG TAB (IMMEDIATE RELEASE) PO STA (03:43)
[2024-03-31] MEDS: LORazepam 0.5 MG TAB PO PRN (05:42)
[2024-03-31] MEDS: PANTOprazole 40 MG TAB PO SCH (07:14)
[2024-03-31] MEDS: lisinopril 5 MG TAB PO SCH (07:14)
[2024-03-31] MEDS: ASPIRIN 81 MG ECTAB PO SCH (07:14)
[2024-03-31] MEDS: ATORVASTATIN 40 MG TAB PO SCH (07:14)
[2024-03-31] MEDS: allopurinoL 100 MG TAB PO SCH (07:14)
[2024-03-31] MEDS: MAGNESIUM OXIDE 400 MG TAB PO SCH (07:15)
[2024-03-31] MEDS: SERTRALINE HCL 50 MG TABLET PO SCH (07:15)
[2024-03-31] MEDS: TRIAMTERENE/HCTZ 37.5/25MG TAB PO SCH (07:15)
--- NOTE | 2024-03-31 07:41 | Hospitalist Progress Note ---
Date of Service March 31, 2024 Assessment & Plan (1) Weakness: Plan: Weakness w/ associated falls; No precipitating symptoms but has noted that he sometimes stands up fast and will have dizziness CT head with cerebral atrophy, mild chronic sinus disease CTAP w/ bladder wall thickening CT cervical spine without acute fx/subluxation but noting mod-severe multilevel disease Venous Doppler LLE NEGATIVE for DVT, WBC wnl on admission, afebrile. Lactic 1.1 TSH wnl. EKG w/ RBBB (noted on old EKGs) No CP reported, trop not elevated but check ECHO for completeness Notable hx lung ca/pancoast tumor * Chest CT noting loculated R basilar pleural effusion (appears unchanged, however do note concerns for possible recurrence most recently) and will consult pulm to weigh in. Denies increased SOB/sputum production recently but will monitor. Ceftriaxone started to cover for possible LLE cellulitis per supervising provider on admission. Orthostatic VS not positive but notable did get 1L NSS bolus prior to obtaining last night * Reports dizziness w/ standing today but already got his triamterene-HCTZ but will order additional 1L IVF and monitor repeat orthostatics/place diuretic on HOLD for now. K replacement for 3.2 with ongoing magnesium replacement (suspect 2nd to diuretic use). * Outpt cards noting systolic BPs consistently in 110s at home and ?if overtreated UA not overly infected but notable +RBC but no blood, concerning for rhabdo, also w/ LFT elevation and CK added to AM labs --> CK elevated 1023, could contribute to some swelling as well pain. Atorvastatin placed on HOLD -->W/ LFT elevation, checking Lyme/anaplasmosis as well. 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 Notable to have arterial disease in the past but no noted sx claudication, but could be entertained Pain control, oxycodone added as needed. Morphine 1mg for breakthrough (+BM this morning) PT/OT consults pending Labs in AM (2) Hypomagnesemia: Plan: Low at 1.0 on admission, suspect could be contributing to above Additional 2gm IV ordered for Mag 1.4, continue PO supp but consider increasing pending repeat levels (3) Rhabdomyolysis: Plan: checked given swelling as well as RBC on UA but without blood (venous doppler NEG for DVT) and was ELEVATED to 1023. IVF ordered/Lipitor 80mg on HOLD (got this morning) Monitor serial CK in AM Notable 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 ?cause for LFT elevation. ?alcohol use. No RUQ pain but does have some R shoulder discomfort (EKG stable on repeat, does have cervical spine disease but no acute fx or subluxation) (5) Swelling of left lower extremity: Plan: Question of stasis dermatitis vs DVT vs cellulitis; H/o PAD No tenderness to palpation or movement of the extremity on exam Primary care note (10/01/2023) revealing L>R edema of BLL and mottled discoloration SCDs bilaterally ordered Arterial duplex LLE (09/2022)- Short segment visualized LT distal FA, 30 to 49% stenosis of LT distal EIA, remainder of LLE arteries patent Venous doppler US LLE NEGATIVE Per Dr Rojas, added Ceftriaxone IV given venous Doppler negative for possible cellulitis but ?Rhabdo vs other. Monitor response to tx (did get 1time dose Cefepime in ER on admission) ?PAD, consider repeat imaging if not improving w/ above (6) Stage 3b chronic kidney disease: Plan: H/o CKD 2/2 renovascular disease s/p stent placement in LRA (2008), Follows w/ Dr. Sandra Diaz No TONYA on admission, lisinopril continued (unless orthostatic VS positive) Avoid NSAIDs UA w/ RBC but no blood, CK elevation as above and diuretics on HOLD as well as statin and will monitor repeat renal function/orthostatic VS (7) Chronic obstructive pulmonary disease: Plan: H/o per primary care note; Current SOB x 1 day with productive cough however declined increased sputum to myself and was on bedside commode on room air. CT chest as above, hx of lung ca s/p resection and XRT/chemo and follows w/ [place]. Consult pulm while inpatient for eval given loculated effusion if contributing to weakness/dizziness if recurrence. Could also consider MRI brain but LE symptoms appear c/w lumbar radiculopathy as above and recently seen by Dr Solo O2 as needed, added incentive spirometer. Theophylline prn (8) Coronary artery disease: Plan: S/p stent 2001, follows with Dr. Menjivar - No current symptoms - Takes ASA 81 mg Plan Anxiety- Sertraline, lorazepam prn Dispo: continued inpatient stay, holding statin/diuretic and providing IVF for hydration/elevated CK and consult for pulm given CT chest appearance. Ceftriaxone IV for possible cellulitis and Mag IV replacement in place. PT/OT consults pending Admission and Anticipated Discharge Date Admission Date: March 30, 2024 Supervising Physician Co-Signing Physician Notes The patient was not seen by me. The chart was reviewed. Case discussed with MOSHE Lange. Agree with assessment and plan Subjective Evaluated this morning, was initially down to xray for imaging, no changes, on room air now this morning. Reports improvement in breathing but ongoing pain to his lower back. Improved w/ oxycodone last night, presently having a bowel movement. Discussed continuing pain control but also LOW magnesium level along with elevated CK could have contributed to a mild rhabdo, venous doppler NEGATIVE. He reports he is on once a day magnesium and discussed may need increased. He also reports he did see Dr Solo earlier this month and we will entertain consultation if not having improvement with adjustments however also discussed orthostasis and concerns for VS last evening following 1L and possibly could still have issues w/ ongoing triamterene-HCTZ use and he does report today he has a little more lightheaded/dizziness when standing compared to last night and IVF have been ordered/diuretics on hold as can worsen rhabdo as well. No fever/chills, chest pain , abdominal pain or nausea at present time. Would like something for pain. Questions/concerns addressed at this time. Physical Exam 2 Physical Exam: General: 73 yo male sitting on bedside commode, moving his bowels, requesting something for lower back pain/leg pain HEENT; head atraumatic, normocephalic, mm DRY, trachea midline Resp: diminished in the bases but no obvious wheezing/crackles, on room air CV: RRR, faint systolic murmur, LLE edema>RLE, pulses present but cap refill wnl GI :+BS, soft/slight distension, moving bowels no santillan MSK/Neuro: not confused, no slurred speech, answering questions appropriately LLE w/ wrap in place, slightly red appearance b/l foot drop (from prior back surgery reported), decreased ability to dorsiflex L sided radiculopathy Psych Aox, cooperative with exam Results & Data Results & Data Vital Signs (Past 12 Hours) Vital Signs Temp Pulse Resp BP Pulse Ox O2 Del Method O2 Flow Rate 03/31/24 07:21 Nasal Cannula 2 03/31/24 07:10 36.4 C L 79 18 165/83 H 97 Nasal Cannula 2 03/30/24 21:00 Nasal Cannula 2 Laboratory Results 03/31/24 07:43 03/31/24 07:43 Mag 1.4 TB 1.7, AST 86, ALT 52, ALP 98 CK 1023 B12 506 UA 1+ protein, 1+ ketone, 1+ blood Diagnostic Findings Abdomen/Pelvis CT 03/30/24 12:15 EXAM: CT Abdomen and Pelvis With Intravenous Contrast INDICATION: Multiple falls. TECHNIQUE: Axial computed tomography images of the abdomen and pelvis with intravenous contrast. Sagittal and coronal reformatted images were created and reviewed. This CT exam was performed using one or more of the following dose reduction techniques: automated exposure control, adjustment of the mA and/or kV according to patient size, and/or use of iterative reconstruction technique. CONTRAST: 94ml of Optiray 320 was administered intravenously. COMPARISON: No relevant prior studies available. FINDINGS: Limitations: None. Lung bases: No abnormality noted. Pleural space: Loculated right basilar pleural effusion noted. Heart: No abnormality noted. Mediastinum: No abnormality noted. ABDOMEN: Liver: Normal size and contour. Hypodense typical of steatosis. No mass or ductal dilation. Gallbladder and bile ducts: No calcified stones or surrounding fluid. Pancreas: Homogeneous enhancement. No mass, inflammation or ductal dilation. Spleen: No significant abnormality noted. Adrenals: No significant abnormality noted. Kidneys and ureters: Simple bilateral renal cysts noted. No follow-up necessary. No stones or hydronephrosis. Stomach and bowel: Moderate to large amounts of diffuse colonic stool. Diverticulosis noted. No diverticulitis. Mild prominent fluid in nondilated small bowel loops in the left abdomen. No obstructing point. No inflammatory process noted. PELVIS: Appendix: No findings to suggest acute appendicitis. Bladder: The bladder is incompletely distended. There is asymmetric thickening of the right wall. No gas or stones. Reproductive: No abnormalities noted. ABDOMEN and PELVIS: Intraperitoneal space: No free air. No significant fluid collection. Bones/joints: Severe degenerative changes noted at multiple spinal levels. Posterior L4-L5 fusion hardware intact and well-seated. Metallic artifact limits assessment of the canal at these levels. No acute osseous abnormality identified. Soft tissues: Fat-containing right inguinal hernia noted. Suspect prior left inguinal hernia repair without recurrence. Vasculature: No abdominal aortic aneurysm. Lymph nodes: No pathologically enlarged lymph nodes. IMPRESSION: 1. No traumatic change identified. 2. Asymmetric right bladder wall thickening. While this could reflect underdistention, mass and cystitis should be considered and excluded. 3. Loculated right basilar pleural effusion. ACT 112: Negative or not required by law. Electronically signed by Sara Vazquez 03-30-2024 2:[address] 03/30/24 12:15 CT OF THE CERVICAL SPINE WITHOUT CONTRAST CLINICAL HISTORY: Falls. COMPARISON STUDY: Cervical spine radiographs March 17, 2013. MRI of the cervical spine March 19, 2013. TECHNIQUE: Helical axial images of the cervical spine were obtained without IV contrast. Sagittal and coronal reconstructions were viewed. Automated exposure control was utilized for the study. A dose lowering technique was utilized adhering to the principles of ALARA. FINDINGS: There is reversal of the cervical lordosis with anterolisthesis of C3 on C4 and C4 on C5, likely related to facet arthrosis. No acute cervical spine fractures are present. There are no suspicious lesions within the cervical spine. Central canal and neural foramen are suboptimally assessed given CT technique. There is moderate to severe multilevel disc space narrowing, endplate osteophytosis and facet arthrosis within the cervical spine. Postoperative findings within the right hemithorax with right apical soft tissue thickening are better depicted on the chest CT which will be reported separately. IMPRESSION: 1. No acute cervical spine fracture or subluxation. 2. Moderate to severe multilevel degenerative disc disease and facet arthrosis within the cervical spine. 3. Postoperative findings within the right hemithorax with nonspecific right apical soft tissue thickening better depicted on the chest CT which will be reported separately. ACT 112: Negative or not required by law. Electronically signed by: Jc Gipson M.D. 03/30/2024 2:[address] 03/30/24 12:15 EXAM: CT Chest With Intravenous Contrast INDICATION: Multiple falls. Shortness of breath. TECHNIQUE: Axial computed tomography images of the chest with intravenous contrast. Sagittal and coronal reformatted images were created and reviewed. This CT exam was performed using one or more of the following dose reduction techniques: automated exposure control, adjustment of the mA and/or kV according to patient size, and/or use of iterative reconstruction technique. CONTRAST: 94ml of Optiray 320 was administered intravenously. COMPARISON: No relevant prior studies available. FINDINGS: Limitations: None. Lungs and pleural spaces: 3 mm oval pleural-based right nodule series 7 image 34. Coarse scarring noted in the right upper and lower lung. There is a loculated right basilar pleural effusion measuring 14.1 cm transverse by 7.0 cm AP by 11.8 cm long. No associated gas. No pneumothorax. Heart: Cardiomegaly. Dense coronary calcification noted. No pericardial effusion. Thyroid: No abnormality noted. Bones/joints: Postoperative changes right chest wall with multiple right rib resection. Degenerative changes noted in the spine. No acute osseous abnormality. Soft tissues: No significant abnormality noted. Vasculature: Atherosclerotic calcification of the aorta and branches. No aneurysm. Lymph nodes: No enlarged lymph nodes. Liver: Fatty liver. IMPRESSION: 1. No acute abnormality identified. 2. Loculated right basilar pleural effusion. 3. Right pulmonary scarring and multiple right rib resection changes. ACT 112: Negative or not required by law. Electronically signed by Sara Vazquez 03-30-2024 2:[address] 03/30/24 12:15 EXAM: CT Head Without Intravenous Contrast INDICATION: Multiple falls yesterday. Weakness, dizziness and lightheadedness. TECHNIQUE: Axial computed tomography images of the head/brain without intravenous contrast. Sagittal and/or coronal reformats are provided. Sagittal and coronal reformatted images were created and reviewed. This CT exam was performed using one or more of the following dose reduction techniques: automated exposure control, adjustment of the mA and/or kV according to patient size, and/or use of iterative reconstruction technique. COMPARISON: No relevant prior studies available. FINDINGS: Limitations: None. Brain and extra-axial spaces: There is age appropriate cortical atrophy and chronic ischemic periventricular white matter hypodensity. No acute infarct, hemorrhage or mass noted. Bones/joints: No acute changes. Soft tissues: No significant abnormality noted. Vasculature: No acute abnormality noted. Sinuses: Mild chronic right maxillary sinus thickening. There is a 3 to 4 mm retention cyst or polyp in the floor of the left sphenoid sinus. There is mild chronic right frontal sinus thickening. Mastoid air cells: No mastoid effusion. Orbits: No significant abnormality noted. IMPRESSION: 1. Cerebral atrophy. No acute changes. 2. Mild chronic sinus disease. ACT 112: Negative or not required by law. Electronically signed by Sara Vazquez 03-30-2024 2:03 PM Chest X-Ray 03/30/24 12:17 XR chest 1V portable CLINICAL HISTORY: Weakness. Non-small cell lung cancer. COMPARISON STUDY: Chest radiograph April 18, 2023. Chest CT March 01, 2024. FINDINGS: There is no pneumothorax. Lobulated opacity at the medial right lung base corresponds to a right pleural effusion, as shown on prior CT. Postoperative deformity of the right upper chest wall is noted. Findings are better depicted on prior chest CT. Cardiomegaly is unchanged. There is no evidence for pulmonary edema. There is no consolidation to suggest pneumonia. IMPRESSION: 1. No pneumothorax. No consolidation to suggest pneumonia. 2. Postoperative findings within the right mid thorax, including right upper chest wall deformity, better depicted on recent chest CT. 3. Persistent loculated right pleural effusion. ACT 112: Negative or not required by law. Electronically signed by: Jc Gipson M.D. 03/30/2024 1:43 PM Venous Doppler Study 03/30/24 16:42 Exam(s): US VENOUS LEFT LOWER EXTREMITY EXAM: US Duplex Left Lower Extremity Veins CLINICAL HISTORY: Reason for exam: LLE edema. TECHNIQUE: Real-time duplex ultrasound scan of the left lower extremity veins integrating B-mode two-dimensional vascular structure, Doppler spectral analysis, color flow Doppler imaging and compression. COMPARISON: 03/26/2017 FINDINGS: Deep veins: Unremarkable. The visualized deep veins of the left lower extremity are compressible with color flow. No visualized thrombus. Superficial veins: Unremarkable. Soft tissues: Soft tissue edema in the left lower extremity. IMPRESSION: 1. No DVT in the left lower extremity. 2. Soft tissue edema in the left lower extremity. Electronically signed by: Jeff Pemberton MD 03/30/24 21:28 PM Chest X-Ray 03/31/24 07:41 XR chest 2V PA/lateral CLINICAL HISTORY: f/u effusion COMPARISON STUDY: Chest radiograph and chest CT March 30, 2024. FINDINGS: There is no pneumothorax. A loculated right pleural effusion is unchanged. Postoperative findings within the right chest wall with multiple rib resections are again noted. The appearance of the chest is unchanged since prior exam. Cardiomediastinal silhouette is stable. Mild bibasilar opacities favor atelectasis or scarring. There is no consolidation to suggest pneumonia. There is no evidence for pulmonary edema. IMPRESSION: 1. No significant change in appearance of the chest. Stable loculated right pleural effusion. 2. Bibasilar densities which favor atelectasis. ACT 112: Negative or not required by law. Electronically signed by: Jc Gipson M.D. 03/31/2024 9:13 AM PG Care Time/CCT Total # of Minutes Spent Total Time Spent with Patient: Total time spent is greater than 50% in coordination of care (as documented) at patient's floor/unit and/or counseling patient: Coding Level of Care Code 84984 SUB INP/OBS CARE 3/50MIN Diagnoses Weakness R53.1 Hypomagnesemia E83.42 Rhabdomyolysis M62.82 Elevated LFTs R79.89 Swelling of left lower extremity M79.89 Stage 3b chronic kidney disease N18.32 Chronic obstructive pulmonary disease J44.9 Coronary artery disease I25.10
[2024-03-31 08:09] LABS: Hematocrit (blood only) 33.8 % (42.0-52.0); Hemoglobin 11.6 g/dl (14.0-18.0); Mean Corpuscular Hemoglobin 34.4 pg (25.0-34.0); Mean Corpuscular Hgb Conc 34.3 g/dL (32.0-36.0); Mean Corpuscular Volume 100.3 fL (80.0-100.0); Mean Platelet Volume 9.8 fL (9.4-12.4); Platelet Count 100 K/uL (130-400); RDW Standard Deviation 46.8 fL (36.4-46.3); Red Blood Count 3.37 M/uL (4.70-6.10); White Blood Count 5.45 K/ul (4.8-10.8)
[2024-03-31 08:22] LABS: Albumin Globulin Ratio 1.5 (0.9-2); Albumin Level 3.4 gm/dl (3.4-5.0); BUN Creatinine Ratio 21.3 (10-20); Bilirubin,Total 1.7 mg/dl (0.2-1.0); Calcium 8.5 mg/dl (8.6-10.3); Creatinine Clr Calc Pharmacy 68.1 ml/min; Globulin 2.3 gm/dl (2.5-4.0); Magnesium 1.4 mg/dl (1.7-2.4); Potassium 3.4 mmol/L (3.5-5.1); Total Protein 5.7 gm/dl (6.0-8.3)
[2024-03-31] MEDS ORDERED: allopurinoL 100 MG TAB PO SCH (09:00)
[2024-03-31] MEDS ORDERED: lisinopril 5 MG TAB PO SCH (09:00)
[2024-03-31] MEDS ORDERED: TRIAMTERENE/HCTZ 37.5/25MG TAB PO SCH (09:00)
[2024-03-31] MEDS ORDERED: NON-FORMULARY MEDICATION (Omeprazole 20 mg capsule,delayed release(DR/EC)) PO SCH (09:00)
[2024-03-31] MEDS ORDERED: ATORVASTATIN 40 MG TAB PO SCH (09:00)
--- NOTE | 2024-03-31 09:14 | XRay Report ---
XR chest 2V PA/lateral CLINICAL HISTORY: f/u effusion COMPARISON STUDY: Chest radiograph and chest CT March 30, 2024. FINDINGS: There is no pneumothorax. A loculated right pleural effusion is unchanged. Postoperative fi ndings within the right chest wall with multiple rib resections are again noted. The appearance of th e chest is unchanged since prior exam. Cardiomediastinal silhouette is stable. Mild bibasilar opaciti es favor atelectasis or scarring. There is no consolidation to suggest pneumonia. There is no evidenc e for pulmonary edema. IMPRESSION: 1. No significant change in appearance of the chest. Stable loculated right pleural effusion. 2. Bibasilar densities which favor atelectasis. ACT 112: Negative or not required by law. Electronically signed by: Jc Gipson M.D. 03/31/2024 9:13 AM
[2024-03-31] MEDS: POTASSIUM CHLORIDE CRTAB 20 MEQ TABCR PO STA (09:29)
[2024-03-31] MEDS: oxyCODONE HCL IR 5 MG TAB (IMMEDIATE RELEASE) PO PRN (09:29)
[2024-03-31] MEDS: THEOPHYLLINE 300MG EXTENDED REL TAB PO PRN (09:29)
[2024-03-31] MEDS: SODIUM CHLORIDE 0.9% 1,000 ML IV SCH (09:38)
[2024-03-31] MEDS: MAGNESIUM SULFATE / D5W 1 GM/100 ML BAG IV SCH (09:38)
[2024-03-31] MEDS: MoRPHine SULFATE 2 MG/ML CARP IV STA (11:35)
--- NOTE | 2024-03-31 13:22 | Pulmonary Consultation ---
Date of Consultation March 31, 2024 Assessment & Plan (1) Pleural effusion: (2) Chronic obstructive pulmonary disease: Plan Impression: 73-year-old male with a history of squamous cell carcinoma/Pancoast tumor resected in 2013. He is admitted with weakness and falls. CT scan dem onstrates a persistent small subpulmonic right-sided effusion with few loculations. It is not significantly changed in size over the last 6 or 8 years. Recommendations: 1. Pleural effusion: This is chronic in nature. It is not contributing to the patient's symptoms at all and there is no indication for sampling at this point in time. He does not require antibiotics for this. 2. COPD: PFTs are not available in our system. The patient gets most of his care through [facility]. He is not bronchospastic currently and there is no indication for steroids. Apparently the patient uses theophylline on an as-needed basis for which she has a very unusual respiratory regiment however if this works for him and has been prescribed by his outpatient pulmonary team at [facility], he can continue this medication. 3. Hypoxemia: Stable and chronic. Continue oxygen to keep saturations at or above 90%. From a pulmonary standpoint, the patient appears to be at his baseline. He can continue to follow with [facility] pulmonology going forward. Again no acute intervention is required currently. Pulmonary will sign off. Feel free to contact us with questions or concerns History of Present Illness Attending Physician: Marcelino Barahona MD History of Present Illness Asked by hospitalist to evaluate this patient with chronic right pleural effusion. History is obtained from discussion with the patient as well as review the electronic medical record. Patient is a 73-year-old male who was admitted to the hospital 03/30/2024 with complaints of weakness and associated falls. As part of his workup he had a CT performed showing a right basilar pleural effusion which has been present dating back to 2016. He also had some swelling of his lower extremity. He is known to have COPD. He quit smoking back in 2002. He has a history of lung cancer and is been treated with resection and XRT and chemotherapy and is established with medical oncology at [facility]. He recently was started on supplemental oxygen. He is coughing and expectorating some phlegm. He has not had any hemoptysis. He denies fevers chills night sweats or other constitutional symptoms. Allergies Allergy/AdvReac Type Severity Reaction Status Date / Time NSAIDS (Non-Steroidal AdvReac Unknown REDUCES Verified 10/01/23 08:56 Anti-Inflamma KIDNEY FUNCTION Home Medications Medication Instructions Recorded Confirmed Type melatonin 3 mg tablet 3 mg PO HS PRN sleep #14 tabs 11/03/18 03/30/24 Rx aspirin 81 mg tablet,delayed 81 mg PO 2XWK 10/22/21 03/30/24 History release magnesium 250 mg tablet 250 mg PO QAM 12/12/22 03/30/24 History nitroglycerin 0.4 mg sublingual 0.4 mg sublingual Q5M PRN chest 01/22/2303/30 Rx tablet (Nitrostat) pain #25 tabs theophylline 300 mg 150 mg (1/2 x 300 mg) PO DAILY PRN 02/25/23 03/30/24 Rx tablet,extended release,12 hr Shortness Of Breath #45 tabs multivitamin 1 tab PO QAM 07/24/23 03/30/24 History pseudoephedrine HCl 30 mg tablet 30 mg PO Q6H PRN Congestion 07/24/23 03/30/24 History (Sudafed) simethicone 125 mg capsule (Gas 125 mg PO DAILY PRN BLOATING 07/24/23 03/30/24 History Relief (simethicone)) triamterene 75 See Rx Instructions PO DAILY edema 12/17/23 03/30/24 Rx mg-hydrochlorothiazide 50 mg tablet #90 tabs lorazepam 0.5 mg tablet 0.5 mg PO Q8H PRN anxiety #30 tabs 03/04/24 03/30/24 Rx allopurinol 100 mg tablet 100 mg PO QAM 03/30/24 03/30/24 History atorvastatin 80 mg tablet 80 mg PO QAM 03/30/24 03/30/24 History lisinopril 5 mg tablet 5 mg PO QAM 03/30/24 03/30/24 History metoprolol tartrate 50 mg tablet 12.5 mg PO BID 03/30/24 03/30/24 History omeprazole 20 mg capsule,delayed 20 mg PO QAM 03/30/24 03/30/24 History release sertraline 25 mg tablet 25 mg PO QAM 03/30/24 03/30/24 History Patient History Medical History Biceps tendon tear rt arm (limb restriction) Myocardial Infarction 2002 Hx of cancer of lung chemo/radiation/surgery 2013 Vitamin D deficiency Vitamin B 12 deficiency Surgical History History of cataract surgery B/L, 10/30/22 and 11/13/22 History of tooth extraction History of heart artery stent 2002>1 stent placed at [facility] History of removal of Port-a-Cath A-port for chemo in past History of lobectomy of lung rt upper lung History of bronchoscopy History of esophagogastroduodenoscopy (EGD) History of colonoscopy History of surgery on arm left bicep tendon repair Hx of left inguinal hernia repair Hx of hand surgery right index finger from accident History of stent insertion of renal artery left H/O right inguinal hernia repair H/O total knee replacement rt/left H/O lumbosacral spine surgery Family History Father Myocardial infarction Mother Myocardial infarction Brother Myocardial infarction Sister Myocardial infarction Other Lung cancer No family history of adverse response to anesthesia Denies family history of Sudden Ovarian cancer Prostate cancer Dyslipidemia Breast cancer Colorectal cancer Social History Smoking Status: Former smoker Tobacco Type: Cigarettes and Cigars Age Started Using Tobacco: 15; Age Quit Using Tobacco: 52; packs per day: 1; Cigarettes Per Day: quit 2002; Second Hand Exposure: Yes (as a child); Do You Dip or Chew Tobacco: No; Hx Alcohol Use: Yes Alcohol type: beer Alcohol Intake Frequency: 4 or More x per/Week Alcohol Intake Frequency Comment: 1 drink per day Hx Substance Use: No Preferred Language: Albanian Communication Ability: Effective Visual Impairment: Limited Hearing Ability: Normal Lead Former Required: No Beliefs That Will Affect Care: None marital status: Current Living Situation: Alone current occupational status: retired 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 No additions or deletions Physical Exam Constitutional: + frail appearing; no acute distress Eyes: + anicteric sclerae ENMT: Ears: no external ear abnormality Nose: no external nose abnormality Respiratory: normal respiratory effort Auscultation: lungs clear to auscultation bilaterally Cardiovascular: Rate/Rhythm: regular rate and regular rhythm Heart Sounds: no gallop, no murmur and no cardiac rub Vessels: no JVD Extremities: + edema (L>R, left leg with some mottled discoloration) thickened toenails - black discoloration great toenail Psychiatric: Orientation: alert and cooperative Results & Data Results & Data Vital Signs (Past 12 Hours) Vital Signs Temp Pulse Resp BP BP Pulse Ox O2 Del Method 03/31/24 07:40 36.3 C L 72 20 164/88 H 98 Nasal Cannula 03/31/24 07:21 Nasal Cannula 03/31/24 07:10 36.4 C L 79 18 165/83 H 97 Nasal Cannula O2 Flow Rate 03/31/24 07:40 2 03/31/24 07:21 2 03/31/24 07:10 2 Critical Care Results & Data Vital Signs (Past 12 Hours) Vital Signs Temp Pulse Resp BP BP Pulse Ox O2 Del Method 03/31/24 07:40 36.3 C L 72 20 164/88 H 98 Nasal Cannula 03/31/24 07:21 Nasal Cannula 03/31/24 07:10 36.4 C L 79 18 165/83 H 97 Nasal Cannula O2 Flow Rate 03/31/24 07:40 2 03/31/24 07:21 2 03/31/24 07:10 2 Lab & Micro Results (Past 24 Hours) RBC 3.37 M/uL (4.70-6.10) L 03/31/24 WBC 5.45 K/ul (4.8-10.8) 03/31/24 Hgb 11.6 g/dl (14.0-18.0) L 03/31/24 Hct 33.8 % (42.0-52.0) L 03/31/24 MCV 100.3 fL (80.0-100.0) H 03/31/24 MCH 34.4 pg (25.0-34.0) H 03/31/24 MCHC 34.3 g/dL (32.0-36.0) 03/31/24 RDW Standard Deviation 46.8 fL (36.4-46.3) H 03/31/24 RDW Coefficient of Variation 13.0 % (11.5-14.5) 03/31/24 Plt Count 100 K/uL (130-400) L 03/31/24 MPV 9.8 fL (9.4-12.4) 03/31/24 Na 140 mmol/L (136-145) 03/31/24 K 3.4 mmol/L (3.5-5.1) L 03/31/24 Cl 106 mmol/L (98-107) 03/31/24 CO2 27 mmol/L (21-32) 03/31/24 Anion Gap 7 (3-11) 03/31/24 BUN 19 mg/dl (6-23) 03/31/24 Creatinine 0.89 mg/dl (0.6-1.4) 03/31/24 BUN/Creatinine Ratio 21.3 (10-20) H 03/31/24 Glu 103 mg/dl (70-99(Fasting)) H 03/31/24 Ca 8.5 mg/dl (8.6-10.3) L 03/31/24 Total Bilirubin 1.7 mg/dl (0.2-1.0) H 03/31/24 AST 86 U/L (13-39) H 03/31/24 ALT 52 U/L (7-52) 03/31/24 Alkaline Phosphatase 98 U/L (34-104) 03/31/24 TP 5.7 gm/dl (6.0-8.3) L 03/31/24 Albumin 3.4 gm/dl (3.4-5.0) 03/31/24 Globulin 2.3 gm/dl (2.5-4.0) L 03/31/24 Albumin/Globulin Ratio 1.5 (0.9-2) 03/31/24 Mg 1.4 mg/dl (1.7-2.4) L 03/31/24 07:43 Calcium Level 8.5 mg/dl (8.6-10.3) L 03/31/24 07:43 Diagnostic Findings (Past 24 Hours) Abdomen/Pelvis CT 03/30/24 12:15 EXAM: CT Abdomen and Pelvis With Intravenous Contrast INDICATION: Multiple falls. TECHNIQUE: Axial computed tomography images of the abdomen and pelvis with intravenous contrast. Sagittal and coronal reformatted images were created and reviewed. This CT exam was performed using one or more of the following dose reduction techniques: automated exposure control, adjustment of the mA and/or kV according to patient size, and/or use of iterative reconstruction technique. CONTRAST: 94ml of Optiray 320 was administered intravenously. COMPARISON: No relevant prior studies available. FINDINGS: Limitations: None. Lung bases: No abnormality noted. Pleural space: Loculated right basilar pleural effusion noted. Heart: No abnormality noted. Mediastinum: No abnormality noted. ABDOMEN: Liver: Normal size and contour. Hypodense typical of steatosis. No mass or ductal dilation. Gallbladder and bile ducts: No calcified stones or surrounding fluid. Pancreas: Homogeneous enhancement. No mass, inflammation or ductal dilation. Spleen: No significant abnormality noted. Adrenals: No significant abnormality noted. Kidneys and ureters: Simple bilateral renal cysts noted. No follow-up necessary. No stones or hydronephrosis. Stomach and bowel: Moderate to large amounts of diffuse colonic stool. Diverticulosis noted. No diverticulitis. Mild prominent fluid in nondilated small bowel loops in the left abdomen. No obstructing point. No inflammatory process noted. PELVIS: Appendix: No findings to suggest acute appendicitis. Bladder: The bladder is incompletely distended. There is asymmetric thickening of the right wall. No gas or stones. Reproductive: No abnormalities noted. ABDOMEN and PELVIS: Intraperitoneal space: No free air. No significant fluid collection. Bones/joints: Severe degenerative changes noted at multiple spinal levels. Posterior L4-L5 fusion hardware intact and well-seated. Metallic artifact limits assessment of the canal at these levels. No acute osseous abnormality identified. Soft tissues: Fat-containing right inguinal hernia noted. Suspect prior left inguinal hernia repair without recurrence. Vasculature: No abdominal aortic aneurysm. Lymph nodes: No pathologically enlarged lymph nodes. IMPRESSION: 1. No traumatic change identified. 2. Asymmetric right bladder wall thickening. While this could reflect underdistention, mass and cystitis should be considered and excluded. 3. Loculated right basilar pleural effusion. ACT 112: Negative or not required by law. Electronically signed by Sara Vazquez 03-30-2024 2:[address] 03/30/24 12:15 CT OF THE CERVICAL SPINE WITHOUT CONTRAST CLINICAL HISTORY: Falls. COMPARISON STUDY: Cervical spine radiographs March 17, 2013. MRI of the cervical spine March 19, 2013. TECHNIQUE: Helical axial images of the cervical spine were obtained without IV contrast. Sagittal and coronal reconstructions were viewed. Automated exposure control was utilized for the study. A dose lowering technique was utilized adhering to the principles of ALARA. FINDINGS: There is reversal of the cervical lordosis with anterolisthesis of C3 on C4 and C4 on C5, likely related to facet arthrosis. No acute cervical spine fractures are present. There are no suspicious lesions within the cervical spine. Central canal and neural foramen are suboptimally assessed given CT technique. There is moderate to severe multilevel disc space narrowing, endplate osteophytosis and facet arthrosis within the cervical spine. Postoperative findings within the right hemithorax with right apical soft tissue thickening are better depicted on the chest CT which will be reported separately. IMPRESSION: 1. No acute cervical spine fracture or subluxation. 2. Moderate to severe multilevel degenerative disc disease and facet arthrosis within the cervical spine. 3. Postoperative findings within the right hemithorax with nonspecific right apical soft tissue thickening better depicted on the chest CT which will be reported separately. ACT 112: Negative or not required by law. Electronically signed by: Jc Gipson M.D. 03/30/2024 2:[address] 03/30/24 12:15 EXAM: CT Chest With Intravenous Contrast INDICATION: Multiple falls. Shortness of breath. TECHNIQUE: Axial computed tomography images of the chest with intravenous contrast. Sagittal and coronal reformatted images were created and reviewed. This CT exam was performed using one or more of the following dose reduction techniques: automated exposure control, adjustment of the mA and/or kV according to patient size, and/or use of iterative reconstruction technique. CONTRAST: 94ml of Optiray 320 was administered intravenously. COMPARISON: No relevant prior studies available. FINDINGS: Limitations: None. Lungs and pleural spaces: 3 mm oval pleural-based right nodule series 7 image 34. Coarse scarring noted in the right upper and lower lung. There is a loculated right basilar pleural effusion measuring 14.1 cm transverse by 7.0 cm AP by 11.8 cm long. No associated gas. No pneumothorax. Heart: Cardiomegaly. Dense coronary calcification noted. No pericardial effusion. Thyroid: No abnormality noted. Bones/joints: Postoperative changes right chest wall with multiple right rib resection. Degenerative changes noted in the spine. No acute osseous abnormality. Soft tissues: No significant abnormality noted. Vasculature: Atherosclerotic calcification of the aorta and branches. No aneurysm. Lymph nodes: No enlarged lymph nodes. Liver: Fatty liver. IMPRESSION: 1. No acute abnormality identified. 2. Loculated right basilar pleural effusion. 3. Right pulmonary scarring and multiple right rib resection changes. ACT 112: Negative or not required by law. Electronically signed by Sara Vazquez 03-30-2024 2:[address] 03/30/24 12:15 EXAM: CT Head Without Intravenous Contrast INDICATION: Multiple falls yesterday. Weakness, dizziness and lightheadedness. TECHNIQUE: Axial computed tomography images of the head/brain without intravenous contrast. Sagittal and/or coronal reformats are provided. Sagittal and coronal reformatted images were created and reviewed. This CT exam was performed using one or more of the following dose reduction techniques: automated exposure control, adjustment of the mA and/or kV according to patient size, and/or use of iterative reconstruction technique. COMPARISON: No relevant prior studies available. FINDINGS: Limitations: None. Brain and extra-axial spaces: There is age appropriate cortical atrophy and chronic ischemic periventricular white matter hypodensity. No acute infarct, hemorrhage or mass noted. Bones/joints: No acute changes. Soft tissues: No significant abnormality noted. Vasculature: No acute abnormality noted. Sinuses: Mild chronic right maxillary sinus thickening. There is a 3 to 4 mm retention cyst or polyp in the floor of the left sphenoid sinus. There is mild chronic right frontal sinus thickening. Mastoid air cells: No mastoid effusion. Orbits: No significant abnormality noted. IMPRESSION: 1. Cerebral atrophy. No acute changes. 2. Mild chronic sinus disease. ACT 112: Negative or not required by law. Electronically signed by Sara Vazquez 03-30-2024 2:03 PM Chest X-Ray 03/30/24 12:17 XR chest 1V portable CLINICAL HISTORY: Weakness. Non-small cell lung cancer. COMPARISON STUDY: Chest radiograph April 18, 2023. Chest CT March 01, 2024. FINDINGS: There is no pneumothorax. Lobulated opacity at the medial right lung base corresponds to a right pleural effusion, as shown on prior CT. Postoperative deformity of the right upper chest wall is noted. Findings are better depicted on prior chest CT. Cardiomegaly is unchanged. There is no evidence for pulmonary edema. There is no consolidation to suggest pneumonia. IMPRESSION: 1. No pneumothorax. No consolidation to suggest pneumonia. 2. Postoperative findings within the right mid thorax, including right upper chest wall deformity, better depicted on recent chest CT. 3. Persistent loculated right pleural effusion. ACT 112: Negative or not required by law. Electronically signed by: Jc Gipson M.D. 03/30/2024 1:43 PM Venous Doppler Study 03/30/24 16:42 Exam(s): US VENOUS LEFT LOWER EXTREMITY EXAM: US Duplex Left Lower Extremity Veins CLINICAL HISTORY: Reason for exam: LLE edema. TECHNIQUE: Real-time duplex ultrasound scan of the left lower extremity veins integrating B-mode two-dimensional vascular structure, Doppler spectral analysis, color flow Doppler imaging and compression. COMPARISON: 03/26/2017 FINDINGS: Deep veins: Unremarkable. The visualized deep veins of the left lower extremity are compressible with color flow. No visualized thrombus. Superficial veins: Unremarkable. Soft tissues: Soft tissue edema in the left lower extremity. IMPRESSION: 1. No DVT in the left lower extremity. 2. Soft tissue edema in the left lower extremity. Electronically signed by: Jeff Pemberton MD 03/30/24 21:28 PM Chest X-Ray 03/31/24 07:41 XR chest 2V PA/lateral CLINICAL HISTORY: f/u effusion COMPARISON STUDY: Chest radiograph and chest CT March 30, 2024. FINDINGS: There is no pneumothorax. A loculated right pleural effusion is unchanged. Postoperative findings within the right chest wall with multiple rib resections are again noted. The appearance of the chest is unchanged since prior exam. Cardiomediastinal silhouette is stable. Mild bibasilar opacities favor atelectasis or scarring. There is no consolidation to suggest pneumonia. There is no evidence for pulmonary edema. IMPRESSION: 1. No significant change in appearance of the chest. Stable loculated right pleural effusion. 2. Bibasilar densities which favor atelectasis. ACT 112: Negative or not required by law. Electronically signed by: Jc Gipson M.D. 03/31/2024 9:13 AM I & O Totals 24 Hours 03/30/24 03/31/24 04/01/24 06:59 06:59 06:59 Intake Total 850 / 850 100 / 100 Output Total 500 / 500 Balance 350 / 350 100 / 100 Cumulative 03/30/24 11:36 thru 03/31/24 11:54 Intake Total 950 Output Total 500 Balance 450 RT Ventilator Mngmt (Last Documented) Ventilator Ordered Settings Respiratory Rate 20 03/31/24 07:40 Ventilator - PT Measurements Respiratory Rate 20 PG Care Time/CCT Total # of Minutes Spent Total Time Spent with Patient: Total time spent is greater than 50% in coordination of care (as documented) at patient's floor/unit and/or counseling patient: Coding Level of Care Code 56970 INT INP/OBS CARE 3/75MIN Diagnoses Pleural effusion J90 Chronic obstructive pulmonary disease J44.9
--- NOTE | 2024-03-31 14:07 | XCELERA ---
[id number]
[2024-03-31] MEDS: cefTRIAXone SODIUM 2,000 MG/50 ML BAG IV SCH (16:12)
--- NOTE | 2024-03-31 16:50 | Electrocardiogram Report ---
Test Reason : Blood Pressure : */* mmHG Vent. Rate : 69 BPM Atrial Rate : 69 BPM P-R Int : 118 ms QRS Dur : 124 ms QT Int : 444 ms P-R-T Axes : 24 61 50 degrees QTcB Int : 475 ms Normal sinus rhythm Right bundle branch block Abnormal ECG When compared with ECG of 30-Mar-2024 11:52, No significant change was found Confirmed by Kevin Felix ([id number]) on 03/31/2024 4:50:33 PM Referred By: REFERRED SELF Confirmed By: Kevin Felix
--- NOTE | 2024-03-31 19:04 | Ultrasound Report ---
EXAM: US Duplex Bilateral Extracranial Arteries INDICATION: History of stenosis. Dizziness. TECHNIQUE: Real-time duplex ultrasound scan of the extracranial arteries integrating B-mode two-dimensional vascular structure, Doppler spectral analysis and color flow Doppler imaging. COMPARISON: No relevant prior studies available. FINDINGS: Right common carotid artery: Peak systolic velocity 79 cm/s. Distal intimal thickening and smooth plaque. No occlusion or segmental stenosis on color flow and spectral Doppler imaging. Right internal carotid artery: Peak systolic velocity 215 cm/s there is diffuse. Irregular, mixed plaque. No occlusion or segmental stenosis on color flow and spectral Doppler imaging. Right external carotid artery: No abnormality noted. No occlusion or segmental stenosis on color flow and spectral Doppler imaging. Right vertebral artery: No abnormality noted. Antegrade flow. Right ICA/CCA ratio: 3.0. Left common carotid artery: Peak systolic velocity 79 cm/s. Distal mixed plaque with some focal prominent calcific shadowing. No occlusion or segmental stenosis on color flow and spectral Doppler imaging. Left internal carotid artery: Peak systolic velocity 93 cm/s. There is moderate mixed plaque in the bulb. Lesser amounts of mixed plaque identified throughout the remaining artery. No occlusion or segmental stenosis on color flow and spectral Doppler imaging. Left external carotid artery: No abnormality noted. No occlusion or segmental stenosis on color flow and spectral Doppler imaging. Left vertebral artery: No abnormality noted. Antegrade flow. Left ICA/CCA ratio: No abnormality noted. Within normal limits. Lymph nodes: No abnormality noted. No lymphadenopathy. CAROTID STENOSIS REFERENCE USING SRU CRITERIA: Mild - <50% stenosis. ICA PSV is less than 125 cm/second and plaque or intimal thickening is visible. Moderate - 50-69% stenosis. ICA PSV is 125 to 230 cm/second and plaque is visible. Severe - 70-94% stenosis. ICA PSV is more than 230 cm/second and visible plaque with lumen narrowing is seen. Near occlusion - 95-99% stenosis. ICA PSV is variable and significant plaque with luminal narrowing is seen. Occluded - 100% stenosis. No flow identified. IMPRESSION: 1. 50 to 69% right proximal ICA stenosis. 2. Diffuse mixed plaque throughout the left carotid system with less than 50% stenosis. ACT 112: Negative or not required by law. Electronically signed by Sara Vazquez 03-31-2024 7:03 PM
[2024-04-01] MEDS: MELATONIN 3 MG TAB PO PRN (01:40)
[2024-04-01 06:34] LABS: Albumin Level 3.1 gm/dl (3.4-5.0); BUN Creatinine Ratio 22.2 (10-20); Bilirubin Direct 0.2 mg/dl (0-0.2); Bilirubin,Total 1.1 mg/dl (0.2-1.0); Calcium 7.9 mg/dl (8.6-10.3); Creatinine Clr Calc Pharmacy 74.8 ml/min; Magnesium 1.5 mg/dl (1.7-2.4); Potassium 3.5 mmol/L (3.5-5.1); Total Protein 5.2 gm/dl (6.0-8.3)
[2024-04-01 07:01] LABS: Hematocrit (blood only) 32.3 % (42.0-52.0); Mean Corpuscular Hemoglobin 34.8 pg (25.0-34.0); Mean Corpuscular Hgb Conc 34.1 g/dL (32.0-36.0); Mean Corpuscular Volume 102.2 fL (80.0-100.0); Mean Platelet Volume 10.2 fL (9.4-12.4); Platelet Count 88 K/uL (130-400); Platelet Estimate Decreased (Normal); RDW Coefficient of Variation 12.5 % (11.5-14.5); RDW Standard Deviation 47.1 fL (36.4-46.3); Red Blood Count 3.16 M/uL (4.70-6.10); White Blood Count 6.21 K/ul (4.8-10.8)
--- NOTE | 2024-04-01 09:33 | Hospitalist Progress Note ---
Date of Service April 01, 2024 Assessment & Plan (1) Weakness: Plan: Presented with weakness w/ associated falls; No precipitating symptoms but has noted that he sometimes stands up fast and will have dizziness CT head with cerebral atrophy, mild chronic sinus disease CTAP w/ bladder wall thickening CT cervical spine without acute fx/subluxation but noting mod-severe multilevel disease Venous Doppler LLE NEGATIVE for DVT, WBC wnl on admission, afebrile. Lactic 1.1 TSH wnl. 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 Solo outpatient PT/OT recommending rehab placement Plan for IVF, holding diuretics/statin, IV mag replacement, Ceftriaxone for POSSIBLE cellulitis but ?PAD related. Notable to have arterial disease in the past but no noted sx claudication, but could be entertained (2) Hypomagnesemia: Plan: Low at 1.0 on admission, suspect could be contributing to numbness/tingling in extremities - Hold diuretic - Potassium repleted and augmented appropriately - Mag remains low at 1.5, repleted - Continue PO supplementation; consider increasing pending repeat levels (3) Rhabdomyolysis: Plan: Checked CK given swelling as well as RBC on UA but without blood (venous doppler NEG for DVT) and was ELEVATED to 1023 - IVF given - Lipitor 80mg on HOLD - CK improved to 736 Notable 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 ?cause for LFT elevation. ?alcohol use. No RUQ pain but does have some R shoulder discomfort (EKG stable on repeat, does have cervical spine disease but no acute fx or subluxation) Lyme negative Hepatitis panel pending LFTs improving (5) Swelling of left lower extremity: Plan: Question of stasis dermatitis vs cellulitis; H/o PAD - No tenderness to palpation or movement of the extremity on exam - Primary care note (10/01/2023) revealing L>R edema of BLL and mottled discoloration - SCDs bilaterally ordered - Arterial duplex LLE (09/2022)- Short segment visualized LT distal FA, 30 to 49% stenosis of LT distal EIA, remainder of LLE arteries patent - Venous doppler US LLE NEGATIVE Per Dr Rojas, added Ceftriaxone IV given venous Doppler negative for possible cellulitis but ?Rhabdo vs other. Monitor response to tx (did get 1time dose Cefepime in ER on admission) - Continue ceftriaxone for now - ?PAD, consider repeat imaging if not improving w/ above Erythema resolved, swelling remains; per patient's brother swelling appears improved (6) Stage 3b chronic kidney disease: Plan: H/o CKD 2/2 renovascular disease s/p stent placement in LRA (2008), Follows w/ Dr. Sandra Diaz No TONYA on admission, lisinopril continued (unless orthostatic VS positive) Avoid NSAIDs UA w/ RBC but no blood, CK elevation as above and diuretics on HOLD as well as statin and will monitor repeat renal function/orthostatic VS (7) Chronic obstructive pulmonary disease: Plan: H/o per primary care note; Current SOB x 1 day with productive cough however declined increased sputum to myself and was on bedside commode on room air. CT chest as above, hx of lung ca s/p resection and XRT/chemo and follows w/ [facility] consulted -- pleural effusions are chronic in nature. No indication for steroids for COPD currently. Continue theophylline on an as-needed basis. Hypoxemia is stable and chronic. Continue oxygen to keep sats at or above 90%. No acute intervention required currently. O2 as needed, added incentive spirometer. Theophylline prn (8) Coronary artery disease: Plan: S/p stent 2001, follows with Dr. Menjivar - No current symptoms - Takes ASA 81 mg Plan Updated brother at bedside Repleted magnesium Ordered MiraLAX Anxiety- Sertraline, lorazepam prn Dispo: continued inpatient stay, holding statin/diuretic, Ceftriaxone IV for possible cellulitis, and Mag IV replacement in place PT/OT recommending rehab CODE STATUS: Conditional code Admission and Anticipated Discharge Date Admission Date: March 30, 2024 Supervising Physician Co-Signing Physician Notes The patient was not seen by me. The chart was reviewed. Case discussed with MOSHE Browne. Agree with assessment and plan Subjective Patient seen and evaluated at bedside with his brother present. He reports feeling that his left leg is improved compared to yesterday. He also notes back, neck, arm, and hip pain which he states is chronic from arthritis. We discussed that PT is recommending rehab, which he states he is agreeable to. He reports having a good appetite and he slept well. No additional complaints or concerns at this time. Physical Exam Physical Exam: General: No acute distress, nondiaphoretic, well-developed, well-nourished. Skin: Multiple bruises noted on arms bilaterally. 3+ pitting edema in left lower leg. 2+ pitting edema in right lower leg. No erythema or drainage noted on either leg. Cardiac: Regular rate and rhythm without murmurs gallops or rubs. Pulm: Diminished breath sounds at bases but otherwise clear to auscultation bilaterally without wheezing. No respiratory distress. 98% on room air. Abdominal: Soft, nontender, nondistended. Bowel sounds present. Neuro: A&O x3. No focal neurological deficits. Results & Data Results & Data Vital Signs (Past 12 Hours) Vital Signs Temp Pulse Resp BP Pulse Ox O2 Del Method O2 Flow Rate 04/01/24 07:33 98.1 F 70 20 164/92 H 98 Nasal Cannula 2 Laboratory Results Reviewed CBC Reviewed CMP PG Care Time/CCT Total # of Minutes Spent Total Time Spent with Patient: Total time spent is greater than 50% in coordination of care (as documented) at patient's floor/unit and/or counseling patient: Coding Level of Care Code 09671 SUB INP/OBS CARE 3/50MIN Diagnoses Weakness R53.1 Hypomagnesemia E83.42 Rhabdomyolysis M62.82 Elevated LFTs R79.89 Swelling of left lower extremity M79.89 Stage 3b chronic kidney disease N18.32 Chronic obstructive pulmonary disease J44.9 Coronary artery disease I25.10
[2024-04-01] MEDS: MAGNESIUM SULFATE / D5W 1 GM/100 ML BAG IV SCH (10:36)
[2024-04-02] MEDS: oxyCODONE HCL IR 5 MG TAB (IMMEDIATE RELEASE) PO STA (04:32)
[2024-04-02 06:34] LABS: Hematocrit (blood only) 30.3 % (42.0-52.0); Hemoglobin 10.3 g/dl (14.0-18.0); Mean Corpuscular Hemoglobin 34.7 pg (25.0-34.0); Platelet Count 86 K/uL (130-400); RDW Coefficient of Variation 12.7 % (11.5-14.5); RDW Standard Deviation 46.8 fL (36.4-46.3); Red Blood Count 2.97 M/uL (4.70-6.10); White Blood Count 6.33 K/ul (4.8-10.8)
[2024-04-02 06:55] LABS: Albumin Globulin Ratio 1.4 (0.9-2); BUN Creatinine Ratio 21.4 (10-20); Bilirubin,Total 0.8 mg/dl (0.2-1.0); Calcium 8.1 mg/dl (8.6-10.3); Creatinine Clr Calc Pharmacy 61.8 ml/min; Globulin 2.1 gm/dl (2.5-4.0); Magnesium 1.6 mg/dl (1.7-2.4); Potassium 3.5 mmol/L (3.5-5.1); Total Protein 5.1 gm/dl (6.0-8.3)
--- NOTE | 2024-04-02 08:01 | Hospitalist Progress Note ---
Date of Service April 02, 2024 Assessment & Plan (1) Weakness: Plan: Presented with weakness w/ associated falls; No precipitating symptoms but has noted that he sometimes stands up fast and will have dizziness CT head with cerebral atrophy, mild chronic sinus disease CTAP w/ bladder wall thickening CT cervical spine without acute fx/subluxation but noting mod-severe multilevel disease Venous Doppler LLE NEGATIVE for DVT, WBC wnl on admission, afebrile. Lactic 1.1 TSH wnl. EKG w/ RBBB (noted on old EKGs) No CP reported, trop not elevated. 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 IMPROVING, Ceftriaxone IV for cellulitis continued, improved/almost resolved LFTs improving, almost resolved. ?shock liver from low BPs/hypotension? ?recent drinking with elevated LFTs/ passing and low mag w/ alcohol/diuretics for BP could have contributed to above presentation Hepatits panel pending Dehydration improving --DIURETICS on hold w/ triamtrene-HCTZ, BP 139/78 and improved with IVF, now completed. --Monitor to resume in AM but possible just one agent vs combination and would opt for triamterene over HCTZ to prevent hypokalemia/hypomagnesemia given presentation. Mag 1.6 still low, additional 2gm IV to be provided and will increase his PO mag to BID. CK 364, statin remains on HOLD. Also can consider outpt ref to rheum (+RF in 2018 noted) Underlying lumbar radiculopathy with bilateral foot drop - Orthotics consulted for AFO, has in room but not using. Outpt f/u Dr Solo vs inpatient if needed. Will trial gabapentin 100gm PO x 1 for neuropathic/radicular pain Can consider trial of steroids if needed. PT/OT recommending rehab placement , patient agreeable. CM to follow (2) Hypomagnesemia: Plan: 1.0 on admission, has been given repeat IV replacement and REMAINS LOW 1.6 --> additional 2gm IV and INCREASE PO. - Monitor mag w/ AM labs (3) Rhabdomyolysis: Plan: Checked CK given swelling as well as RBC on UA but without blood (venous doppler NEG for DVT) and was ELEVATED to 1023 - IVF given, statin placed on hold CK IMPROVING-->364. Continue to hold Lipitor ?underlying myositis vs rheum condition? Consider outpt f/u referral at [facility] as discussed w/ patient (4) Elevated LFTs: Plan: UA noted blood but no RBC, CK elevated as above. ?alcohol use, shock liver No RUQ pain but does have some R shoulder discomfort (EKG stable on repeat, does have cervical spine disease but no acute fx or subluxation) Lyme negative Hepatitis panel pending LFTs improving and almost resolved. ?recent drinking with elevated LFTs/ passing and low mag w/ alcohol/diuretics for BP could have contributed as above (5) Swelling of left lower extremity: Plan: ? of stasis dermatitis vs cellulitis; H/o PAD - No tenderness to palpation or movement of the extremity on exam - Primary care note (10/01/2023) revealing L>R edema of BLL and mottled discoloration - SCDs bilaterally ordered - Arterial duplex LLE (09/2022)- Short segment visualized LT distal FA, 30 to 49% stenosis of LT distal EIA, remainder of LLE arteries patent - Venous doppler US LLE NEGATIVE Per Dr Rojas, added Ceftriaxone IV given venous Doppler negative for possible cellulitis but ?Rhabdo vs other. Monitor response to tx (did get 1time dose Cefepime in ER on admission) - Continue ceftriaxone for now as above, IMPROVED Erythema resolved, swelling remains; per patient's brother swelling appears improved - ?PAD, consider repeat imaging if not improving w/ above vs outpt cards f/u (6) Stage 3b chronic kidney disease: Plan: H/o CKD 2/2 renovascular disease s/p stent placement in LRA (2008), Follows w/ Dr. Sandra Diaz No TONYA on admission, lisinopril continued (unless orthostatic VS positive) Avoid NSAIDs UA w/ RBC but no blood, CK elevation as above and diuretics on HOLD as well as statin and will monitor repeat renal function/orthostatic VS (7) Chronic obstructive pulmonary disease: Plan: H/o per primary care note; Current SOB x 1 day with productive cough however declined increased sputum to myself and was on bedside commode on room air. CT chest as above, hx of lung ca s/p resection and XRT/chemo and follows w/ [facility] consulted -- pleural effusions are chronic in nature. No indication for steroids for COPD currently. Continue theophylline on an as-needed basis. Hypoxemia is stable and chronic. Continue oxygen to keep sats at or above 90%. No acute intervention required currently. O2 as needed, added incentive spirometer. (he is using for comfort) Theophylline prn (8) Coronary artery disease: Plan: S/p stent 2001, follows with Dr. Menjivar - No current symptoms - Takes ASA 81 mg Plan Updated brother at bedside 04/01 Anxiety- Sertraline, lorazepam prn Dispo: continued inpatient stay, statin remains on hold. Continues Ceftriaxone for cellulitis but can convert to oral in AM. Additional IV mag replacement/increase PO. Trial gabapentin and can consider steroids. PT/OT rec rehab, patient agreeable. CM to follow Admission and Anticipated Discharge Date Admission Date: March 30, 2024 Supervising Physician Co-Signing Physician Notes The patient was not seen by me. The chart was reviewed. Case discussed with MOSHE Lange. Agree with assessment and plan Subjective Eval this morning, sitting up in bed. Feeling better than on admission but still having pain to his legs. CK improving, statin remains on hold. Decent appetite. Discussed re-trial gabapentin for lumbar/radiculopathy pain and trial but cautious use w/ orthostasis but dizziness slightly improved. Mag still low, IV ordered and plan to increase PO. He reports has NOT used AFO braces yet, encouraged. Voiding but small amounts, RN going to bladder scan to ensure not retaining. Discussed possible ref to rheum outpatient following rehab (which he is agreeable to) for further testing given underlying joint pains and prior +RF testing. Questions/concerns addressed a this time. Physical Exam Physical Exam: General: 73yo male sitting up in bed, NAD but reporting some nerve/shooting pains in his legs. HEENT: head atraumatic, normocephalic, mm improved Resp: diminished in the bases, no significant wheezing/rales, no tachypnea/cough, on 2L (for comfort) GI: +BS, soft/NT : no santillan MSK/Neuro: LLE edema worse than the right but IMPROVED, IMPROVEMENT in erythema, pulses present, bilateral foot drop +b/l radiculopathy, R>L Psych: AOx3, cooperative with exam Results & Data Results & Data Vital Signs (Past 12 Hours) Vital Signs Temp Pulse Resp BP Pulse Ox O2 Del Method O2 Flow Rate 04/02/24 06:38 36.6 C 66 18 139/78 100 Nasal Cannula 2 04/01/24 20:00 Nasal Cannula 2 Laboratory Results 04/02/24 Range/Units 05:51 WBC 6.33 (4.8-10.8) K/ul RBC 2.97 L (4.70-6.10) M/uL Hgb 10.3 L (14.0-18.0) g/dl Hct 30.3 L (42.0-52.0) % MCV 102.0 H (80.0-100.0) fL MCH 34.7 H (25.0-34.0) pg MCHC 34.0 (32.0-36.0) g/dL RDW Std Deviation 46.8 H (36.4-46.3) fL RDW Coeff of Daniel 12.7 (11.5-14.5) % Plt Count 86 L (130-400) K/uL MPV 10.0 (9.4-12.4) fL Sodium 139 (136-145) mmol/L Potassium 3.5 (3.5-5.1) mmol/L Chloride 106 (98-107) mmol/L Carbon Dioxide 28 (21-32) mmol/L Anion Gap 5 (3-11) BUN 21 (6-23) mg/dl Creatinine 0.98 (0.6-1.4) mg/dl Est Cr Clr Drug Dosing 61.8 ml/min eGFR 80.92 BUN/Creatinine Ratio 21.4 H (10-20) Glucose 100 H (70-99(Fasting)) mg/dl Calcium 8.1 L (8.6-10.3) mg/dl Magnesium 1.6 L (1.7-2.4) mg/dl Total Bilirubin 0.8 (0.2-1.0) mg/dl AST 43 H (13-39) U/L ALT 39 (7-52) U/L Alkaline Phosphatase 78 (34-104) U/L Total Creatine Kinase 364 H (30-223) U/L Total Protein 5.1 L (6.0-8.3) gm/dl Albumin 3.0 L (3.4-5.0) gm/dl Globulin 2.1 L (2.5-4.0) gm/dl Albumin/Globulin Ratio 1.4 (0.9-2) PG Care Time/CCT Total # of Minutes Spent Total Time Spent with Patient: Total time spent is greater than 50% in coordination of care (as documented) at patient's floor/unit and/or counseling patient: Coding Level of Care Code 97855 SUB INP/OBS CARE 3/50MIN Diagnoses Weakness R53.1 Hypomagnesemia E83.42 Rhabdomyolysis M62.82 Elevated LFTs R79.89 Swelling of left lower extremity M79.89 Stage 3b chronic kidney disease N18.32 Chronic obstructive pulmonary disease J44.9 Coronary artery disease I25.10
[2024-04-02] MEDS: MAGNESIUM SULFATE / D5W 1 GM/100 ML BAG IV SCH (09:35)
[2024-04-02] MEDS: MAGNESIUM OXIDE 400 MG TAB PO SCH (09:38)
--- NOTE | 2024-04-02 10:00 | Communication Note ---
Date of Service: April 02, 2024 Recalled to patients room, having some numbness/tingling in his right arm. NO palpitations, HR stable on dynamap w/ stable BPs, systolic in 120s. Lisin opril being held, metoprolol to be given. RN obtaining EKG, mag is being infused. Further questioning does have a beer a night, does have some shakes when does not get. Will give dose of ativan as well and monitor AWSS. 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 Suspect more alcohol use that reporting and will continue thiamine 500mg IV q8h and monitor. Low threshold to move to monitored bed.
[2024-04-02] MEDS ORDERED: LORazepam 2 MG/1 ML VIAL IV PRN (10:03)
[2024-04-02] MEDS: GABAPENTIN 100 MG CAP PO ONE (10:07)
[2024-04-02] MEDS: POLYETHYLENE (MIRALAX) 17 GM PACK PO PRN (10:07)
[2024-04-02] MEDS: THIAMINE HCL 500 MG in SODIUM CHLORIDE 0.9% 50 ML IV ONE (11:01)
[2024-04-02] MEDS: ACETAMINOPHEN 500 MG TAB PO PRN (17:34)
[2024-04-02] MEDS: THIAMINE HCL 500 MG in SODIUM CHLORIDE 0.9% 50 ML IV SCH (17:34)
[2024-04-02] MEDS: GABAPENTIN 100 MG CAP PO SCH (20:46)
[2024-04-03 06:12] LABS: Hematocrit (blood only) 32.1 % (42.0-52.0); Hemoglobin 10.8 g/dl (14.0-18.0); Mean Corpuscular Hemoglobin 34.5 pg (25.0-34.0); Mean Corpuscular Hgb Conc 33.6 g/dL (32.0-36.0); Mean Corpuscular Volume 102.6 fL (80.0-100.0); Mean Platelet Volume 9.9 fL (9.4-12.4); Platelet Count 100 K/uL (130-400); RDW Coefficient of Variation 12.8 % (11.5-14.5); RDW Standard Deviation 46.8 fL (36.4-46.3); Red Blood Count 3.13 M/uL (4.70-6.10); White Blood Count 6.16 K/ul (4.8-10.8)
[2024-04-03 06:32] LABS: BUN Creatinine Ratio 22.8 (10-20); Bilirubin Direct 0.2 mg/dl (0-0.2); Bilirubin,Total 0.7 mg/dl (0.2-1.0); Calcium 8.5 mg/dl (8.6-10.3); Creatinine Clr Calc Pharmacy 65.9 ml/min; Magnesium 1.6 mg/dl (1.7-2.4); Potassium 3.9 mmol/L (3.5-5.1); Total Protein 5.1 gm/dl (6.0-8.3)
[2024-04-03] MEDS: FOLIC ACID 1 MG TAB PO SCH (08:56)
[2024-04-03] MEDS: THIAMINE HCL 100 MG TAB PO SCH (11:16)
--- NOTE | 2024-04-03 11:25 | Hospitalist Progress Note ---
Date of Service April 03, 2024 Assessment & Plan (1) Weakness: Plan: Multiple studies on admission consistent with age without any significant findings. Continue OT and PT while hospitalized. SNF or rehab placement is pending. (2) Hypomagnesemia: Plan: Magnesium level 1.6 today, April 03. Continue oral replacement. (3) Rhabdomyolysis: Plan: Mild on admission. Improved. (4) Elevated LFTs: Plan: Present on admission. Now improved. Will follow (5) Swelling of left lower extremity: Plan: No evidence of DVT. May simply be chronic venous insufficiency. No overt cellulitis. Rocephin discontinued. (6) Stage 3b chronic kidney disease: Plan: Stable. Monitor intake and output. Serial labs (7) Chronic obstructive pulmonary disease: Plan: Complained of some shortness of breath on admission but no overt pneumonia and no CHF. No PE seen on chest CT scan. Pulmonary consultation and recommendations appreciated. (8) Coronary artery disease: Plan: S/p stent 2001. Stable. Continue current medical management. Plan Awaiting discharge to SNF for IPR. Admission and Anticipated Discharge Date Admission Date: March 30, 2024 Subjective Alert. Stable. Magnesium is slightly low at 1.6 but he remains on oral magnesium replacement. Intravenous thiamine switched to oral dosing. Case management notified that he is medically stable for discharge to SNF for rehab. Intravenous Rocephin has been discontinued. Review of Systems 2 Review of Systems: Constitutionalno fever or chills ENTno blurred vision, no double vision, no epistaxis, no sore throat Respiratoryno cough, no wheezing, no shortness of breath Cardiacno palpitations, no chest pain, no syncope Yves nausea, vomiting, diarrhea, melena, hematochezia GUno urinary retention, no urinary incontinence, no dysuria, no hematuria Musculoskeletalno joint pain, no muscle tenderness Skinno bruising, no rashes, no pruritus Neurono isolated weakness, no paresthesia, no weakness Psychno depression, no anxiety Physical Exam 2 Physical Exam: General-alert and oriented x3, no fever, no chills HEENT-head atraumatic and normocephalic, pupils equal and reactive to light, extraocular muscles intact Neck-no lymphadenopathy or thyromegaly, trachea midline Chest-clear to auscultation. No rales, wheezing or rhonchi Cardiac-regular rate and rhythm, normal S1 and S2 Abdomen-normal bowel sounds, no hepatosplenomegaly Extremities-no cyanosis, clubbing, or edema Neuro-cranial nerves II through XII intact, motor and sensory function within normal limits, strength symmetrical, no focal deficits Psych-normal affect, normal mood Results & Data Results & Data Vital Signs (Past 12 Hours) Vital Signs Temp Pulse Resp BP Pulse Ox O2 Del Method 04/03/24 07:32 Room Air 04/03/24 07:29 37.1 C 77 18 170/84 H 97 Room Air Laboratory Results 04/03/24 05:40 04/03/24 05:40 PG Care Time/CCT Total # of Minutes Spent Total Time Spent with Patient: Total time spent is greater than 50% in coordination of care (as documented) at patient's floor/unit and/or counseling patient: Coding Level of Care Code 41224 SUB INP/OBS CARE 2/35MIN Diagnoses Weakness R53.1 Hypomagnesemia E83.42 Rhabdomyolysis M62.82 Elevated LFTs R79.89 Swelling of left lower extremity M79.89 Stage 3b chronic kidney disease N18.32 Chronic obstructive pulmonary disease J44.9 Coronary artery disease I25.10
[2024-04-03 12:02] LABS: Hepatitis A Antibody IgM NON-REACTIVE (NON-REACTIVE); Hepatitis B Core Antibody IgM NON-REACTIVE (NON-REACTIVE)
[2024-04-04 06:12] LABS: Babesia microti DNA Not Detected (Not Detected)
--- NOTE | 2024-04-04 14:49 | Hospitalist Progress Note ---
Date of Service April 04, 2024 Assessment & Plan (1) Weakness: Plan: Multiple studies on admission consistent with age without any significant findings. Continue OT and PT while hospitalized. SNF or rehab placement is pending. (2) Hypomagnesemia: Plan: Magnesium level 1.6 today, April 03. Continue oral replacement. Will recheck level in a.m., April 05 (3) Rhabdomyolysis: Plan: Mild on admission. Now resolved (4) Elevated LFTs: Plan: Present on admission. Now improved. Will follow (5) Swelling of left lower extremity: Plan: No evidence of DVT. May simply be chronic venous insufficiency. No overt cellulitis. Rocephin discontinued. (6) Stage 3b chronic kidney disease: Plan: Stable. Monitor intake and output. Serial labs (7) Chronic obstructive pulmonary disease: Plan: Complained of some shortness of breath on admission but no overt pneumonia and no CHF. No PE seen on chest CT scan. Pulmonary consultation and recommendations appreciated. (8) Coronary artery disease: Plan: S/p stent 2001. Stable. Continue current medical management. Plan Awaiting discharge to SNF for IPR. Admission and Anticipated Discharge Date Admission Date: March 30, 2024 Subjective Alert and oriented. No new problems. He is asking for a Lidoderm patch for his chronic back pain. Platelet count was low on admission but has improved to 100,000 now. Awaiting rehab placement Review of Systems 2 Review of Systems: Constitutionalno fever or chills ENTno blurred vision, no double vision, no epistaxis, no sore throat Respiratoryno cough, no wheezing, no shortness of breath Cardiacno palpitations, no chest pain, no syncope Yves nausea, vomiting, diarrhea, melena, hematochezia GUno urinary retention, no urinary incontinence, no dysuria, no hematuria Musculoskeletalno joint pain, no muscle tenderness Skinno bruising, no rashes, no pruritus Neurono isolated weakness, no paresthesia, no weakness Psychno depression, no anxiety Physical Exam 2 Physical Exam: General-alert and oriented x3, no fever, no chills HEENT-head atraumatic and normocephalic, pupils equal and reactive to light, extraocular muscles intact Neck-no lymphadenopathy or thyromegaly, trachea midline Chest-clear to auscultation. No rales, wheezing or rhonchi Cardiac-regular rate and rhythm, normal S1 and S2 Abdomen-normal bowel sounds, no hepatosplenomegaly Extremities-no cyanosis, clubbing, or edema Neuro-cranial nerves II through XII intact, motor and sensory function within normal limits, strength symmetrical, no focal deficits Psych-normal affect, normal mood Results & Data Results & Data Vital Signs (Past 12 Hours) Vital Signs Temp Pulse Resp BP Pulse Ox O2 Del Method 04/04/24 10:53 36.8 C 62 18 150/80 H 97 Room Air 04/04/24 07:08 36.7 C 64 16 157/73 H 96 Room Air Laboratory Results 04/03/24 05:40 04/03/24 05:40 PG Care Time/CCT Total # of Minutes Spent Total Time Spent with Patient: Total time spent is greater than 50% in coordination of care (as documented) at patient's floor/unit and/or counseling patient: Coding Level of Care Code 75352 SUB INP/OBS CARE 2/35MIN Diagnoses Weakness R53.1 Hypomagnesemia E83.42 Rhabdomyolysis M62.82 Elevated LFTs R79.89 Swelling of left lower extremity M79.89 Stage 3b chronic kidney disease N18.32 Chronic obstructive pulmonary disease J44.9 Coronary artery disease I25.10
[2024-04-04] MEDS: LIDOCAINE 5% 1 PATCH TD SCH (15:50)
[2024-04-05 07:34] LABS: Basophils # (auto) 0.03 K/uL (0.00-0.20); Basophils % (auto) 0.7 %; Eosinophils # (auto) 0.16 K/uL (0.00-0.50); Hematocrit (blood only) 31.7 % (42.0-52.0); Hemoglobin 10.7 g/dl (14.0-18.0); Immature Granulocytes # (auto) 0.03 K/uL (0.01-0.20); Immature Granulocytes % (auto) 0.7 %; Lymphocytes # (auto) 0.49 K/uL (1.20-3.40); Lymphocytes % (auto) 12.2 %; Mean Corpuscular Hemoglobin 34.7 pg (25.0-34.0); Mean Corpuscular Hgb Conc 33.8 g/dL (32.0-36.0); Mean Corpuscular Volume 102.9 fL (80.0-100.0); Mean Platelet Volume 10.5 fL (9.4-12.4); Monocytes # (auto) 0.56 K/uL (0.11-0.59); Monocytes % (auto) 13.9 %; Neutrophils # (auto) 2.76 K/uL (1.40-6.50); Neutrophils % (auto) 68.5 %; Platelet Count 129 K/uL (130-400); RDW Coefficient of Variation 13.2 % (11.5-14.5); RDW Standard Deviation 49.3 fL (36.4-46.3); Red Blood Count 3.08 M/uL (4.70-6.10); White Blood Count 4.03 K/ul (4.8-10.8)
[2024-04-05 07:51] LABS: Albumin Globulin Ratio 1.3 (0.9-2); Albumin Level 3.1 gm/dl (3.4-5.0); BUN Creatinine Ratio 27.4 (10-20); Bilirubin,Total 0.7 mg/dl (0.2-1.0); Calcium 8.8 mg/dl (8.6-10.3); Creatinine Clr Calc Pharmacy 63.8 ml/min; Globulin 2.3 gm/dl (2.5-4.0); Magnesium 1.4 mg/dl (1.7-2.4); Potassium 3.6 mmol/L (3.5-5.1); Total Protein 5.4 gm/dl (6.0-8.3)
[2024-04-05 09:00] LABS: Hep B Surface Ag with confirm Negative (Negative)
[2024-04-05 09:05] LABS: Hep C Ab Rflx HepCQuant RNA Negative (Negative)
[2024-04-05] MEDS: MAGNESIUM SULFATE / D5W 1 GM/100 ML BAG IV SCH (12:04)
--- NOTE | 2024-04-05 15:59 | Hospitalist Progress Note ---
Date of Service April 05, 2024 Assessment & Plan (1) Weakness: Plan: Likely 2/2 severe hypomagnesemia from poor po intake since . Also on HCTZ which can deplete mag Multiple studies on admission consistent with age without any significant findings. Continue OT and PT while hospitalized. SNF or rehab placement is pending. Improving Continue rehab (2) Hypomagnesemia: Plan: Severely low on admission at 1.0, continues to be replaced and is still low today at 1.4 Give IV magnesium replacement x 2 g Follow level in the morning (3) Lumbar radiculopathy: Plan: Ongoing chronic problem, history of lumbar spine surgery With pain radiating down through both hips to the knees Increase gabapentin to 100 mg in the morning and afternoon and 200 mg at bedtime Try to reduce amount of oxycodone he has been taking (4) Rhabdomyolysis: Plan: Mild on admission secondary to being down on the ground for several hours. Now resolved with CK down to 224 (5) Anemia: Plan: Hemoglobin mildly low at 10.7, MCV elevated at 102 B12 level here is normal Check folate, iron studies in the morning (6) Thrombocytopenia: Plan: Platelets somewhat chronically low at least for the last year, B12 level normal Anaplasmosis and babesiosis smears are negative, babesiosis PCR negative This is likely a chronic issue and not an acute issue Review of previous CT abdomen/pelvis shows fatty liver but no splenomegaly. He was previously a heavier drinker but reportedly has recently stopped drinking Could be related to previous alcohol use Given macrocytosis, could have MDS-needs ongoing follow-up as an outpatient (7) Elevated LFTs: Plan: Present on admission. Likely secondary to rhabdomyolysis but also has fatty liver-now improved (8) Swelling of left lower extremity: Plan: No evidence of DVT. Likely chronic venous insufficiency. No overt cellulitis. Rocephin that was started on admission has since been discontinued. also has had inguinal hernia surgery-perhaps lymphedema Plan Chronic medical problems: Anxiety/Insomnia-continue lorazepam as needed at bedtime HTN-blood pressures are mildly elevated-continue lisinopril, metoprolol. Triamterene HCTZ on hold CAD-S/p stent 2001. Stable. Continue ASA, statin, metoprolol COPD-Complained of some shortness of breath on admission but no overt pneumonia and no CHF. No PE seen on chest CT scan but has chronic pleural effusion pulmonary consultation and recommendations appreciated-pulmonary says no need for sampling and does not need antibiotics. with pleural effusion, h/o Pancoast tumor removed. Continue theophylline as needed Follow-up with outpatient pulmonology after discharge CKD Stage III-Stable. Monitor intake and output. Serial labs DVT prophylaxis-SCDs, add Lovenox Disposition-medically stable for discharge after magnesium replaced, peer to peer completed and denied for acute rehab. Awaiting placement at SNF Admission and Anticipated Discharge Date Admission Date: March 30, 2024 Subjective Patient feels stronger than before, has some pain in his back and hips radiating down to the knees which is chronic. He is worried about difficulty with insomnia which seems to be a chronic issue but more related to pain from his lumbar radiculopathy. He reports that he has not been eating much since his less than a month ago Physical Exam Constitutional: WD/WN, vitals as above Respiratory: normal respiratory effort, lungs clear to auscultation Cardiovascular: Rate/Rhythm: regular rate and regular rhythm Heart Sounds: no murmur Extremities: + edema (Left leg with 1+ edema, chronic venous stasis changes) Gastrointestinal (Abdomen): normal bowel sounds, soft, nontender, no hepatosplenomegaly Psychiatric: A+Ox3, euthymic affect Results & Data Results & Data Vital Signs (Past 12 Hours) Vital Signs Temp Pulse Resp BP Pulse Ox O2 Del Method 04/05/24 14:55 37.0 C 76 20 110/63 97 Room Air 04/05/24 08:00 36.8 C 58 L 17 146/79 H 98 Room Air 04/05/24 07:15 Room Air Laboratory Results CBC, BMP, CK, LFTs, magnesium level reviewed PG Care Time/CCT Total # of Minutes Spent Total Time Spent with Patient: Total time spent is greater than 50% in coordination of care (as documented) at patient's floor/unit and/or counseling patient: Coding Level of Care Code 95005 SUB INP/OBS CARE 2/35MIN Diagnoses Weakness R53.1 Hypomagnesemia E83.42 Lumbar radiculopathy M54.16 Rhabdomyolysis M62.82 Anemia D64.9 Thrombocytopenia D69.6 Elevated LFTs R79.89 Swelling of left lower extremity M79.89
[2024-04-05] MEDS: GABAPENTIN 100 MG CAP PO SCH ×3 (16:37→19:58)
[2024-04-05] MEDS: DOCUSATE SODIUM/SENNA 50/8.6MG TAB PO SCH (16:55)
[2024-04-05] MEDS: POLYETHYLENE (MIRALAX) 17 GM PACK PO SCH (16:56)
[2024-04-06 09:02] LABS: BUN Creatinine Ratio 28.9 (10-20); Calcium 9.2 mg/dl (8.6-10.3); Creatinine Clr Calc Pharmacy 62.5 ml/min; Magnesium 1.7 mg/dl (1.7-2.4); Potassium 4.3 mmol/L (3.5-5.1)
[2024-04-06 09:21] LABS: Ferritin 473.1 ng/ml (8-388)
[2024-04-06 09:28] LABS: Basophils # (auto) 0.02 K/uL (0.00-0.20); Basophils % (auto) 0.5 %; Eosinophils # (auto) 0.19 K/uL (0.00-0.50); Eosinophils % (auto) 4.9 %; Hematocrit (blood only) 34.9 % (42.0-52.0); Hemoglobin 11.6 g/dl (14.0-18.0); Immature Granulocytes # (auto) 0.03 K/uL (0.01-0.20); Immature Granulocytes % (auto) 0.8 %; Lymphocytes # (auto) 0.43 K/uL (1.20-3.40); Mean Corpuscular Hemoglobin 34.6 pg (25.0-34.0); Mean Corpuscular Hgb Conc 33.2 g/dL (32.0-36.0); Mean Corpuscular Volume 104.2 fL (80.0-100.0); Mean Platelet Volume 9.8 fL (9.4-12.4); Monocytes # (auto) 0.63 K/uL (0.11-0.59); Monocytes % (auto) 16.2 %; Neutrophils % (auto) 66.6 %; Platelet Count 162 K/uL (130-400); RDW Coefficient of Variation 13.2 % (11.5-14.5); RDW Standard Deviation 50.5 fL (36.4-46.3); Red Blood Count 3.35 M/uL (4.70-6.10)
[2024-04-06] MEDS: ENOXAPARIN INJ 40 MG/0.4 ML SYR SQ SCH (10:53)
--- NOTE | 2024-04-06 12:52 | Electrocardiogram Report ---
Test Reason : Blood Pressure : */* mmHG Vent. Rate : 75 BPM Atrial Rate : 75 BPM P-R Int : 136 ms QRS Dur : 132 ms QT Int : 412 ms P-R-T Axes : 37 60 47 degrees QTcB Int : 460 ms Normal sinus rhythm Right bundle branch block Abnormal ECG When compared with ECG of 31-Mar-2024 10:12, No significant change was found Confirmed by Derek Menjivar ([id number]) on 04/06/2024 12:51:47 PM Referred By: REFERRED SELF Confirmed By: Derek Menjivar
--- NOTE | 2024-04-06 15:52 | Hospitalist Progress Note ---
Date of Service April 06, 2024 Assessment & Plan (1) Weakness: Plan: Likely 2/2 severe hypomagnesemia from poor po intake since . Also on HCTZ which can deplete mag Multiple studies on admission to include carotid dopplers, CHest CT, C-spine CT, CT A/P, CT head, CXR, Venous doppler LLE all consistent with age without any significant findings. Continue OT and PT while hospitalized. SNF placement is pending. Improving (2) Hypomagnesemia: Plan: Severely low on admission at 1.0, replaced frequently and finally is now in normal range Follow Mag level periodically but po intake has improved and holding HCTZ which is also contributing (3) Lumbar radiculopathy: Plan: Ongoing chronic problem, history of lumbar spine surgery With pain radiating down through both hips to the knees Increased gabapentin to 100 mg in the morning and afternoon and 200 mg at bedtime-seems to be helping-has not taken any prn oxycodone all day Try to reduce amount of oxycodone he has been taking-weaning off (4) Rhabdomyolysis: Plan: Mild on admission secondary to being down on the ground for several hours. Now resolved with CK down to 224 (5) Anemia: Plan: Hemoglobin mildly low at 10.7-11, MCV elevated at 102 B12 level and folate level here are normal Iron studies normal F/u as outpt with Heme as could have MDS (6) Thrombocytopenia: Plan: Platelets somewhat chronically low at least for the last year, B12 level normal Anaplasmosis and babesiosis smears are negative, babesiosis PCR negative This is likely a chronic issue and not an acute issue Review of previous CT abdomen/pelvis shows fatty liver but no splenomegaly. He was previously a heavier drinker but reportedly has recently stopped drinking Could be related to previous alcohol use Platelets now normal at 162 Given macrocytosis, could have MDS-needs ongoing follow-up as an outpatient (7) Elevated LFTs: Plan: Present on admission. Likely secondary to rhabdomyolysis but also has fatty liver-now improved (8) Swelling of left lower extremity: Plan: No evidence of DVT. Likely chronic venous insufficiency. No overt cellulitis. Rocephin that was started on admission has since been discontinued. also has had inguinal hernia surgery-perhaps lymphedema Plan Chronic medical problems: Anxiety/Insomnia-continue lorazepam as needed at bedtime HTN-blood pressures arecontrolled-continue lisinopril, metoprolol. Triamterene HCTZ on hold CAD-S/p stent 2001. Stable. Continue ASA, statin, metoprolol COPD-Complained of some shortness of breath on admission but no overt pneumonia and no CHF. No PE seen on chest CT scan but has chronic pleural effusion pulmonary consultation and recommendations appreciated-pulmonary says no need for sampling and does not need antibiotics. with pleural effusion, h/o Pancoast tumor removed. Continue theophylline as needed Follow-up with outpatient pulmonology after discharge CKD Stage III-Stable. Monitor intake and output. Serial labs DVT prophylaxis-SCDs, SQ Lovenox Disposition-medically stable for discharge, peer to peer completed and denied for acute rehab. Awaiting placement at [facility]-awaiting bed availability at [facility] Care Discussed care with brother at bedside on 04/06 Admission and Anticipated Discharge Date Admission Date: March 30, 2024 Subjective No complaints, feels stronger Physical Exam Constitutional: WD/WN, vitals as above Respiratory: normal respiratory effort, lungs clear to auscultation Cardiovascular: Rate/Rhythm: regular rate and regular rhythm Heart Sounds: no murmur Extremities: + edema (Left leg with 1+ edema, chronic venous stasis changes) Gastrointestinal (Abdomen): normal bowel sounds, soft, nontender, no hepatosplenomegaly Psychiatric: A+Ox3, euthymic affect Results & Data Results & Data Vital Signs (Past 12 Hours) Vital Signs Temp Pulse Resp BP Pulse Ox O2 Del Method 04/06/24 15:06 36.8 C 66 14 109/61 99 Room Air 04/06/24 09:13 Room Air 04/06/24 07:32 36.6 C 57 L 17 143/78 H 97 Room Air Laboratory Results CBC, BMP, magnesium, Fe studies, folate reviewed PG Care Time/CCT Total # of Minutes Spent Total Time Spent with Patient: Total time spent is greater than 50% in coordination of care (as documented) at patient's floor/unit and/or counseling patient: Coding Level of Care Code 80951 SUB INP/OBS CARE 1/25MIN Diagnoses Weakness R53.1 Hypomagnesemia E83.42 Lumbar radiculopathy M54.16 Rhabdomyolysis M62.82 Anemia D64.9 Thrombocytopenia D69.6 Elevated LFTs R79.89 Swelling of left lower extremity M79.89
--- NOTE | 2024-04-07 15:28 | Hospitalist Progress Note ---
Date of Service April 07, 2024 Assessment & Plan (1) Weakness: Plan: Likely 2/2 severe hypomagnesemia from poor po intake since . Also on HCTZ which can deplete mag Multiple studies on admission to include carotid dopplers, CHest CT, C-spine CT, CT A/P, CT head, CXR, Venous doppler LLE all consistent with age without any significant findings. Continue OT and PT while hospitalized. SNF placement is pending. Improving (2) Hypomagnesemia: Plan: Severely low on admission at 1.0, replaced frequently and finally is now in normal range Follow Mag level periodically but po intake has improved and holding HCTZ which is also contributing (3) Lumbar radiculopathy: Plan: Ongoing chronic problem, history of lumbar spine surgery With pain radiating down through both hips to the knees and feet Pain in feet now much better and pain in hips and thighs somewhat better with starting gabapentin Increase gabapentin again to 200 mg in the morning and afternoon and 300 mg at bedtime prn oxycodone for breakthrough pain but trying to use sparingly Try to reduce amount of oxycodone he has been taking-weaning off (4) Rhabdomyolysis: Plan: Mild on admission secondary to being down on the ground for several hours. Now resolved with CK down to 224 (5) Anemia: Plan: Hemoglobin mildly low at 10.7-11, MCV elevated at 102 B12 level and folate level here are normal Iron studies normal F/u as outpt with Heme as could have MDS (6) Thrombocytopenia: Plan: Platelets somewhat chronically low at least for the last year, B12 level normal Anaplasmosis and babesiosis smears are negative, babesiosis PCR negative This is likely a chronic issue and not an acute issue Review of previous CT abdomen/pelvis shows fatty liver but no splenomegaly. He was previously a heavier drinker but reportedly has recently stopped drinking Could be related to previous alcohol use Platelets now normal at 162 Given macrocytosis, could have MDS-needs ongoing follow-up as an outpatient (7) Elevated LFTs: Plan: Present on admission. Likely secondary to rhabdomyolysis but also has fatty liver-now improved (8) Swelling of left lower extremity: Plan: No evidence of DVT. Likely chronic venous insufficiency. No overt cellulitis. Rocephin that was started on admission has since been discontinued. also has had inguinal hernia surgery-perhaps lymphedema Plan Chronic medical problems: Anxiety/Insomnia-continue lorazepam as needed at bedtime HTN-blood pressures arecontrolled-continue lisinopril, metoprolol. Triamterene HCTZ on hold CAD-S/p stent 2001. Stable. Continue ASA, statin, metoprolol COPD-Complained of some shortness of breath on admission but no overt pneumonia and no CHF. No PE seen on chest CT scan but has chronic pleural effusion pulmonary consultation and recommendations appreciated-pulmonary says no need for sampling and does not need antibiotics. with pleural effusion, h/o Pancoast tumor removed. Continue theophylline as needed Follow-up with outpatient pulmonology after discharge CKD Stage III-Stable. Monitor intake and output. Serial labs DVT prophylaxis-SCDs, SQ Lovenox Disposition-medically stable for discharge, peer to peer completed and denied for acute rehab. Awaiting placement at SNF-awaiting bed availability at [facility] Care Discussed care with brother at bedside on 04/06 Admission and Anticipated Discharge Date Admission Date: March 30, 2024 Subjective Pt reports pain in back and hips and thighs is better since starting gabapentin. Pain in feet is much improved. Still wants to take oxycodone prn at nighttime for pain preventing him from sleeping Physical Exam Constitutional: WD/WN, vitals as above Respiratory: normal respiratory effort, lungs clear to auscultation Cardiovascular: Rate/Rhythm: regular rate and regular rhythm Heart Sounds: no murmur Extremities: + edema (Left leg with 1+ edema, chronic venous stasis changes) Gastrointestinal (Abdomen): normal bowel sounds, soft, nontender, no hepatosplenomegaly Psychiatric: A+Ox3, euthymic affect Results & Data Results & Data Vital Signs (Past 12 Hours) Vital Signs Temp Pulse Resp BP Pulse Ox O2 Del Method 04/07/24 08:00 Room Air 04/07/24 07:53 36.5 C 51 L 18 127/71 98 Room Air PG Care Time/CCT Total # of Minutes Spent Total Time Spent with Patient: Total time spent is greater than 50% in coordination of care (as documented) at patient's floor/unit and/or counseling patient: Coding Level of Care Code 87365 SUB INP/OBS CARE 1/25MIN Diagnoses Weakness R53.1 Hypomagnesemia E83.42 Lumbar radiculopathy M54.16 Rhabdomyolysis M62.82 Anemia D64.9 Thrombocytopenia D69.6 Elevated LFTs R79.89 Swelling of left lower extremity M79.89
[2024-04-07] MEDS: GABAPENTIN 300 MG CAP PO SCH (21:49)
[2024-04-08] MEDS: GABAPENTIN 100 MG CAP PO SCH (08:01)
--- NOTE | 2024-04-08 18:44 | Hospitalist Progress Note ---
Date of Service April 08, 2024 Assessment & Plan (1) Weakness: Plan: Likely 2/2 severe hypomagnesemia from poor po intake since . Also on HCTZ which can deplete mag Multiple studies on admission to include carotid dopplers, CHest CT, C-spine CT, CT A/P, CT head, CXR, Venous doppler LLE all consistent with age without any significant findings. Continue OT and PT while hospitalized. SNF placement is pending. Improving (2) Hypomagnesemia: Plan: Severely low on admission at 1.0, replaced frequently and finally is now in normal range Follow Mag level periodically but po intake has improved and holding HCTZ which is also contributing (3) Lumbar radiculopathy: Plan: Ongoing chronic problem, history of lumbar spine surgery With pain radiating down through both hips to the knees and feet Pain in feet now much better and pain in hips and thighs somewhat better with starting gabapentin Titrating gabapentin upward-currently at 200 mg in the morning and afternoon and 300 mg at bedtime prn oxycodone for breakthrough pain but trying to use sparingly (4) Rhabdomyolysis: Plan: Mild on admission secondary to being down on the ground for several hours. Now resolved with CK down to 224 (5) Anemia: Plan: Hemoglobin mildly low at 10.7-11, MCV elevated at 102 B12 level and folate level here are normal Iron studies normal F/u as outpt with Heme as could have MDS (6) Thrombocytopenia: Plan: Platelets somewhat chronically low at least for the last year, B12 level normal Anaplasmosis and babesiosis smears are negative, babesiosis PCR negative This is likely a chronic issue and not an acute issue Review of previous CT abdomen/pelvis shows fatty liver but no splenomegaly. He was previously a heavier drinker but reportedly has recently stopped drinking Could be related to previous alcohol use Platelets now normal at 162 Given macrocytosis, could have MDS-needs ongoing follow-up as an outpatient (7) Elevated LFTs: Plan: Present on admission. Likely secondary to rhabdomyolysis but also has fatty liver-now improved (8) Swelling of left lower extremity: Plan: No evidence of DVT. Likely chronic venous insufficiency. No overt cellulitis. Rocephin that was started on admission has since been discontinued. also has had inguinal hernia surgery-perhaps lymphedema Plan Chronic medical problems: Anxiety/Insomnia-continue lorazepam as needed at bedtime HTN-blood pressures arecontrolled-continue lisinopril, metoprolol. Triamterene HCTZ on hold CAD-S/p stent 2001. Stable. Continue ASA, statin, metoprolol COPD-Complained of some shortness of breath on admission but no overt pneumonia and no CHF. No PE seen on chest CT scan but has chronic pleural effusion pulmonary consultation and recommendations appreciated-pulmonary says no need for sampling and does not need antibiotics. with pleural effusion, h/o Pancoast tumor removed. Continue theophylline as needed Follow-up with outpatient pulmonology after discharge CKD Stage III-Stable. Monitor intake and output. Serial labs DVT prophylaxis-SCDs, SQ Lovenox Disposition-medically stable for discharge, peer to peer completed and denied for acute rehab. Awaiting placement at [facility]-awaiting bed availability at [facility] Care Discussed care with brother at bedside on 04/06 Admission and Anticipated Discharge Date Admission Date: March 30, 2024 Subjective Pt reports pain is better controlled in his hips and back at night, but still requesting oxycodone at bedtime Physical Exam Constitutional: WD/WN, vitals as above Respiratory: normal respiratory effort, lungs clear to auscultation Cardiovascular: Rate/Rhythm: regular rate and regular rhythm Heart Sounds: no murmur Extremities: + edema (Left leg with 1+ edema, chronic venous stasis changes) Gastrointestinal (Abdomen): normal bowel sounds, soft, nontender, no hepatosplenomegaly Psychiatric: A+Ox3, euthymic affect Results & Data Results & Data Vital Signs (Past 12 Hours) Vital Signs Temp Pulse Resp BP Pulse Ox O2 Del Method 04/08/24 15:10 36.8 C 89 18 95/57 L 98 Room Air 04/08/24 08:10 Room Air 04/08/24 07:23 36.6 C 59 L 16 105/65 99 Room Air PG Care Time/CCT Total # of Minutes Spent Total Time Spent with Patient: Total time spent is greater than 50% in coordination of care (as documented) at patient's floor/unit and/or counseling patient: Coding Level of Care Code 00402 SUB INP/OBS CARE 25MIN Diagnoses Weakness R53.1 Hypomagnesemia E83.42 Lumbar radiculopathy M54.16 Rhabdomyolysis M62.82 Anemia D64.9 Thrombocytopenia D69.6 Elevated LFTs R79.89 Swelling of left lower extremity M79.89
[2024-04-09 07:42] LABS: Basophils # (auto) 0.04 K/uL (0.00-0.20); Eosinophils # (auto) 0.17 K/uL (0.00-0.50); Eosinophils % (auto) 4.5 %; Hematocrit (blood only) 31.4 % (42.0-52.0); Hemoglobin 10.4 g/dl (14.0-18.0); Immature Granulocytes # (auto) 0.02 K/uL (0.01-0.20); Immature Granulocytes % (auto) 0.5 %; Lymphocytes # (auto) 0.56 K/uL (1.20-3.40); Lymphocytes % (auto) 14.7 %; Mean Corpuscular Hemoglobin 34.4 pg (25.0-34.0); Mean Corpuscular Hgb Conc 33.1 g/dL (32.0-36.0); Mean Platelet Volume 10.4 fL (9.4-12.4); Monocytes # (auto) 0.74 K/uL (0.11-0.59); Monocytes % (auto) 19.4 %; Neutrophils # (auto) 2.29 K/uL (1.40-6.50); Neutrophils % (auto) 59.9 %; Platelet Count 179 K/uL (130-400); RDW Coefficient of Variation 13.2 % (11.5-14.5); RDW Standard Deviation 50.1 fL (36.4-46.3); Red Blood Count 3.02 M/uL (4.70-6.10); White Blood Count 3.82 K/ul (4.8-10.8)
[2024-04-09 09:47] LABS: BUN Creatinine Ratio 33.3 (10-20); Creatinine Clr Calc Pharmacy 50.5 ml/min; Magnesium 1.5 mg/dl (1.7-2.4); Potassium 4.1 mmol/L (3.5-5.1)
[2024-04-09] MEDS: MAGNESIUM SULFATE / D5W 1 GM/100 ML BAG IV ONE (10:53)
--- NOTE | 2024-04-09 16:40 | Hospitalist Progress Note ---
Date of Service April 09, 2024 Assessment & Plan (1) Weakness: Plan: Likely 2/2 severe hypomagnesemia from poor po intake since . Also on HCTZ which can deplete mag Furthermore, chronic PPI use can cause hypomagnesemia Multiple studies on admission to include carotid dopplers, Chest CT, C-spine CT, CT A/P, CT head, CXR, Venous doppler LLE all consistent with age without any significant findings. Continue OT and PT while hospitalized. SNF placement is pending. Improving (2) Hypomagnesemia: Plan: Severely low on admission at 1.0, replaced frequently and low again now despite oral replacement Discontinue PPI. Can use famotidine as needed if develops heartburn Follow Mag level again in the morning Continue magnesium 400 mg p.o. twice daily and give 1 g IV magnesium today Continue to hold HCTZ (3) Lumbar radiculopathy: Plan: Ongoing chronic problem, history of lumbar spine surgery With pain radiating down through both hips to the knees and feet Pain in feet now much better and pain in hips and thighs somewhat better with starting gabapentin Titrating gabapentin upward-will increase further to 300 mg in the morning and afternoon and 600 mg at bedtime-dose change on 04/10 Continue prn oxycodone for breakthrough pain but trying to use sparingly (4) Rhabdomyolysis: Plan: Mild on admission secondary to being down on the ground for several hours. Now resolved with CK down to 224 (5) Anemia: Plan: Hemoglobin mildly low at 10.7-11, MCV elevated at 102 B12 level and folate level here are normal Iron studies normal F/u as outpt with Heme as could have MDS (6) Thrombocytopenia: Plan: Platelets somewhat chronically low at least for the last year, B12 level normal Anaplasmosis and babesiosis smears are negative, babesiosis PCR negative This is likely a chronic issue and not an acute issue Review of previous CT abdomen/pelvis shows fatty liver but no splenomegaly. He was previously a heavier drinker but reportedly has recently stopped drinking Could be related to previous alcohol use Platelets now normal Given macrocytosis, could have MDS-needs ongoing follow-up as an outpatient (7) Elevated LFTs: Plan: Present on admission. Likely secondary to rhabdomyolysis but also has fatty liver-now improved (8) Swelling of left lower extremity: Plan: No evidence of DVT. Likely chronic venous insufficiency. No overt cellulitis. Rocephin that was started on admission has since been discontinued. also has had inguinal hernia surgery-perhaps lymphedema Plan Chronic medical problems: Anxiety/Insomnia-continue lorazepam as needed at bedtime HTN-blood pressures are controlled-continue lisinopril, metoprolol. Triamterene HCTZ on hold and would not likely restart given severe hypomagnesemia CAD-S/p stent 2001. Stable. Continue ASA, statin, metoprolol COPD-Complained of some shortness of breath on admission but no overt pneumonia and no CHF. No PE seen on chest CT scan but has chronic pleural effusion pulmonary consultation and recommendations appreciated-pulmonary says no need for sampling and does not need antibiotics. With pleural effusion, h/o Pancoast tumor removed. Continue theophylline as needed Follow-up with outpatient pulmonology after discharge CKD Stage III-Stable. Monitor intake and output. Serial labs DVT prophylaxis-SCDs, SQ Lovenox Disposition-medically stable for discharge, peer to peer completed and denied for acute rehab. Awaiting placement at SNF-awaiting bed availability at [facility] Care on Friday Discussed care with brother at bedside on 04/06 and again on 04/09 Admission and Anticipated Discharge Date Admission Date: March 30, 2024 Anticipated date of discharge: 04/12/24 Subjective Patient denies any problems. Reports his neuropathy pain in the feet is resolved. Still having pain in the hips and back at nighttime requiring oxycodone and wants to make sure he can continue getting this. We decided to increase the dose of the gabapentin further and try to not take the oxycodone Physical Exam Constitutional: WD/WN, vitals as above Respiratory: normal respiratory effort, lungs clear to auscultation Cardiovascular: Rate/Rhythm: regular rate and regular rhythm Heart Sounds: no murmur Extremities: + edema (Left leg with 1+ edema, chronic venous stasis changes) Gastrointestinal (Abdomen): normal bowel sounds, soft, nontender, no hepatosplenomegaly Psychiatric: A+Ox3, euthymic affect Results & Data Results & Data Vital Signs (Past 12 Hours) Vital Signs Temp Pulse Resp BP Pulse Ox O2 Del Method 04/09/24 16:32 36.7 C 72 16 96/54 L 97 Room Air 04/09/24 07:08 36.4 C L 53 L 16 117/74 97 Room Air Laboratory Results CBC, BMP, magnesium reviewed PG Care Time/CCT Total # of Minutes Spent Total Time Spent with Patient: Total time spent is greater than 50% in coordination of care (as documented) at patient's floor/unit and/or counseling patient: Coding Level of Care Code 50370 SUB INP/OBS CARE 2/35MIN Diagnoses Weakness R53.1 Hypomagnesemia E83.42 Lumbar radiculopathy M54.16 Rhabdomyolysis M62.82 Anemia D64.9 Thrombocytopenia D69.6 Elevated LFTs R79.89 Swelling of left lower extremity M79.89
[2024-04-09] MEDS: SODIUM CHLORIDE 0.9% 250 ML IV ONE (19:10)
[2024-04-09] MEDS: GABAPENTIN 300 MG CAP PO SCH (20:10)
[2024-04-10 07:13] LABS: Basophils # (auto) 0.03 K/uL (0.00-0.20); Basophils % (auto) 0.7 %; Eosinophils # (auto) 0.19 K/uL (0.00-0.50); Eosinophils % (auto) 4.6 %; Hematocrit (blood only) 32.1 % (42.0-52.0); Hemoglobin 10.5 g/dl (14.0-18.0); Immature Granulocytes # (auto) 0.02 K/uL (0.01-0.20); Immature Granulocytes % (auto) 0.5 %; Lymphocytes # (auto) 0.45 K/uL (1.20-3.40); Lymphocytes % (auto) 10.9 %; Mean Corpuscular Hemoglobin 34.1 pg (25.0-34.0); Mean Corpuscular Hgb Conc 32.7 g/dL (32.0-36.0); Mean Corpuscular Volume 104.2 fL (80.0-100.0); Mean Platelet Volume 10.3 fL (9.4-12.4); Monocytes # (auto) 0.63 K/uL (0.11-0.59); Monocytes % (auto) 15.2 %; Neutrophils # (auto) 2.82 K/uL (1.40-6.50); Neutrophils % (auto) 68.1 %; Platelet Count 184 K/uL (130-400); RDW Coefficient of Variation 13.3 % (11.5-14.5); RDW Standard Deviation 50.1 fL (36.4-46.3); Red Blood Count 3.08 M/uL (4.70-6.10); White Blood Count 4.14 K/ul (4.8-10.8)
[2024-04-10 07:30] LABS: BUN Creatinine Ratio 36.3 (10-20); Creatinine Clr Calc Pharmacy 48.9 ml/min; Magnesium 1.6 mg/dl (1.7-2.4); Potassium 4.2 mmol/L (3.5-5.1)
[2024-04-10] MEDS: GABAPENTIN 300 MG CAP PO SCH (09:57)
[2024-04-10] MEDS: MAGNESIUM SULFATE / D5W 1 GM/100 ML BAG IV ONE (12:35)
--- NOTE | 2024-04-10 18:53 | Hospitalist Progress Note ---
Date of Service April 10, 2024 Assessment & Plan (1) Weakness: Plan: Likely 2/2 severe hypomagnesemia from poor po intake since . Also on HCTZ which can deplete mag Furthermore, chronic PPI use can cause hypomagnesemia Multiple studies on admission to include carotid dopplers, Chest CT, C-spine CT, CT A/P, CT head, CXR, Venous doppler LLE all consistent with age without any significant findings. Continue OT and PT while hospitalized. SNF placement is pending. Improving Continue to increase activity as tolerated with supervision Patient sitting in bedside chair with no acute complaints. (2) Hypomagnesemia: Plan: Severely low on admission at 1.0, replaced frequently and low again now despite oral replacement Discontinue PPI. Can use famotidine as needed if develops heartburn Follow Mag level again in the morning Continue magnesium 400 mg p.o. twice daily and give 1 g IV magnesium today Continue to hold HCTZ (3) Lumbar radiculopathy: Plan: Ongoing chronic problem, history of lumbar spine surgery With pain radiating down through both hips to the knees and feet Pain in feet now much better and pain in hips and thighs somewhat better with starting gabapentin Titrating gabapentin upward-will increase further to 300 mg in the morning and afternoon and 600 mg at bedtime-dose change on 04/10 Continue prn oxycodone for breakthrough pain but trying to use sparingly (4) Rhabdomyolysis: Plan: Mild on admission secondary to being down on the ground for several hours. Now resolved with CK down to 224 (5) Anemia: Plan: Hemoglobin mildly low at 10.7-11, MCV elevated at 102 B12 level and folate level here are normal Iron studies normal F/u as outpt with Heme as could have MDS (6) Elevated LFTs: Plan: Present on admission. Likely secondary to rhabdomyolysis but also has fatty liver-now improved (7) Swelling of left lower extremity: Plan: No evidence of DVT. Likely chronic venous insufficiency. No overt cellulitis. Rocephin that was started on admission has since been discontinued. also has had inguinal hernia surgery-perhaps lymphedema Plan Chronic medical problems: Anxiety/Insomnia-continue lorazepam as needed at bedtime HTN-blood pressures are controlled-continue lisinopril, metoprolol. Triamterene HCTZ on hold and would not likely restart given severe hypomagnesemia CAD-S/p stent 2001. Stable. Continue ASA, statin, metoprolol COPD-Complained of some shortness of breath on admission but no overt pneumonia and no CHF. No PE seen on chest CT scan but has chronic pleural effusion pulmonary consultation and recommendations appreciated-pulmonary says no need for sampling and does not need antibiotics. With pleural effusion, h/o Pancoast tumor removed. Continue theophylline as needed Follow-up with outpatient pulmonology after discharge CKD Stage III-Stable. Monitor intake and output. Serial labs DVT prophylaxis-SCDs, SQ Lovenox Disposition-medically stable for discharge, peer to peer completed and denied for acute rehab. Awaiting placement at SNF-awaiting bed availability at [facility] on Friday Discussed care with brother at bedside on 04/06 and again on 04/09 Admission and Anticipated Discharge Date Admission Date: March 30, 2024 Supervising Physician Co-Signing Physician Notes chart reviewed, case d/w E Herbert PAC - as above Subjective Attending: Dr. Huertas Patient is doing well. No acute complaints. Awaiting placement at either [facility] or [facility] Review of Systems 2 Review of Systems: A total of 10 systems was reviewed and is negative other than as listed in the HPI Physical Exam 2 Physical Exam: GENERAL : No acute distress EYES: No icterus, gaze conjugate NOSE: No evidence of epistaxis MOUTH: No lesions or candidiasis NECK: Supple LUNGS: CTA B/L, no wheezes, rales or rhonchi HEART: Regular, rate controlled ABDOMEN: Soft, NT, ND, BS Present EXTREMITIES: No LE edema, pedal pulses intact NEURO: A&OX3 Results & Data Results & Data Vital Signs (Past 12 Hours) Vital Signs Temp Pulse Resp BP Pulse Ox O2 Del Method 04/10/24 15:26 36.8 C 59 L 16 101/63 97 Room Air 04/10/24 08:15 Room Air 04/10/24 07:10 36.6 C 58 L 16 97/60 L 94 Room Air Laboratory Results 04/10/24 06:41 04/10/24 06:41 Diagnostic Findings Abdomen/Pelvis CT 03/30/24 12:15 EXAM: CT Abdomen and Pelvis With Intravenous Contrast INDICATION: Multiple falls. TECHNIQUE: Axial computed tomography images of the abdomen and pelvis with intravenous contrast. Sagittal and coronal reformatted images were created and reviewed. This CT exam was performed using one or more of the following dose reduction techniques: automated exposure control, adjustment of the mA and/or kV according to patient size, and/or use of iterative reconstruction technique. CONTRAST: 94ml of Optiray 320 was administered intravenously. COMPARISON: No relevant prior studies available. FINDINGS: Limitations: None. Lung bases: No abnormality noted. Pleural space: Loculated right basilar pleural effusion noted. Heart: No abnormality noted. Mediastinum: No abnormality noted. ABDOMEN: Liver: Normal size and contour. Hypodense typical of steatosis. No mass or ductal dilation. Gallbladder and bile ducts: No calcified stones or surrounding fluid. Pancreas: Homogeneous enhancement. No mass, inflammation or ductal dilation. Spleen: No significant abnormality noted. Adrenals: No significant abnormality noted. Kidneys and ureters: Simple bilateral renal cysts noted. No follow-up necessary. No stones or hydronephrosis. Stomach and bowel: Moderate to large amounts of diffuse colonic stool. Diverticulosis noted. No diverticulitis. Mild prominent fluid in nondilated small bowel loops in the left abdomen. No obstructing point. No inflammatory process noted. PELVIS: Appendix: No findings to suggest acute appendicitis. Bladder: The bladder is incompletely distended. There is asymmetric thickening of the right wall. No gas or stones. Reproductive: No abnormalities noted. ABDOMEN and PELVIS: Intraperitoneal space: No free air. No significant fluid collection. Bones/joints: Severe degenerative changes noted at multiple spinal levels. Posterior L4-L5 fusion hardware intact and well-seated. Metallic artifact limits assessment of the canal at these levels. No acute osseous abnormality identified. Soft tissues: Fat-containing right inguinal hernia noted. Suspect prior left inguinal hernia repair without recurrence. Vasculature: No abdominal aortic aneurysm. Lymph nodes: No pathologically enlarged lymph nodes. IMPRESSION: 1. No traumatic change identified. 2. Asymmetric right bladder wall thickening. While this could reflect underdistention, mass and cystitis should be considered and excluded. 3. Loculated right basilar pleural effusion. ACT 112: Negative or not required by law. Electronically signed by Sara Vazquez 03-30-2024 2:[address] 03/30/24 12:15 CT OF THE CERVICAL SPINE WITHOUT CONTRAST CLINICAL HISTORY: Falls. COMPARISON STUDY: Cervical spine radiographs March 17, 2013. MRI of the cervical spine March 19, 2013. TECHNIQUE: Helical axial images of the cervical spine were obtained without IV contrast. Sagittal and coronal reconstructions were viewed. Automated exposure control was utilized for the study. A dose lowering technique was utilized adhering to the principles of ALARA. FINDINGS: There is reversal of the cervical lordosis with anterolisthesis of C3 on C4 and C4 on C5, likely related to facet arthrosis. No acute cervical spine fractures are present. There are no suspicious lesions within the cervical spine. Central canal and neural foramen are suboptimally assessed given CT technique. There is moderate to severe multilevel disc space narrowing, endplate osteophytosis and facet arthrosis within the cervical spine. Postoperative findings within the right hemithorax with right apical soft tissue thickening are better depicted on the chest CT which will be reported separately. IMPRESSION: 1. No acute cervical spine fracture or subluxation. 2. Moderate to severe multilevel degenerative disc disease and facet arthrosis within the cervical spine. 3. Postoperative findings within the right hemithorax with nonspecific right apical soft tissue thickening better depicted on the chest CT which will be reported separately. ACT 112: Negative or not required by law. Electronically signed by: Jc Gipson M.D. 03/30/2024 2:[address] 03/30/24 12:15 EXAM: CT Chest With Intravenous Contrast INDICATION: Multiple falls. Shortness of breath. TECHNIQUE: Axial computed tomography images of the chest with intravenous contrast. Sagittal and coronal reformatted images were created and reviewed. This CT exam was performed using one or more of the following dose reduction techniques: automated exposure control, adjustment of the mA and/or kV according to patient size, and/or use of iterative reconstruction technique. CONTRAST: 94ml of Optiray 320 was administered intravenously. COMPARISON: No relevant prior studies available. FINDINGS: Limitations: None. Lungs and pleural spaces: 3 mm oval pleural-based right nodule series 7 image 34. Coarse scarring noted in the right upper and lower lung. There is a loculated right basilar pleural effusion measuring 14.1 cm transverse by 7.0 cm AP by 11.8 cm long. No associated gas. No pneumothorax. Heart: Cardiomegaly. Dense coronary calcification noted. No pericardial effusion. Thyroid: No abnormality noted. Bones/joints: Postoperative changes right chest wall with multiple right rib resection. Degenerative changes noted in the spine. No acute osseous abnormality. Soft tissues: No significant abnormality noted. Vasculature: Atherosclerotic calcification of the aorta and branches. No aneurysm. Lymph nodes: No enlarged lymph nodes. Liver: Fatty liver. IMPRESSION: 1. No acute abnormality identified. 2. Loculated right basilar pleural effusion. 3. Right pulmonary scarring and multiple right rib resection changes. ACT 112: Negative or not required by law. Electronically signed by Sara Vazquez 03-30-2024 2:[address] 03/30/24 12:15 EXAM: CT Head Without Intravenous Contrast INDICATION: Multiple falls yesterday. Weakness, dizziness and lightheadedness. TECHNIQUE: Axial computed tomography images of the head/brain without intravenous contrast. Sagittal and/or coronal reformats are provided. Sagittal and coronal reformatted images were created and reviewed. This CT exam was performed using one or more of the following dose reduction techniques: automated exposure control, adjustment of the mA and/or kV according to patient size, and/or use of iterative reconstruction technique. COMPARISON: No relevant prior studies available. FINDINGS: Limitations: None. Brain and extra-axial spaces: There is age appropriate cortical atrophy and chronic ischemic periventricular white matter hypodensity. No acute infarct, hemorrhage or mass noted. Bones/joints: No acute changes. Soft tissues: No significant abnormality noted. Vasculature: No acute abnormality noted. Sinuses: Mild chronic right maxillary sinus thickening. There is a 3 to 4 mm retention cyst or polyp in the floor of the left sphenoid sinus. There is mild chronic right frontal sinus thickening. Mastoid air cells: No mastoid effusion. Orbits: No significant abnormality noted. IMPRESSION: 1. Cerebral atrophy. No acute changes. 2. Mild chronic sinus disease. ACT 112: Negative or not required by law. Electronically signed by Sara Vazquez 03-30-2024 2:03 PM Chest X-Ray 03/30/24 12:17 XR chest 1V portable CLINICAL HISTORY: Weakness. Non-small cell lung cancer. COMPARISON STUDY: Chest radiograph April 18, 2023. Chest CT March 01, 2024. FINDINGS: There is no pneumothorax. Lobulated opacity at the medial right lung base corresponds to a right pleural effusion, as shown on prior CT. Postoperative deformity of the right upper chest wall is noted. Findings are better depicted on prior chest CT. Cardiomegaly is unchanged. There is no evidence for pulmonary edema. There is no consolidation to suggest pneumonia. IMPRESSION: 1. No pneumothorax. No consolidation to suggest pneumonia. 2. Postoperative findings within the right mid thorax, including right upper chest wall deformity, better depicted on recent chest CT. 3. Persistent loculated right pleural effusion. ACT 112: Negative or not required by law. Electronically signed by: Jc Gipson M.D. 03/30/2024 1:43 PM Venous Doppler Study 03/30/24 16:42 Exam(s): US VENOUS LEFT LOWER EXTREMITY EXAM: US Duplex Left Lower Extremity Veins CLINICAL HISTORY: Reason for exam: LLE edema. TECHNIQUE: Real-time duplex ultrasound scan of the left lower extremity veins integrating B-mode two-dimensional vascular structure, Doppler spectral analysis, color flow Doppler imaging and compression. COMPARISON: 03/26/2017 FINDINGS: Deep veins: Unremarkable. The visualized deep veins of the left lower extremity are compressible with color flow. No visualized thrombus. Superficial veins: Unremarkable. Soft tissues: Soft tissue edema in the left lower extremity. IMPRESSION: 1. No DVT in the left lower extremity. 2. Soft tissue edema in the left lower extremity. Electronically signed by: Jeff Pemberton MD 03/30/24 21:28 PM Chest X-Ray 03/31/24 07:41 XR chest 2V PA/lateral CLINICAL HISTORY: f/u effusion COMPARISON STUDY: Chest radiograph and chest CT March 30, 2024. FINDINGS: There is no pneumothorax. A loculated right pleural effusion is unchanged. Postoperative findings within the right chest wall with multiple rib resections are again noted. The appearance of the chest is unchanged since prior exam. Cardiomediastinal silhouette is stable. Mild bibasilar opacities favor atelectasis or scarring. There is no consolidation to suggest pneumonia. There is no evidence for pulmonary edema. IMPRESSION: 1. No significant change in appearance of the chest. Stable loculated right pleural effusion. 2. Bibasilar densities which favor atelectasis. ACT 112: Negative or not required by law. Electronically signed by: Jc Gipson M.D. 03/31/2024 9:13 AM Carotid Doppler Study 03/31/24 16:02 EXAM: US Duplex Bilateral Extracranial Arteries INDICATION: History of stenosis. Dizziness. TECHNIQUE: Real-time duplex ultrasound scan of the extracranial arteries integrating B-mode two-dimensional vascular structure, Doppler spectral analysis and color flow Doppler imaging. COMPARISON: No relevant prior studies available. FINDINGS: Right common carotid artery: Peak systolic velocity 79 cm/s. Distal intimal thickening and smooth plaque. No occlusion or segmental stenosis on color flow and spectral Doppler imaging. Right internal carotid artery: Peak systolic velocity 215 cm/s there is diffuse. Irregular, mixed plaque. No occlusion or segmental stenosis on color flow and spectral Doppler imaging. Right external carotid artery: No abnormality noted. No occlusion or segmental stenosis on color flow and spectral Doppler imaging. Right vertebral artery: No abnormality noted. Antegrade flow. Right ICA/CCA ratio: 3.0. Left common carotid artery: Peak systolic velocity 79 cm/s. Distal mixed plaque with some focal prominent calcific shadowing. No occlusion or segmental stenosis on color flow and spectral Doppler imaging. Left internal carotid artery: Peak systolic velocity 93 cm/s. There is moderate mixed plaque in the bulb. Lesser amounts of mixed plaque identified throughout the remaining artery. No occlusion or segmental stenosis on color flow and spectral Doppler imaging. Left external carotid artery: No abnormality noted. No occlusion or segmental stenosis on color flow and spectral Doppler imaging. Left vertebral artery: No abnormality noted. Antegrade flow. Left ICA/CCA ratio: No abnormality noted. Within normal limits. Lymph nodes: No abnormality noted. No lymphadenopathy. CAROTID STENOSIS REFERENCE USING SRU CRITERIA: Mild - <50% stenosis. ICA PSV is less than 125 cm/second and plaque or intimal thickening is visible. Moderate - 50-69% stenosis. ICA PSV is 125 to 230 cm/second and plaque is visible. Severe - 70-94% stenosis. ICA PSV is more than 230 cm/second and visible plaque with lumen narrowing is seen. Near occlusion - 95-99% stenosis. ICA PSV is variable and significant plaque with luminal narrowing is seen. Occluded - 100% stenosis. No flow identified. IMPRESSION: 1. 50 to 69% right proximal ICA stenosis. 2. Diffuse mixed plaque throughout the left carotid system with less than 50% stenosis. ACT 112: Negative or not required by law. Electronically signed by Sara Vazuqez 03-31-2024 7:03 PM PG Care Time/CCT Total # of Minutes Spent Total Time Spent with Patient: Total time spent is greater than 50% in coordination of care (as documented) at patient's floor/unit and/or counseling patient:20 minutes Coding Level of Care Code 49095 SUB INP/OBS CARE 1/25MIN Diagnoses Weakness R53.1 Hypomagnesemia E83.42 Lumbar radiculopathy M54.16 Rhabdomyolysis M62.82 Anemia D64.9 Elevated LFTs R79.89 Swelling of left lower extremity M79.89 Time Spent (min) 20
--- NOTE | 2024-04-11 18:01 | Hospitalist Progress Note ---
Date of Service April 11, 2024 Assessment & Plan (1) Weakness: Plan: Likely 2/2 severe hypomagnesemia from poor po intake since . Also on HCTZ which can deplete mag Furthermore, chronic PPI use can cause hypomagnesemia Multiple studies on admission to include carotid dopplers, Chest CT, C-spine CT, CT A/P, CT head, CXR, Venous doppler LLE all consistent with age without any significant findings. Continue OT and PT while hospitalized. SNF placement is pending. Improving Continue to increase activity as tolerated with supervision Patient sitting in bedside chair with no acute complaints. (2) Hypomagnesemia: Plan: Severely low on admission at 1.0, replaced frequently and low again now despite oral replacement Discontinue PPI. Can use famotidine as needed if develops heartburn Follow Mag level again in the morning Continue magnesium 400 mg p.o. twice daily and IV repletion Continue to hold HCTZ (3) Lumbar radiculopathy: Plan: Ongoing chronic problem, history of lumbar spine surgery With pain radiating down through both hips to the knees and feet Pain in feet now much better and pain in hips and thighs somewhat better with starting gabapentin Titrating gabapentin upward-will increase further to 300 mg in the morning and afternoon and 600 mg at bedtime-dose change on 04/10. Reports sufficient response Continue prn oxycodone for breakthrough pain but trying to use sparingly (4) Rhabdomyolysis: Plan: Mild on admission secondary to being down on the ground for several hours. Now resolved with CK down to 224 (5) Anemia: Plan: Hemoglobin mildly low at 10.7-11, MCV elevated at 102 B12 level and folate level here are normal Iron studies normal F/u as outpt with Heme as could have MDS Check the CBC in the morning (6) Elevated LFTs: Plan: Present on admission. Likely secondary to rhabdomyolysis but also has fatty liver-now improved Repeat LFTs in the morning (7) Swelling of left lower extremity: Plan: No evidence of DVT. Likely chronic venous insufficiency. No overt cellulitis. Rocephin that was started on admission has since been discontinued. also has had inguinal hernia surgery-perhaps lymphedema Plan Chronic medical problems: Anxiety/Insomnia-continue lorazepam as needed at bedtime HTN-blood pressures are controlled-continue lisinopril, metoprolol. Triamterene HCTZ on hold and would not likely restart given severe hypomagnesemia CAD-S/p stent 2001. Stable. Continue ASA, statin, metoprolol COPD-Complained of some shortness of breath on admission but no overt pneumonia and no CHF. No PE seen on chest CT scan but has chronic pleural effusion pulmonary consultation and recommendations appreciated-pulmonary says no need for sampling and does not need antibiotics. With pleural effusion, h/o Pancoast tumor removed. Continue theophylline as needed Follow-up with outpatient pulmonology after discharge CKD Stage III-Stable. Monitor intake and output. Serial labs DVT prophylaxis-SCDs, SQ Lovenox Disposition-medically stable for discharge, peer to peer completed and denied for acute rehab. Awaiting placement at SNF-awaiting bed availability at [facility] vs [facility] on Friday Discussed care with brother at bedside on 04/06 and again on 04/09 Admission and Anticipated Discharge Date Admission Date: March 30, 2024 Supervising Physician Co-Signing Physician Notes chart reviewed, case d/w E Herbert PAC - as above Subjective Attending: Dr. Huertas Patient is doing well. No acute complaints. Awaiting placement at either [facility] or [facility] Review of Systems 2 Review of Systems: A total of 10 systems was reviewed and is negative other than as listed in the HPI Physical Exam 2 Physical Exam: GENERAL : No acute distress. Sitting in bedside chair next to window EYES: No icterus, gaze conjugate NOSE: No evidence of epistaxis MOUTH: No lesions or candidiasis NECK: Supple LUNGS: CTA B/L, no wheezes, rales or rhonchi HEART: Regular, rate controlled ABDOMEN: Soft, NT, ND, BS Present EXTREMITIES: No LE edema, pedal pulses intact NEURO: A&OX3 Results & Data Results & Data Vital Signs (Past 12 Hours) Vital Signs Temp Pulse Resp BP Pulse Ox O2 Del Method 04/11/24 15:31 36.3 C L 78 16 99/60 L 99 Room Air 04/11/24 07:09 36.4 C L 56 L 16 139/83 96 Room Air Laboratory Results 04/10/24 06:41 04/10/24 06:41 PG Care Time/CCT Total # of Minutes Spent Total Time Spent with Patient: Total time spent is greater than 50% in coordination of care (as documented) at patient's floor/unit and/or counseling patient: 25 minutes Coding Level of Care Code 90639 SUB INP/OBS CARE 05/29MIN Diagnoses Weakness R53.1 Hypomagnesemia E83.42 Lumbar radiculopathy M54.16 Rhabdomyolysis M62.82 Anemia D64.9 Elevated LFTs R79.89 Swelling of left lower extremity M79.89 Time Spent (min) 25
[2024-04-12 07:18] LABS: Hematocrit (blood only) 32.6 % (42.0-52.0); Mean Corpuscular Hemoglobin 35.1 pg (25.0-34.0); Mean Corpuscular Hgb Conc 33.7 g/dL (32.0-36.0); Mean Corpuscular Volume 104.2 fL (80.0-100.0); Mean Platelet Volume 10.2 fL (9.4-12.4); Platelet Count 205 K/uL (130-400); RDW Coefficient of Variation 13.2 % (11.5-14.5); Red Blood Count 3.13 M/uL (4.70-6.10); White Blood Count 3.72 K/ul (4.8-10.8)
[2024-04-12 07:48] LABS: Albumin Level 3.3 gm/dl (3.4-5.0); BUN Creatinine Ratio 37.8 (10-20); Bilirubin,Total 0.6 mg/dl (0.2-1.0); Calcium 9.2 mg/dl (8.6-10.3); Creatinine Clr Calc Pharmacy 50.9 ml/min; Magnesium 1.7 mg/dl (1.7-2.4); Potassium 4.1 mmol/L (3.5-5.1); Total Protein 5.7 gm/dl (6.0-8.3)
--- NOTE | 2024-04-12 13:31 | Hospitalist Progress Note ---
Date of Service April 12, 2024 Assessment & Plan (1) Weakness: Plan: Likely 2/2 severe hypomagnesemia from poor po intake since . Also on HCTZ which can deplete mag Furthermore, chronic PPI use can cause hypomagnesemia Multiple studies on admission to include carotid dopplers, Chest CT, C-spine CT, CT A/P, CT head, CXR, Venous doppler LLE all consistent with age without any significant findings. Continue OT and PT while hospitalized. SNF placement is pending. Improving Continue to increase activity as tolerated with supervision Patient sitting in bedside chair with no acute complaints. (2) Hypomagnesemia: Plan: Severely low on admission at 1.0, replaced frequently and low again now despite oral replacement Discontinue PPI. Can use famotidine as needed if develops heartburn Follow Mag level again in the morning Continue magnesium 400 mg p.o. twice daily and IV repletion Continue to hold HCTZ (3) Lumbar radiculopathy: Plan: Ongoing chronic problem, history of lumbar spine surgery With pain radiating down through both hips to the knees and feet Pain in feet now much better and pain in hips and thighs somewhat better with starting gabapentin Titrating gabapentin upward-will increase further to 300 mg in the morning and afternoon and 600 mg at bedtime-dose change on 04/10. Reports sufficient response Continue prn oxycodone for breakthrough pain but trying to use sparingly (4) Rhabdomyolysis: Plan: Mild on admission secondary to being down on the ground for several hours. Now resolved with CK down to 224 (5) Anemia: Plan: Hemoglobin mildly low at 10.7-11, MCV elevated at 102 B12 level and folate level here are normal Iron studies normal F/u as outpt with Heme as could have MDS reviewed hemoglobin on 04/12 (6) Elevated LFTs: Plan: Present on admission. Likely secondary to rhabdomyolysis but also has fatty liver-now improved Normal LFTs on 04/12 (7) Swelling of left lower extremity: Plan: No evidence of DVT. Likely chronic venous insufficiency. No overt cellulitis. Rocephin that was started on admission has since been discontinued. also has had inguinal hernia surgery-perhaps lymphedema Plan Chronic medical problems: Anxiety/Insomnia-continue lorazepam as needed at bedtime HTN-blood pressures are controlled-continue lisinopril, metoprolol. Triamterene HCTZ on hold and would not likely restart given severe hypomagnesemia CAD-S/p stent 2001. Stable. Continue ASA, statin, metoprolol COPD-Complained of some shortness of breath on admission but no overt pneumonia and no CHF. No PE seen on chest CT scan but has chronic pleural effusion pulmonary consultation and recommendations appreciated-pulmonary says no need for sampling and does not need antibiotics. With pleural effusion, h/o Pancoast tumor removed. Continue theophylline as needed Follow-up with outpatient pulmonology after discharge CKD Stage III-Stable. Monitor intake and output. Serial labs DVT prophylaxis-SCDs, SQ Lovenox Disposition-medically stable for discharge, peer to peer completed and denied for acute rehab. Awaiting placement at [facility]-awaiting bed availability at [facility] on Friday Discussed care with brother at bedside on 04/06 and again on 04/09 Admission and Anticipated Discharge Date Admission Date: March 30, 2024 Subjective 73 yo male reports no new symptoms. Review of Systems Review of Systems: All systems reviewed & are unremarkable except as noted in HPI & below Physical Exam Physical Exam: GENERAL : No acute distress. Sitting in bedside chair next to window EYES: No icterus, gaze conjugate NOSE: No evidence of epistaxis MOUTH: No lesions or candidiasis NECK: Supple LUNGS: CTA B/L, no wheezes, rales or rhonchi HEART: Regular, rate controlled ABDOMEN: Soft, NT, ND, BS Present EXTREMITIES: No LE edema, pedal pulses intact NEURO: A&OX3 Results & Data Results & Data Vital Signs (Past 12 Hours) Vital Signs Temp Pulse Resp BP Pulse Ox O2 Del Method 04/12/24 07:43 36.4 C L 53 L 16 112/68 97 Room Air PG Care Time/CCT Total # of Minutes Spent Total Time Spent with Patient: Total time spent is greater than 50% in coordination of care (as documented) at patient's floor/unit and/or counseling patient: Coding Level of Care Code 29558 SUB INP/OBS CARE 2/35MIN Diagnoses Weakness R53.1 Hypomagnesemia E83.42 Lumbar radiculopathy M54.16 Rhabdomyolysis M62.82 Anemia D64.9 Elevated LFTs R79.89 Swelling of left lower extremity M79.89
--- NOTE | 2024-04-13 22:54 | Hospitalist Progress Note ---
Date of Service April 13, 2024 Assessment & Plan (1) Weakness: Plan: Likely 2/2 severe hypomagnesemia from poor po intake since . Also on HCTZ which can deplete mag Furthermore, chronic PPI use can cause hypomagnesemia Multiple studies on admission to include carotid dopplers, Chest CT, C-spine CT, CT A/P, CT head, CXR, Venous doppler LLE all consistent with age without any significant findings. Continue OT and PT while hospitalized. SNF placement is pending. Improving Continue to increase activity as tolerated with supervision Patient sitting in bedside chair with no acute complaints. (2) Hypomagnesemia: Plan: Severely low on admission at 1.0, replaced frequently and low again now despite oral replacement Discontinue PPI. Can use famotidine as needed if develops heartburn Follow Mag level again in the morning Continue magnesium 400 mg p.o. twice daily and IV repletion Continue to hold HCTZ (3) Lumbar radiculopathy: Plan: Ongoing chronic problem, history of lumbar spine surgery With pain radiating down through both hips to the knees and feet Pain in feet now much better and pain in hips and thighs somewhat better with starting gabapentin Titrating gabapentin upward-will increase further to 300 mg in the morning and afternoon and 600 mg at bedtime-dose change on 04/10. Reports sufficient response Continue prn oxycodone for breakthrough pain but trying to use sparingly (4) Rhabdomyolysis: Plan: Mild on admission secondary to being down on the ground for several hours. Now resolved with CK down to 224 (5) Anemia: Plan: Hemoglobin mildly low at 10.7-11, MCV elevated at 102 B12 level and folate level here are normal Iron studies normal F/u as outpt with Heme as could have MDS reviewed hemoglobin on 04/12 (6) Elevated LFTs: Plan: Present on admission. Likely secondary to rhabdomyolysis but also has fatty liver-now improved Normal LFTs on 04/12 (7) Swelling of left lower extremity: Plan: No evidence of DVT. Likely chronic venous insufficiency. No overt cellulitis. Rocephin that was started on admission has since been discontinued. also has had inguinal hernia surgery-perhaps lymphedema Plan Chronic medical problems: Anxiety/Insomnia-continue lorazepam as needed at bedtime HTN-blood pressures are controlled-continue lisinopril, metoprolol. Triamterene HCTZ on hold and would not likely restart given severe hypomagnesemia CAD-S/p stent 2001. Stable. Continue ASA, statin, metoprolol COPD-Complained of some shortness of breath on admission but no overt pneumonia and no CHF. No PE seen on chest CT scan but has chronic pleural effusion pulmonary consultation and recommendations appreciated-pulmonary says no need for sampling and does not need antibiotics. With pleural effusion, h/o Pancoast tumor removed. Continue theophylline as needed Follow-up with outpatient pulmonology after discharge CKD Stage III-Stable. Monitor intake and output. Serial labs DVT prophylaxis-SCDs, SQ Lovenox Disposition-medically stable for discharge, peer to peer completed and denied for acute rehab. Awaiting placement at [facility]-awaiting bed availability at [facility] on Friday Admission and Anticipated Discharge Date Admission Date: March 30, 2024 Subjective 73 yo male reports no new symptoms. Physical Exam Physical Exam: GENERAL : No acute distress. Sitting in bedside chair next to window Results & Data Results & Data Vital Signs (Past 12 Hours) Vital Signs Temp Pulse Pulse Resp BP Pulse Ox O2 Del Method 04/13/24 19:15 36.7 C 90 18 99/53 L 91 Room Air 04/13/24 15:16 36.6 C 60 16 96/55 L 96 Room Air PG Care Time/CCT Total # of Minutes Spent Total Time Spent with Patient: Total time spent is greater than 50% in coordination of care (as documented) at patient's floor/unit and/or counseling patient: Coding Level of Care Code 18990 SUB INP/OBS CARE 1/25MIN Diagnoses Weakness R53.1 Hypomagnesemia E83.42 Lumbar radiculopathy M54.16 Rhabdomyolysis M62.82 Anemia D64.9 Elevated LFTs R79.89 Swelling of left lower extremity M79.89
[2024-04-14 07:45] VITALS: BP 111/69; RESP 16; TEMP 97.3; O2SAT 95
[2024-04-14 12:20] VITALS: PULSE 73
--- NOTE | 2024-04-14 13:31 | Discharge Summary ---
Discharge Summary Date of Service April 14, 2024 Principal Dx & Hospital Course #1 = Principal Diagnosis (1) Weakness: Likely 2/2 severe hypomagnesemia from poor po intake since . Also on HCTZ which can deplete mag Furthermore, chronic PPI use can cause hypomagnesemia Multiple studies on admission to include carotid dopplers, Chest CT, C-spine CT, CT A/P, CT head, CXR, Venous doppler LLE all consistent with age without any significant findings. Continue OT and PT while hospitalized. SNF placement will be today, patient clinically improving. Continue to increase activity as tolerated with supervision Patient sitting in bedside chair with no acute complaints. (2) Hypomagnesemia: Severely low on admission at 1.0, replaced frequently and low again now despite oral replacement Discontinue PPI. Can use famotidine as needed if develops heartburn Follow Mag level again in the morning Continue magnesium 400 mg p.o. twice daily Continue to hold HCTZ (3) Lumbar radiculopathy: Ongoing chronic problem, history of lumbar spine surgery With pain radiating down through both hips to the knees and feet Pain in feet now much better and pain in hips and thighs somewhat better with starting gabapentin Titrating gabapentin upward-will increase further to 300 mg in the morning and afternoon and 600 mg at bedtime-dose change on 04/10. Reports sufficient respon se Continue prn oxycodone for breakthrough pain but trying to use sparingly (4) Rhabdomyolysis: Mild on admission secondary to being down on the ground for several hours. Now resolved with CK down to 224 (5) Anemia: Hemoglobin mildly low at 10.7-11, MCV elevated at 102 B12 level and folate level here are normal Iron studies normal F/u as outpt with Heme as could have MDS reviewed hemoglobin on 04/12 (6) Elevated LFTs: Present on admission. Likely secondary to rhabdomyolysis but also has fatty liver-now improved Normal LFTs on 04/12 (7) Swelling of left lower extremity: No evidence of DVT. Likely chronic venous insufficiency. No overt cellulitis. Rocephin that was started on admission has since been discontinued. also has had inguinal hernia surgery-perhaps lymphedema Plan Chronic medical problems: Anxiety/Insomnia-continue lorazepam as needed at bedtime HTN-blood pressures are controlled-continue lisinopril, metoprolol. Triamterene HCTZ on hold and would not likely restart given severe hypomagnesemia CAD-S/p stent 2001. Stable. Continue ASA, statin, metoprolol COPD-Complained of some shortness of breath on admission but no overt pneumonia and no CHF. No PE seen on chest CT scan but has chronic pleural effusion pulmonary consultation and recommendations appreciated-pulmonary says no need for sampling and does not need antibiotics. With pleural effusion, h/o Pancoast tumor removed. Continue theophylline as needed Follow-up with outpatient pulmonology after discharge CKD Stage III-Stable. Admission HPI Per Admitting Provider 73-year-old male presenting for shortness of breath and associated weakness with falls. ED course: CBC RBC 3.6L, H&H 12.4/35.9, MCH 34.4, platelets 116; PT/INR WNL; CMP potassium 3.3 (replaced in ED 20 mEq), BUN 28, BUN/creatinine ratio 29.8; magnesium 1 (replaced in ED 1 g), total bilirubin 1.6, AST 90, ALT 54, globulin 2.4; UA 1+ protein, plus ketones, blood, no evidence of bacteria; BioFire negative.; CTAP asymmetric right bladder wall thickening, loculated right basilar pleural effusion; cervical spine CT no acute cervical spine fracture or subluxation, moderate to severe multilevel degenerative disc disease and facet arthrosis cervical spine, postoperative findings within the right hemothorax with nonspecific right apical soft tissue thickening; chest CT loculated right basilar pleural effusion, or pulmonary scarring multiple rib right resection changes; cerebral atrophy, mild chronic sinus disease; CXR no pneumothorax, no suggestive findings of pneumonia, postop findings with right mid thorax including right upper chest wall deformity, persistent loculated right pleural effusion.; EKG normal sinus rhythm rate around 80, RBBB. Pro vided with IVF (NSS), KCl, mag sulfate, and cefepime 2 g in ED. Patient is a 73-year-old male PMHx HTN, anxiety, CKD stage IIIb, CAD, GERD, COPD, and secondary hyperparathyroidism presenting for shortness of breath, weakness, and falls. States that these falls and weakness began 1 day prior to arrival. States that the dizzy this may be secondary to him standing up too fast, as it seems to be related to standing compared to being a random occurrence. States that he feels off balance and not so much as though the room is spinning. Instead of full falls, patient states that he rather stumbles and will bump into things causing his excessive bruising. Denies any chest pain or LOC. Believes that part of the reason he starts to feel off balance is because of his left extremity being so swollen, with his right also swollen but less significantly. Patient states that he cannot take water pills because it impairs his renal function. States that he has had this happen before but he does not remember what was done for him. Does have associated SOB that started yesterday as well, per patient. States that he is coughing up sputum but is unsure of the descriptive characteristics of such because he does not look at it. Denying additional URI symptoms, fever, or chills. Not having abdominal pain, N/V/D/C. Reports just feeling anxious about things ever since his 's recent passing approximately 1 month ago. Overall denying chest pain, palpitations, abdominal pain, N/V/D/C, numbness/tingling, or LUTS. Did not take a.m. medications. Please see Dr. Rojas's attestation for adjustments/additions to treatment plan. Discharge Exam GENERAL : No acute distress. Sitting in bedside chair next to window Discharge Plan Discharge Items Patient Disposition: Transfer [facility] Reason For Visit: WEAKNESS FALLS Discharge Diagnosis: weakness, falls Condition on Discharge: Fair Activity: Resume your previous activity Non-emergency contact: Primary Care Provider Call non-emergency contact if: you have any medication questions Follow-up/Referrals: Kendra Gipson MD [Primary Care Provider] - Diet: Heart Healthy Addtl Attending Provider Instructions: Recommend followup with PCP in 1-2 weeks. May use Pepcid for GERD symptoms. Your weakness was caused from having low magnesium and pantoprazole use. We hope you regain more of your strength at the [facility]. Pending Studies at Discharge: No Stand-Alone Forms: My [facility] Skilled Items Patient informed of condition?: Yes DNR: Yes Discharge Level of Care: Skilled Communicable Disease: No Discharge Prognosis: Stable Lines: None Urinary Catheter: No Medications and DC Order Prescriptions: New gabapentin 300 mg Capsule 600 mg PO HS Qty: 30 0RF lidocaine 5 % Adhesive Patch,Medicated 1 patch transdermal QAM Qty: 7 0RF folic acid 1 mg Tablet 1 mg PO QAM Qty: 30 0RF thiamine HCl (vitamin B1) 100 mg Tablet 100 mg PO QAM Qty: 30 0RF gabapentin 300 mg Capsule 300 mg PO BID@0900,1400 Qty: 60 0RF acetaminophen 325 mg capsule 650 mg PO QID Qty: 120 0RF sennosides-docusate sodium [Senokot-S] 8.6-50 mg Tablet 1 tab PO QAM Qty: 30 0RF Continued theophylline 300 mg tablet extended release 12 hr 150 mg PO DAILY PRN (Reason: Shortness Of Breath) Qty: 45 3RF melatonin 3 mg tablet 3 mg PO HS PRN (Reason: sleep) Qty: 14 0RF multivitamin Tablet 1 tab PO QAM pseudoephedrine HCl [Sudafed] 30 mg tablet 30 mg PO Q6H PRN (Reason: Congestion) simethicone [Gas Relief (simethicone)] 125 mg capsule 125 mg PO DAILY PRN (Reason: BLOATING) aspirin 81 mg tablet,delayed release (DR/EC) 81 mg PO 2XWK lorazepam 0.5 mg tablet 0.5 mg PO Q8H PRN (Reason: anxiety) Qty: 30 0RF nitroglycerin [Nitrostat] 0.4 mg tablet, sublingual 0.4 mg SL Q5M PRN (Reason: chest pain) Qty: 25 5RF Rx Instructions: until response; do not exceed 3 doses per episode Changed atorvastatin 80 mg tablet 80 mg PO QAM Qty: 30 0RF allopurinol 100 mg tablet 100 mg PO QAM Qty: 30 0RF metoprolol tartrate 50 mg tablet 12.5 mg PO BID Qty: 60 0RF sertraline 25 mg tablet 25 mg PO QAM Qty: 30 0RF magnesium 200 mg tablet 400 mg PO BID Qty: 120 0RF Discontinued triamterene-hydrochlorothiazid 75-50 mg tablet See Rx Instructions PO DAILY Qty: 90 3RF Rx Instructions: 1/2 tab to 1 tab PO DAILY omeprazole 20 mg capsule,delayed release(DR/EC) 20 mg PO QAM lisinopril 5 mg tablet 5 mg PO QAM Discharge Orders: Discharge Order (Routine); Ordered 04/14/24 Ordered By: Bentley Gooden Admission Data Admit Date/Time: 03/30/24 16:08 Attending Provider: Bentley Gooden Admit Provider: Devyn Rojas Primary Care Provider: Kendra Gipson Other Providers: Devyn Rojas; [place],[facility], [place]; [facility]; [facility]; [facility]; [facility] Other Interventions: Discharge Summary Assessment (RN) Last Done: 04/14/24 12:18 Hospital Stay Data Consultations 03/30/24 14:56 ED Decision to Admit Stat 03/31/24 12:18 Consult Pulmonology Routine Diagnostic Imagining Performed 03/30/24 12:15 CT abd pelvis IV con only Stat CT cervical spine wo con Stat CT chest diagnostic w con Stat CT head/brain wo con Stat 03/30/24 16:42 US venous doppler LE LT Routine 03/31/24 16:02 US carotid doppler BI Routine Pending Results Patient Have Any Pending Studies at Discharge: No Discharge Instructions Given to Patient (Per Discharging Provider) Recommend followup with PCP in 1-2 weeks. May use Pepcid for GERD symptoms. Your weakness was caused from having low magnesium and pantoprazole use. We hope you regain more of your strength at the [facility]. Total Time Total Time Spent Total Time Spent (In Minutes): 32 Coding Level of Care Code 66196 INP/OBS DISCH >30 MIN Diagnoses Weakness R53.1 Hypomagnesemia E83.42 Lumbar radiculopathy M54.16 Rhabdomyolysis M62.82 Anemia D64.9 Elevated LFTs R79.89 Swelling of left lower extremity M79.89
== END 2024-04-14 13:00 | DRG 640 ==
LOC: ED 11:46 → SUATTDRO 16:08 → 3N 16:08

== ENCOUNTER 2024-05-28 12:41 | Inpatient (IN) ==
[2024-05-28 13:49] LABS: Hematocrit (blood only) 40.8 % (42.0-52.0); Hemoglobin 14.2 g/dl (14.0-18.0); Mean Corpuscular Hemoglobin 35.5 pg (25.0-34.0); Mean Corpuscular Hgb Conc 34.8 g/dL (32.0-36.0); Mean Platelet Volume 9.5 fL (9.4-12.4); Platelet Count 183 K/uL (130-400); RDW Coefficient of Variation 13.9 % (11.5-14.5); RDW Standard Deviation 52.7 fL (36.4-46.3)
[2024-05-28 14:08] LABS: Basophils # (auto) 0.02 K/uL (0.00-0.20); Basophils % (auto) 0.2 %; Immature Granulocytes # (auto) 0.03 K/uL (0.01-0.20); Immature Granulocytes % (auto) 0.2 %; Lymphocytes # (auto) 0.27 K/uL (1.20-3.40); Lymphocytes % (auto) 2.2 %; Monocytes # (auto) 0.66 K/uL (0.11-0.59); Monocytes % (auto) 5.4 %; Neutrophils # (auto) 11.32 K/uL (1.40-6.50)
[2024-05-28 14:11] LABS: Alanine Aminotransferase 31 U/L (7-52); Albumin Globulin Ratio 1.7 (0.9-2); Albumin Level 4.7 gm/dl (3.4-5.0); Alkaline Phosphatase 106 U/L (34-104); Anion Gap 11 (3-11); Aspartate Aminotransferase 85 U/L (13-39); BUN Creatinine Ratio 22.1 (10-20); Bilirubin,Total 0.8 mg/dl (0.2-1.0); Blood Urea Nitrogen 25 mg/dl (6-23); Calcium 9.6 mg/dl (8.6-10.3); Carbon Dioxide 26 mmol/L (21-32); Chloride 104 mmol/L (98-107); Globulin 2.7 gm/dl (2.5-4.0); Glucose 118 mg/dl (70-99(Fasting)); Sodium 141 mmol/L (136-145); Total Protein 7.4 gm/dl (6.0-8.3)
--- NOTE | 2024-05-28 14:19 | Emergency Department Note ---
Impression & Plan Pedal edema, Weakness, Swelling of left lower extremity, Periorbital edema of left eye, Elevated troponin I level ED Provider Note NAME: KAM RODRÍGUEZ AGE: 73 SEX: M : 1950 ARRIVES VIA: Ambulance INFORMANT: Patient, the patient's brother ED PROVIDER(S): Derek Morse DO CHIEF COMPLAINT: Facial swelling HPI: The patient is a 73-year-old male who presented to the emergency department for an evaluation of facial swelling. The patient started having left-sided facial swelling this morning. His brother presented to the emergency department with him and does give part of the history. Apparently the patient started having left-sided facial swelling this morning but also has been having lower extremity swelling over the last few weeks. He is not been seen by his family doctor. He denies having any chest pain or abdominal pain. He denies having any black or tarry stools. He denies having any trauma. ROS: See above HPI for pertinent positives & negatives. A total of 10 systems reviewed and were otherwise negative. PAST MEDICAL HISTORY: See Below PAST SURGICAL HISTORY: See Below FAMILY HISTORY: See Below SOCIAL HISTORY: See Below HOME MEDICATIONS: See Below ALLERGIES: See Below VITALS: See Below PHYSICAL EXAMINATION: GENERAL: Patient is awake alert in no acute distress patient is resting comfortably and showing no signs of anxiety EYES: The conjunctivae are clear. The pupils are round and reactive. There is left-sided periorbital edema with erythema noted. EARS, NOSE, MOUTH AND THROAT: The nose is without any evidence of any deformity. Mucous membranes are moist. Tongue is midline. NECK: The neck is nontender and supple. RESPIRATORY: Normal respiratory effort is noted there is no evidence of wheezing rhonchi or rales CARDIOVASCULAR: Regular rate and rhythm noted there no murmurs rubs or gallops normal S1 normal S2. GASTROINTESTINAL: The abdomen is soft. Abdomen is nontender. MUSCULOSKELETAL/EXTREMITIES: There is no evidence of gross deformity full range of motion is noted in the hips and shoulders. SKIN: Bilateral pedal edema was noted. There was ecchymosis noted over the upper extremities. NEUROLOGIC: Patient is awake alert and oriented x3 MEDICAL DECISION MAKING: The patient is a 73-year-old male who presented to the emergency department for left eye swelling. The patient presented with his brother. The patient appeared awake and alert but appeared to be off at times. I discussed the patient's laboratory and radiographic studies with him. I discussed his condition with the on-call [facility] hospitalist. His swelling on his left thigh does appear to be more positional. As he was sitting up more in the room it did appear to improve. There was some erythema and it could have an underlying degree of cellulitis. Blood cultures were ordered by myself but I defer antibiotic ordering to the admitting team. The patient may have been laying on his left side for a prolonged period of time. Triage Nursing notes reviewed. Prior medical records reviewed Vital Signs: reviewed and remarkable for blood pressure. Differential diagnosis: Cellulitis, abscess, MRSA infection, DVT, necrotizing fasciitis, dermatitis, drug eruption, allergic reaction, as well as other pathologies. ER treatment provided: See below Diagnostics interpreted by me: ECG: EKG was obtained in the emergency department. My interpretation is normal sinus rhythm at 82 bpm. There was no ectopy. Right bundle branch block pattern was noted. This was compared to a tracing from April 02, 2024. No changes were noted. Cardiac Monitoring: An order was placed for continuous cardiac monitoring. The monitor shows a rate of 85 bpm with sinus rhythm. Laboratory studies: As stated above and show below. Imaging studies: See below. Radiographic imaging was reviewed by myself Consultation(s): I discussed this case with Dr. Montaño who is on-call for the [facility] hospitalist group. Past Med/Surg History Problem List (Updated 05/29/24 @ 08:19 by Derek Morse DO) Elevated troponin I level (Acute) Elevated troponin Acute encephalopathy Friction burn Periorbital edema of left eye (Acute) Pedal edema (Acute) Anemia (Acute) Pleural effusion Elevated LFTs Rhabdomyolysis Cellulitis (Acute) Hypomagnesemia (Acute) Abdominal wall contusion (Acute) Chest wall contusion (Acute) Fall (Acute) Weakness (Acute) Swelling of left lower extremity (Acute) Stasis dermatitis Weakness Adjacent segment disease of lumbar spine with history of fusion procedure Foraminal stenosis of lumbosacral region History of fusion of lumbar spine Foot drop, right Spondylolisthesis Degenerative lumbar spinal stenosis Degenerative disc disease Lesion of left [place] kidney Microscopic hematuria Abdominal aortic ectasia (Chronic) 2.9 cm 12/18/22 Hypertension (Chronic) Anxiety (Chronic) History of colon polyps Rupture of right distal biceps tendon Tubular adenoma of colon (Chronic) Peripheral vascular disease (Chronic) History of gout (Chronic) Former smoker (Chronic) Diverticulosis (Chronic) Stage 3b chronic kidney disease (Chronic) follows with Dr. Diaz Hypercholesterolemia (Chronic) Dropfoot (Chronic) left Impaired fasting blood sugar (Chronic) Coronary artery disease (Chronic) LAD stent 2002 > follows with Dr. 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 Status post completion of combined radiation and chemotherapy radiation completed 05/18/2013 received 6000 cGy status post mediastinoscopy, right posterior lateral thoracotomy, right intracostal flap mobilization with coverage of the bronchial stump and mediastinal lymphadenectomy 07/08/2013 Stage [id number] GERD (gastroesophageal reflux disease) (Chronic) Chronic obstructive pulmonary disease (Chronic) Carotid artery plaque (Chronic) Medical History Biceps tendon tear rt arm (limb restriction) Myocardial Infarction 2002 Hx of cancer of lung chemo/radiation/surgery 2013 Vitamin D deficiency Vitamin B 12 deficiency Surgical History History of cataract surgery B/L, 10/30/22 and 11/13/22 History of tooth extraction History of heart artery stent 2002>1 stent placed at [facility] History of removal of Port-a-Cath A-port for chemo in past History of lobectomy of lung rt upper lung History of bronchoscopy History of esophagogastroduodenoscopy (EGD) History of colonoscopy History of surgery on arm left bicep tendon repair Hx of left inguinal hernia repair Hx of hand surgery right index finger from accident History of stent insertion of renal artery left H/O right inguinal hernia repair H/O total knee replacement rt/left H/O lumbosacral spine surgery Family History Father Myocardial infarction Mother Myocardial infarction Brother Myocardial infarction Sister Myocardial infarction Other Lung cancer No family history of adverse response to anesthesia Denies family history of Sudden Ovarian cancer Prostate cancer Dyslipidemia Breast cancer Colorectal cancer Social History Smoking Status: Former smoker Tobacco Type: Cigarettes and Cigars Age Started Using Tobacco: 15; Age Quit Using Tobacco: 52; packs per day: 1; Cigarettes Per Day: quit 2002; Second Hand Exposure: Yes (as a child); Do You Dip or Chew Tobacco: No; Hx Alcohol Use: Yes Alcohol type: beer Alcohol Intake Frequency: 4 or More x per/Week Alcohol Intake Frequency Comment: 1 drink per day Hx Substance Use: No Preferred Language: Trinidadian Communication Ability: Effective Visual Impairment: Limited Hearing Ability: Normal Archives Specialist Required: No Beliefs That Will Affect Care: None marital status: Current Living Situation: Alone current occupational status: retired current occupation: used to work as [employer] How many Children do You have: 0 Other Information That Helps Us Care for You: No Feels Safe at Home: Yes Safety Concerns: Feels Safe At This Time Childhood Exposure to Second-Hand Smoke: Yes Diet: regular caffeine: Yes during the past year weight has: remained stable Dental Care, Regularly: No Physical Activity Frequency: 3-4 Times per Week Seatbelt Use: always Sunscreen Use: Yes Assistive Devices: Denture - Upper, Denture - Lower and Walker Allergies Allergies Allergy/AdvReac Type Severity Reaction Status Date / Time NSAIDS (Non-Steroidal AdvReac Unknown REDUCES Verified 05/28/24 16:00 Anti-Inflamma KIDNEY FUNCTION Home Meds Home Medications Medication Instructions Recorded Confirmed aspirin 81 mg tablet,delayed 81 mg PO DAILY 10/22/21 05/28/24 release multivitamin 1 tab PO QAM 07/24/23 05/28/24 gabapentin 800 mg tablet 800 mg PO HS 05/28/24 05/28/24 metoprolol tartrate 50 mg tablet 50 mg PO DAILY 05/28/24 05/28/24 theophylline 300 mg 150 mg PO DAILY Shortness Of Breath 05/28/24 05/28/24 tablet,extended release,12 hr Previous Rx's Medication Instructions Recorded nitroglycerin 0.4 mg sublingual 0.4 mg sublingual Q5M PRN chest 04/14/24 tablet (Nitrostat) pain #25 tabs sertraline 25 mg tablet 25 mg PO QAM #30 tabs 04/14/24 gabapentin 300 mg capsule 300 mg PO BID@0900,1400 #60 caps 04/23/24 Results & Data (ED) Vital Signs Vital Signs - 24 hr 05/28/24 12:57 05/28/24 13:37 05/28/24 14:00 Temperature 37.6 C H Temperature Source Oral Pulse Rate 75 Pulse Rate [Apical] 80 Pulse Rate from SpO2 Sensor Pulse Rhythm Regular Pulse Rhythm [Apical] Regular Pulse Strength Normal Pulse Strength [Apical] Normal Respiratory Rate 18 20 Respiratory Effort / Characteristics Non-Labored Spontaneous Non-Labored Respiratory Depth Normal Normal Respiratory Pattern Regular Blood Pressure 166/93 H Blood Pressure [Left Arm] 175/101 H Blood Pressure Mean 117 Blood Pressure Mean [Left Arm] 125 Blood Pressure Position Lying Pulse Oximetry 97 97 Oxygen Delivery Method Room Air Room Air Room Air Sepsis Recent Fever Within 48 Hours Yes Sepsis New/Unexplained Change in Mental Status No Sepsis Action Taken by Nursing No Action Required 05/28/24 15:00 05/28/24 15:31 05/28/24 16:00 Temperature Temperature Source Pulse Rate 80 Pulse Rate [Apical] 85 Pulse Rate from SpO2 Sensor Pulse Rhythm Pulse Rhythm [Apical] Regular Pulse Strength Pulse Strength [Apical] Normal Respiratory Rate 18 23 Respiratory Effort / Characteristics Non-Labored Respiratory Depth Normal Respiratory Pattern Blood Pressure 161/99 H 153/102 H Blood Pressure [Left Arm] 169/88 H Blood Pressure Mean 115 119 Blood Pressure Mean [Left Arm] 115 Blood Pressure Position Pulse Oximetry 98 Oxygen Delivery Method Room Air Sepsis Recent Fever Within 48 Hours Sepsis New/Unexplained Change in Mental Status Sepsis Action Taken by Nursing 05/28/24 16:01 05/28/24 16:30 05/28/24 17:27 Temperature Temperature Source Pulse Rate 78 80 85 Pulse Rate [Apical] Pulse Rate from SpO2 Sensor 88 Pulse Rhythm Pulse Rhythm [Apical] Pulse Strength Pulse Strength [Apical] Respiratory Rate 21 20 Respiratory Effort / Characteristics Respiratory Depth Respiratory Pattern Blood Pressure 167/91 H 176/95 H Blood Pressure [Left Arm] Blood Pressure Mean 116 122 Blood Pressure Mean [Left Arm] Blood Pressure Position Pulse Oximetry 93 Oxygen Delivery Method Sepsis Recent Fever Within 48 Hours Sepsis New/Unexplained Change in Mental Status Sepsis Action Taken by [facility] Medications Current Medication List: was personally reviewed by me Laboratory Data Attestation: I reviewed the patient's lab results. 05/29/24 05:52 05/29/24 05:52 Lab Results 05/28/24 05/28/24 Range/Units 13:27 15:13 WBC 12.30 H (4.8-10.8) K/ul RBC 4.00 L (4.70-6.10) M/uL Hgb 14.2 (14.0-18.0) g/dl Hct 40.8 L (42.0-52.0) % MCV 102.0 H (80.0-100.0) fL MCH 35.5 H (25.0-34.0) pg MCHC 34.8 (32.0-36.0) g/dL RDW Std Deviation 52.7 H (36.4-46.3) fL RDW Coeff of Daniel 13.9 (11.5-14.5) % Plt Count 183 (130-400) K/uL MPV 9.5 (9.4-12.4) fL Immature Gran % (Auto) 0.2 % Neut % (Auto) 92.0 % Lymph % (Auto) 2.2 % [place] % (Auto) 5.4 % Eos % (Auto) 0.0 % Baso % (Auto) 0.2 % Neut # (Auto) 11.32 H (1.40-6.50) K/uL Lymph # (Auto) 0.27 L (1.20-3.40) K/uL [place] # (Auto) 0.66 H (0.11-0.59) K/uL Eos # (Auto) 0.00 (0.00-0.50) K/uL Baso # (Auto) 0.02 (0.00-0.20) K/uL Immature Gran # (Auto) 0.03 (0.01-0.20) K/uL Sodium 141 (136-145) mmol/L Potassium 4.0 (3.5-5.1) mmol/L Chloride 104 (98-107) mmol/L Carbon Dioxide 26 (21-32) mmol/L Anion Gap 11 (3-11) BUN 25 H (6-23) mg/dl Creatinine 1.13 (0.6-1.4) mg/dl Est Cr Clr Drug Dosing Not Reportable eGFR 68.20 BUN/Creatinine Ratio 22.1 H (10-20) Glucose 118 H (70-99(Fasting)) mg/dl Calcium 9.6 (8.6-10.3) mg/dl Magnesium 1.5 L (1.7-2.4) mg/dl Total Bilirubin 0.8 (0.2-1.0) mg/dl AST 85 H (13-39) U/L ALT 31 (7-52) U/L Alkaline Phosphatase 106 H (34-104) U/L Total Creatine Kinase 3261 H (30-223) U/L Troponin I High Sens 60.7 H* 77.5 H* D (0-20) pg/ml C-Reactive Protein 1.44 H (0-0.5) mg/dl Total Protein 7.4 (6.0-8.3) gm/dl Albumin 4.7 (3.4-5.0) gm/dl Globulin 2.7 (2.5-4.0) gm/dl Albumin/Globulin Ratio 1.7 (0.9-2) Lipase 28 (11-82) U/L Procalcitonin 0.41 (0-0.5) ng/ml Administered Medications Gabapentin (Gabapentin 800 Mg Tab) 800 mg PO HS ARTURO Stop: 06/27/24 20:59 Last Admin: 05/28/24 22:05 Dose: 800 mg Documented By: Ceftriaxone Sodium (Rocephin) 2,000 mg in 50 mls @ 100 mls/hr IV Q24H ARTURO Stop: 06/04/24 20:59 Last Infusion: 05/28/24 22:03 Dose: Infused Documented By: Admin: 05/28/24 21:25 Dose: 100 mls/hr Documented By: Discontinued Medications Sodium Chloride (Nss) 1,000 mls @ 999 mls/hr IV .Q1H1M ONE Stop: 05/28/24 21:57 Last Infusion: 05/28/24 23:49 Dose: Infused Documented By: Admin: 05/28/24 21:25 Dose: 999 mls/hr Documented By: Magnesium Sulfate/Dextrose (Magnesium Sulfate / D5w) 1 gm in 100 mls @ 50 mls/hr IV Q2H ARTURO Stop: 05/29/24 00:59 Last Infusion: 05/29/24 02:53 Dose: Infused Documented By: Admin: 05/29/24 00:23 Dose: 50 mls/hr Documented By: Infusion: 05/29/24 00:05 Dose: Infused Documented By: Admin: 05/28/24 22:05 Dose: 50 mls/hr Documented By: Parenteral Electrolytes (Plasma-Lyte A Ph 7.4) 1,000 mls @ 125 mls/hr IV .Q8H ARTURO Stop: 05/29/24 12:59 Last Admin: 05/28/24 23:41 Dose: 125 mls/hr Documented By: CRUZITO Ioversol (Optiray 320 100ml) 90 ml IV ONCE ONE Stop: 05/28/24 17:11 Last Admin: 05/28/24 17:11 Dose: 90 ml Documented By: DAX Imaging Data Attestation: I personally reviewed and interpreted this imaging study as follows: My Impression: 1 view chest x-ray was obtained in the emergency department. My interpretation is no free air or definite infiltrate, final report below. CT of the brain was obtained in the emergency department. My interpretation is no intracranial hemorrhage or mass effect, final report below. Radiologist's Impression: Chest X-Ray 05/28/24 14:00 XR chest 1V portable CLINICAL HISTORY: Chest pain, nonspecific COMPARISON STUDY: 03/31/2024 FINDINGS: Stable mild cardiomegaly without pulmonary vascular congestion. Stable operative changes at the upper right hemithorax. Stable opacity at the right lung base consistent with the right pleural effusion and associated stranding consolidation at the right base on the chest CT of 03/30/2024. No new consolidation or pleural effusion. No pneumothorax. No acute osseous findings. IMPRESSION: Stable exam. ACT 112: Negative or not required by law. Electronically signed by: Eric Mercado M.D. 05/28/2024 2:[address] 05/28/24 14:00 CT facial bones wo con CLINICAL HISTORY: 73 years-old Male presenting with left sided swellking. Acute left-sided facial pain and swelling COMPARISON STUDY: Head CT of same day and also 03/30/2024 TECHNIQUE: High-resolution CT scan of the facial bones is performed. Images are reviewed in the axial, sagittal, and coronal planes. IV contrast was not administered for this examination. A dose lowering technique was utilized adhering to the principles of ALARA. CT DOSE: 765.66 mGy.cm FINDINGS: Head CT dictated separately. Atherosclerotic plaque of the carotid bulbs. Prior bilateral lens repair. There is mild left periorbital and left cheek subcutaneous edema. No discrete fluid collection or mass. Mild mucosal thickening of the paranasal sinuses. Mastoid air cells are clear. No acute calvarial or facial bone fracture identified. Patient is edentulous. Multilevel degenerative changes of the cervical spine which appeared advanced. IMPRESSION: 1. No acute facial bone fracture. 2. Left periorbital and left cheek subcutaneous edema. ACT 112: Negative or not required by law. The above report was generated using voice recognition software. It may contain grammatical, syntax or spelling errors. Electronically signed by: Godfrey Grande M.D. 05/28/2024 3:[address] 05/28/24 14:01 CT head/brain wo con CLINICAL HISTORY: swelling Technique: Contiguous axial CT images of the head were acquired from the base of the skull to the vertex without intravenous contrast administration. Images were viewed in brain, subdural and bone windows. Automated dose lowering techniques and/or adjustment according to patient size were utilized for this exam. Comparison: Comparison is made to CT head 03/30/2024 Findings: Areas of decreased attenuation are present in the periventricular and subcortical white matter bilaterally consistent with small vessel ischemic disease. Generalized cerebral atrophy with commensurate enlargement of the ventricles, sulci, and cisterns is also present. There is no acute intracranial hemorrhage or evidence of acute territorial infarction. No shift of the midline structures, mass effect, or extra-axial abnormalities are shown. Atherosclerotic calcifications are present in the intracranial segments of the internal carotid arteries. Imaged portions of the paranasal sinuses and mastoid air cells are clear. The orbits appear normal. There are no acute fractures of the calvaria or scalp swelling. Soft tissue swelling is seen in the left periorbital regions. Impression: 1. No acute intracranial hemorrhage, no evidence of acute territorial infarction or other acute intracranial disease process. 2. Soft tissue swelling is in the left renal renal region. ACT 112: Negative or not required by law. Electronically signed by: Rocky Zeng M.D. 05/28/2024 3:09 PM Venous Doppler Study 05/28/24 16:44 EXAM: US Duplex Left Lower Extremity Veins INDICATION: TECHNIQUE: Real-time duplex ultrasound scan of the left lower extremity veins integrating B-mode two-dimensional vascular structure, Doppler spectral analysis, color flow Doppler imaging and compression. COMPARISON: No relevant prior studies available. FINDINGS: Deep veins: No DVT in the visualized common femoral, femoral or popliteal veins. The veins demonstrate normal color flow, are normally compressible, with normal phasic flow and/or augmentation response. Superficial veins: No abnormality noted. No thrombus in the visualized great saphenous vein. Soft tissues: Subcutaneous edema noted. No fluid collection. IMPRESSION: No deep venous thrombosis of the left lower extremity. ACT 112: Negative or not required by law. Electronically signed by Sara Vazquez 05-28-2024 6:11 PM Abdomen/Pelvis CT 05/28/24 16:50 EXAM: CT Chest Abdomen and Pelvis With Intravenous Contrast INDICATION: Trauma. TECHNIQUE: Axial computed tomography images of the chest, abdomen and pelvis with intravenous contrast. Sagittal and coronal reformatted images were created and reviewed. This CT exam was performed using one or more of the following dose reduction techniques: automated exposure control, adjustment of the mA and/or kV according to patient size, and/or use of iterative reconstruction technique. CONTRAST: 90ml of Optiray 320 was administered intravenously. COMPARISON: No relevant prior studies available. FINDINGS: Limitations: None. CHEST: Lungs and pleural spaces: There is an encapsulated right basilar pleural effusion measuring 6.8 cm in maximal AP diameter at the base. There is soft tissue scarring associated with multiple right posterior rib resection deformities. No pneumothorax. There is subpleural reticulation in both upper lobes. There is irregular small infiltrate in the right middle lobe and atelectasis in the left lower lobe. There is pleural-based irregular opacity in the posterior right upper lobe. Heart: No abnormality noted. Mediastinum: No abnormality noted. Thyroid: No abnormality noted. ABDOMEN: Liver: Normal size and contour. Hypodense typical of steatosis. No mass or ductal dilation. Gallbladder and bile ducts: No abnormality noted. No calcified stones. No ductal dilation. Pancreas: Homogeneous enhancement. No mass, inflammation or ductal dilation. Spleen: No significant abnormality noted. Adrenals: No significant abnormality noted. Kidneys and ureters: Simple bilateral renal cysts noted. No follow-up necessary. No stones or hydronephrosis. Stomach and bowel: Colonic diverticulosis without diverticulitis. No intestinal thickening or obstruction. Moderate formed stool in the rectal vault. No obstruction. No inflammatory change or thickening. PELVIS: Appendix: No findings to suggest acute appendicitis. Bladder: Incompletely distended and not optimally assessed. No gas or stone. Reproductive: No significant abnormality noted. CHEST, ABDOMEN and PELVIS: Intraperitoneal space: No free air. No significant fluid collection. Retroperitoneal space: No abnormality noted. No fluid collection. Bones/joints: Scoliotic thoracic spine with multilevel mild to moderate degenerative changes. There are multiple right proximal rib resections. There is intact posterior L4-L5 fusion hardware. Multilevel moderate to severe lumbar degenerative changes noted with multilevel moderate to severe canal stenosis most notable at L2-L3. Degenerative changes noted along the right lateral acetabular roof. Chronic right proximal rib resections with soft tissue density typical of scarring. There is no measurable or defined mass. Correlate clinically. Soft tissues: No significant abnormality noted. Vasculature: No abnormality noted. No aortic aneurysm. Lymph nodes: No enlarged lymph nodes. IMPRESSION: Loculated right basilar pleural effusion. No traumatic change of the aorta or solid intra-abdominal or pelvic organs. ACT 112: Negative or not required by law. Electronically signed by Sara Vazquez 05-28-2024 6:[address] 05/28/24 16:50 EXAM: CT Chest Abdomen and Pelvis With Intravenous Contrast INDICATION: Trauma. TECHNIQUE: Axial computed tomography images of the chest, abdomen and pelvis with intravenous contrast. Sagittal and coronal reformatted images were created and reviewed. This CT exam was performed using one or more of the following dose reduction techniques: automated exposure control, adjustment of the mA and/or kV according to patient size, and/or use of iterative reconstruction technique. CONTRAST: 90ml of Optiray 320 was administered intravenously. COMPARISON: No relevant prior studies available. FINDINGS: Limitations: None. CHEST: Lungs and pleural spaces: There is an encapsulated right basilar pleural effusion measuring 6.8 cm in maximal AP diameter at the base. There is soft tissue scarring associated with multiple right posterior rib resection deformities. No pneumothorax. There is subpleural reticulation in both upper lobes. There is irregular small infiltrate in the right middle lobe and atelectasis in the left lower lobe. There is pleural-based irregular opacity in the posterior right upper lobe. Heart: No abnormality noted. Mediastinum: No abnormality noted. Thyroid: No abnormality noted. ABDOMEN: Liver: Normal size and contour. Hypodense typical of steatosis. No mass or ductal dilation. Gallbladder and bile ducts: No abnormality noted. No calcified stones. No ductal dilation. Pancreas: Homogeneous enhancement. No mass, inflammation or ductal dilation. Spleen: No significant abnormality noted. Adrenals: No significant abnormality noted. Kidneys and ureters: Simple bilateral renal cysts noted. No follow-up necessary. No stones or hydronephrosis. Stomach and bowel: Colonic diverticulosis without diverticulitis. No intestinal thickening or obstruction. Moderate formed stool in the rectal vault. No obstruction. No inflammatory change or thickening. PELVIS: Appendix: No findings to suggest acute appendicitis. Bladder: Incompletely distended and not optimally assessed. No gas or stone. Reproductive: No significant abnormality noted. CHEST, ABDOMEN and PELVIS: Intraperitoneal space: No free air. No significant fluid collection. Retroperitoneal space: No abnormality noted. No fluid collection. Bones/joints: Scoliotic thoracic spine with multilevel mild to moderate degenerative changes. There are multiple right proximal rib resections. There is intact posterior L4-L5 fusion hardware. Multilevel moderate to severe lumbar degenerative changes noted with multilevel moderate to severe canal stenosis most notable at L2-L3. Degenerative changes noted along the right lateral acetabular roof. Chronic right proximal rib resections with soft tissue density typical of scarring. There is no measurable or defined mass. Correlate clinically. Soft tissues: No significant abnormality noted. Vasculature: No abnormality noted. No aortic aneurysm. Lymph nodes: No enlarged lymph nodes. IMPRESSION: Loculated right basilar pleural effusion. No traumatic change of the aorta or solid intra-abdominal or pelvic organs. ACT 112: Negative or not required by law. Electronically signed by Sara Vazquez 05-28-2024 6:[address] 05/28/24 16:58 EXAM: CT Cervical Spine Without Intravenous Contrast INDICATION: Trauma. TECHNIQUE: Axial computed tomography images of the cervical spine without intravenous contrast. Sagittal and coronal reformatted images were created and reviewed. This CT exam was performed using one or more of the following dose reduction techniques: automated exposure control, adjustment of the mA and/or kV according to patient size, and/or use of iterative reconstruction technique. COMPARISON: No relevant prior studies available. FINDINGS: Limitations: None. Vertebrae: Reversal of the normal cervical curvature noted. There is diffuse moderate to severe hypertrophic change of the facets, spondylosis and uncal spurring. Endplate subchondral cystic change noted at multiple levels. There is grade 1 degenerative anterolisthesis of C3 on C4. No acute fracture noted. Chronic deformity posterior right first and second ribs. Discs/spinal canal/neural foramina: Diffuse moderate to severe disc space degeneration with multilevel mild canal stenosis. There is moderate to severe foraminal stenosis C3-C7. Soft tissues: There is soft tissue thickening in the right lung apex and supraclavicular soft tissues inferior to the deformed right ribs. There is no measurable mass. No fluid collection. Thyroid: Right thyroidectomy. The left appears normal. Lung apices: There is partially imaged scarring in the right lung apex. IMPRESSION: 1. Multilevel moderate to severe degenerative changes. No cervical fracture. 2. Chronic deformity of the right first and second ribs with associated soft tissue thickening likely related to scarring. Correlate clinically. ACT 112: Negative or not required by law. Electronically signed by Sara Vazquez 05-28-2024 6:05 PM Humerus X-Ray 05/28/24 16:59 EXAM: Radiographs of the Left Humerus 2 Views INDICATION: Bruising. TECHNIQUE: Frontal and lateral views of the left humerus. COMPARISON: No relevant prior studies available. FINDINGS: Limitations: None. Bones/joints: No fracture, erosion or dislocation. Soft tissues: No abnormality noted. No radiopaque foreign body noted. Tubes, lines and devices: IV catheter antecubital fossa. No soft tissue gas. IMPRESSION: No significant abnormality of the left humerus. ACT 112: Negative or not required by law. Electronically signed by Sara Vazquez 05-28-2024 6:05 PM Discharge Plan Visit Data Chief Complaint: Facial Injury/Pain Stated Complaint: SWELLING TO [facility] ED Provider: Derek Morse Discharge Problem: Pedal edema, Weakness, Swelling of left lower extremity, Periorbital edema of left eye, Elevated troponin I level Patient Disposition: Admitted As Inpatient Discharge Instructions Interventions: ED Discharge Assessment Last Done: 05/28/24 20:22
--- NOTE | 2024-05-28 14:42 | XRay Report ---
XR chest 1V portable CLINICAL HISTORY: Chest pain, nonspecific COMPARISON STUDY: 03/31/2024 FINDINGS: Stable mild cardiomegaly without pulmonary vascular congestion. Stable operative changes at the upper right hemithorax. Stable opacity at the right lung base consistent with the right pleural effusion and associated stranding consolidation at the right base on the chest CT of 03/30/2024. No n ew consolidation or pleural effusion. No pneumothorax. No acute osseous findings. IMPRESSION: Stable exam. ACT 112: Negative or not required by law. Electronically signed by: Eric Mercado M.D. 05/28/2024 2:41 PM
[2024-05-28 14:52] LABS: Troponin I High Sensitivity 60.7 pg/ml (0-20)
[2024-05-28 15:04] LABS: Lipase 28 U/L (11-82)
--- NOTE | 2024-05-28 15:10 | CT Scan Report ---
CT head/brain wo con CLINICAL HISTORY: swelling Technique: Contiguous axial CT images of the head were acquired from the base of the skull to the sharron stanley without intravenous contrast administration. Images were viewed in brain, subdural and bone [facility] . Automated dose lowering techniques and/or adjustment according to patient size were utilized for this exam. Comparison: Comparison is made to CT head 03/30/2024 Findings: Areas of decreased attenuation are present in the periventricular and subcortical white matter bilate rally consistent with small vessel ischemic disease. Generalized cerebral atrophy with commensurate e nlargement of the ventricles, sulci, and cisterns is also present. There is no acute intracranial hem orrhage or evidence of acute territorial infarction. No shift of the midline structures, mass effect, or extra-axial abnormalities are shown. Atherosclerotic calcifications are present in the intracran ial segments of the internal carotid arteries. Imaged portions of the paranasal sinuses and mastoid air cells are clear. The orbits appear normal. There are no acute fractures of the calvaria or scalp swelling. Soft tissue swelling is seen in the l eft periorbital regions. Impression: 1. No acute intracranial hemorrhage, no evidence of acute territorial infarction or other acute intr acranial disease process. 2. Soft tissue swelling is in the left renal renal region. ACT 112: Negative or not required by law. Electronically signed by: Rocky Zeng M.D. 05/28/2024 3:09 PM
--- NOTE | 2024-05-28 15:16 | CT Scan Report ---
CT facial bones wo con CLINICAL HISTORY: 73 years-old Male presenting with left sided swellking. Acute left-sided facial yung n and swelling COMPARISON STUDY: Head CT of same day and also 03/30/2024 TECHNIQUE: High-resolution CT scan of the facial bones is performed. Images are reviewed in the axia l, sagittal, and coronal planes. IV contrast was not administered for this examination. A dose lower ing technique was utilized adhering to the principles of ALARA. CT DOSE: 765.66 mGy.cm FINDINGS: Head CT dictated separately. Atherosclerotic plaque of the carotid bulbs. Prior bilateral lens repair . There is mild left periorbital and left cheek subcutaneous edema. No discrete fluid collection or m ass. Mild mucosal thickening of the paranasal sinuses. Mastoid air cells are clear. No acute calvaria l or facial bone fracture identified. Patient is edentulous. Multilevel degenerative changes of the c ervical spine which appeared advanced. IMPRESSION: 1. No acute facial bone fracture. 2. Left periorbital and left cheek subcutaneous edema. ACT 112: Negative or not required by law. The above report was generated using voice recognition software. It may contain grammatical, syntax o r spelling errors. Electronically signed by: Godfrey Grande M.D. 05/28/2024 3:15 PM
--- NOTE | 2024-05-28 16:47 | History & Physical Report ---
Date of Service May 28, 2024 Assessment & Plan (1) Rhabdomyolysis: Plan: Unclear how long he hasn't been moving for Last seen by brother on Friday Presentation similar to April admission IV fluids, repeat CK with AM labs (2) Acute encephalopathy: Plan: Brother notes patient off his baseline without any explanation for his injuries - similar to presentation in April CT head without intracranial abnormality Will continue gabapentin for now due to peripheral neuropathy however this is a new medication from last admission and may have to be stopped if encephalopathy continues If ongoing consider brain MRI (3) Periorbital edema of left eye: Plan: Cover for periorbital cellulitis with IV ceftriaxone and continue to monitor for improvement Possible just dependant left sided edema from lying on this side Follow up blood cultures (4) Friction burn: Plan: Unclear cause but suspect he has been crawling around at home. Wound care consult. CT chest/abdomen/pelvis and cervical spine ordered given friction waller over abdomen without any explanation Does not appear to be fit to return home at this time (5) Hypomagnesemia: Plan: Mg sulfate 2g IV and repeat levels in AM (6) Elevated troponin: Plan: No chest pain or shortness of breath to suggest ACS No ischemic changes on EKG Continue to trend (7) Pedal edema: Plan: Left > right sided although this was also noted in April with ?lymphedema from prior inguinal hernia on this side Likely moving around less at home US venous doppler to assess for DVT (8) Cellulitis: Plan VTE Prophylaxis - Lovenox 40mg SQ daily Diet - regular Disposition - admit to med/surg Admission and Anticipated Discharge Date Admission Date: May 29, 2024 History of Present Illness Chief Complaint: Left facial swelling Primary Care Provider: Kendra Gipson MD Adalberto Dunbar is a 73 year old male who presents to the ER with left facial swelling. He reports waking up with this in the morning. He has no explanation for the injuries to his left upper arm, abdomen and lower extremity. He was seen with his brother in the room who feels he is off his baseline and confused. No one sided weakness, change in speech hearing or vision. The patient lives by himself and was found by his brother this morning and unable to get up out of his recliner therefore brought him to the ER. No fever, chills, respiratory, gastrointestinal or urinary symptoms. Of note he was admitted in April with generalized weakness and associated falls. He had bilateral left > right sided edema at that time and was eventually discharged to rehabilitation. Allergies Allergy/AdvReac Type Severity Reaction Status Date / Time NSAIDS (Non-Steroidal AdvReac Unknown REDUCES Verified 05/28/24 16:00 Anti-Inflamma KIDNEY FUNCTION Home Medications Medication Instructions Recorded Confirmed Type aspirin 81 mg tablet,delayed 81 mg PO DAILY 10/22/21 05/28/24 History release multivitamin 1 tab PO QAM 07/24/23 05/28/24 History nitroglycerin 0.4 mg sublingual 0.4 mg sublingual Q5M PRN chest 04/14/24 05/28/24 Rx tablet (Nitrostat) pain #25 tabs sertraline 25 mg tablet 25 mg PO QAM #30 tabs 04/14/24 05/28/24 Rx gabapentin 300 mg capsule 300 mg PO BID@0900,1400 #60 caps 04/23/24 05/28/24 Rx gabapentin 800 mg tablet 800 mg PO HS 05/28/24 05/28/24 History metoprolol tartrate 50 mg tablet 50 mg PO DAILY 05/28/24 05/28/24 History theophylline 300 mg 150 mg PO DAILY Shortness Of Breath 05/28/24 05/28/24 History tablet,extended release,12 hr Past Med/Surg History Problem List (Updated 05/29/24 @ 06:38 by Zackery Montaño MD) Elevated troponin Acute encephalopathy Friction burn Periorbital edema of left eye (Acute) Pedal edema (Acute) Anemia (Acute) Pleural effusion Elevated LFTs Rhabdomyolysis Cellulitis (Acute) Hypomagnesemia (Acute) Abdominal wall contusion (Acute) Chest wall contusion (Acute) Fall (Acute) Weakness (Acute) Swelling of left lower extremity (Acute) Stasis dermatitis Weakness Adjacent segment disease of lumbar spine with history of fusion procedure Foraminal stenosis of lumbosacral region History of fusion of lumbar spine Foot drop, right Spondylolisthesis Degenerative lumbar spinal stenosis Degenerative disc disease Lesion of left [place] kidney Microscopic hematuria Abdominal aortic ectasia (Chronic) 2.9 cm 12/18/22 Hypertension (Chronic) Anxiety (Chronic) History of colon polyps Rupture of right distal biceps tendon Tubular adenoma of colon (Chronic) Peripheral vascular disease (Chronic) History of gout (Chronic) Former smoker (Chronic) Diverticulosis (Chronic) Stage 3b chronic kidney disease (Chronic) follows with Dr. Diaz Hypercholesterolemia (Chronic) Dropfoot (Chronic) left Impaired fasting blood sugar (Chronic) Coronary artery disease (Chronic) LAD stent 2002 > follows with Dr. 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 Status post completion of combined radiation and chemotherapy radiation completed 05/18/2013 received 6000 cGy status post mediastinoscopy, right posterior lateral thoracotomy, right intracostal flap mobilization with coverage of the bronchial stump and mediastinal lymphadenectomy 07/08/2013 Stage [id number] GERD (gastroesophageal reflux disease) (Chronic) Chronic obstructive pulmonary disease (Chronic) Carotid artery plaque (Chronic) Medical History Biceps tendon tear rt arm (limb restriction) Myocardial Infarction 2002 Hx of cancer of lung chemo/radiation/surgery 2013 Vitamin D deficiency Vitamin B 12 deficiency Surgical History History of cataract surgery B/L, 10/30/22 and 11/13/22 History of tooth extraction History of heart artery stent 2002>1 stent placed at [facility] History of removal of Port-a-Cath A-port for chemo in past History of lobectomy of lung rt upper lung History of bronchoscopy History of esophagogastroduodenoscopy (EGD) History of colonoscopy History of surgery on arm left bicep tendon repair Hx of left inguinal hernia repair Hx of hand surgery right index finger from accident History of stent insertion of renal artery left H/O right inguinal hernia repair H/O total knee replacement rt/left H/O lumbosacral spine surgery Family History Father Myocardial infarction Mother Myocardial infarction Brother Myocardial infarction Sister Myocardial infarction Other Lung cancer No family history of adverse response to anesthesia Denies family history of Sudden Ovarian cancer Prostate cancer Dyslipidemia Breast cancer Colorectal cancer Social History Smoking Status: Former smoker Tobacco Type: Cigarettes and Cigars Age Started Using Tobacco: 15; Age Quit Using Tobacco: 52; packs per day: 1; Cigarettes Per Day: quit 2002; Second Hand Exposure: Yes (as a child); Do You Dip or Chew Tobacco: No; Hx Alcohol Use: Yes Alcohol type: beer Alcohol Intake Frequency: 4 or More x per/Week Alcohol Intake Frequency Comment: 1 drink per day Hx Substance Use: No Preferred Language: Faroese Communication Ability: Effective Visual Impairment: Limited Hearing Ability: Normal Hand Washer Required: No Beliefs That Will Affect Care: None marital status: Current Living Situation: Alone current occupational status: retired current occupation: used to work as [employer] How many Children do You have: 0 Other Information That Helps Us Care for You: No Feels Safe at Home: Yes Safety Concerns: Feels Safe At This Time Childhood Exposure to Second-Hand Smoke: Yes Diet: regular caffeine: Yes during the past year weight has: remained stable Dental Care, Regularly: No Physical Activity Frequency: 3-4 Times per Week Seatbelt Use: always Sunscreen Use: Yes Assistive Devices: Denture - Upper, Denture - Lower and Walker Review of Systems 2 Review of Systems: All systems reviewed & are unremarkable except as noted in HPI & below Physical Exam 2 Constitutional: well developed; + not well nourished and no acute distress Eyes: PERRL, conjunctivae normal, anicteric sclerae ENMT: external ear and nose normal, oropharynx normal Respiratory: normal respiratory effort, lungs clear to auscultation Cardiovascular: Rate/Rhythm: regular rate and regular rhythm Heart Sounds: no murmur Extremities: + pedal edema (bilateral left > right sided) Gastrointestinal (Abdomen): normal bowel sounds, soft, nontender, no hepatosplenomegaly Neurologic: moves all extremities, + focal motor deficit (bilateral foot drop (previously noted)), awake and + confused Speech / Cognition: normal speech Motor/Sensory: no pronator drift Cranial Nerves: PERRL, EOM intact bilaterally (no diplopia), normal facial strength, able to rotate head bilaterally, able to elevate shoulders bilaterally, no nystagmus and symmetric palate elevation Periorbital Left eye erythema and swelling Friction waller noted on bilateral knees and down left lower leg with erythema warmth and swelling of left leg Friction burn noted on upper abdomen bilaterally but greater on left side Ecchymosis of lef cabrera arm Psychiatric: Orientation: alert, oriented to person and oriented to place; + not oriented to time Results & Data Results & Data Vital Signs (Past 12 Hours) Vital Signs Temp Pulse Pulse Resp BP BP Pulse Ox 05/28/24 16:01 78 05/28/24 15:00 85 18 169/88 H 98 05/28/24 14:00 05/28/24 13:37 80 20 175/101 H 97 05/28/24 12:57 37.6 C H 75 18 166/93 H 97 O2 Del Method 05/28/24 16:01 05/28/24 15:00 Room Air 05/28/24 14:00 Room Air 05/28/24 13:37 Room Air 05/28/24 12:57 Room Air Diagnostic Findings CT head/brain wo con CLINICAL HISTORY: swelling Technique: Contiguous axial CT images of the head were acquired from the base of the skull to the vertex without intravenous contrast administration. Images were viewed in brain, subdural and bone windows. Automated dose lowering techniques and/or adjustment according to patient size were utilized for this exam. Comparison: Comparison is made to CT head 03/30/2024 Findings: Areas of decreased attenuation are present in the periventricular and subcortical white matter bilaterally consistent with small vessel ischemic disease. Generalized cerebral atrophy with commensurate enlargement of the ventricles, sulci, and cisterns is also present. There is no acute intracranial hemorrhage or evidence of acute territorial infarction. No shift of the midline structures, mass effect, or extra-axial abnormalities are shown. Atherosclerotic calcifications are present in the intracranial segments of the internal carotid arteries. Imaged portions of the paranasal sinuses and mastoid air cells are clear. The orbits appear normal. There are no acute fractures of the calvaria or scalp swelling. Soft tissue swelling is seen in the left periorbital regions. Impression: 1. No acute intracranial hemorrhage, no evidence of acute territorial infarction or other acute intracranial disease process. 2. Soft tissue swelling is in the left renal renal region. CT facial bones wo con CLINICAL HISTORY: 73 years-old Male presenting with left sided swellking. Acute left-sided facial pain and swelling COMPARISON STUDY: Head CT of same day and also 03/30/2024 TECHNIQUE: High-resolution CT scan of the facial bones is performed. Images are reviewed in the axial, sagittal, and coronal planes. IV contrast was not administered for this examination. A dose lowering technique was utilized adhering to the principles of ALARA. CT DOSE: 765.66 mGy.cm FINDINGS: Head CT dictated separately. Atherosclerotic plaque of the carotid bulbs. Prior bilateral lens repair. There is mild left periorbital and left cheek subcutaneous edema. No discrete fluid collection or mass. Mild mucosal thickening of the paranasal sinuses. Mastoid air cells are clear. No acute calvarial or facial bone fracture identified. Patient is edentulous. Multilevel degenerative changes of the cervical spine which appeared advanced. IMPRESSION: 1. No acute facial bone fracture. 2. Left periorbital and left cheek subcutaneous edema. XR chest 1V portable CLINICAL HISTORY: Chest pain, nonspecific COMPARISON STUDY: 03/31/2024 FINDINGS: Stable mild cardiomegaly without pulmonary vascular congestion. Stable operative changes at the upper right hemithorax. Stable opacity at the right lung base consistent with the right pleural effusion and associated stranding consolidation at the right base on the chest CT of 03/30/2024. No new consolidation or pleural effusion. No pneumothorax. No acute osseous findings. IMPRESSION: Stable exam. Medications Administered ER Medications Given: None ECG Rate (beats per minute): 82 Rhythm: normal sinus Findings: + RBBB; no acute ischemic change Comparison ECG Date: from (April 02, 2024) Change: no significant change Code Status & VTE Plan Code Status Conditional code VTE Prophylaxis Plan VTE Prophylaxis will be ordered: Yes PG Care Time/CCT Total # of Minutes Spent Total Time Spent with Patient: Total time spent is greater than 50% in coordination of care (as documented) at patient's floor/unit and/or counseling patient: Coding Level of Care Code 63656 INT INP/OBS CARE 3/75MIN Diagnoses Rhabdomyolysis M62.82 Acute encephalopathy G93.40 Periorbital edema of left eye R60.0 Friction burn T30.0 Hypomagnesemia E83.42 Elevated troponin R79.89 Pedal edema R60.0 Cellulitis L03.119 Laterality: unspecified laterality Site of cellulitis: extremity Site of cellulitis of extremity: lower extremity (8) Cellulitis Laterality: unspecified laterality Site of cellulitis: extremity Site of cellulitis of extremity: lower extremity Qualified Code(s): L03.119 - Cellulitis of unspecified part of limb
[2024-05-28] MEDS: OPTIRAY 320 100ml IV ONE (17:11)
--- NOTE | 2024-05-28 17:25 | Electrocardiogram Report ---
Test Reason : Blood Pressure : */* mmHG Vent. Rate : 82 BPM Atrial Rate : 82 BPM P-R Int : 168 ms QRS Dur : 136 ms QT Int : 414 ms P-R-T Axes : 52 46 42 degrees QTcB Int : 483 ms Normal sinus rhythm Right bundle branch block Abnormal ECG When compared with ECG of 02-Apr-2024 08:58, No significant change was found Confirmed by Kevin Felix ([id number]) on 05/28/2024 5:24:47 PM Referred By: REFERRED SELF Confirmed By: Kevin Felix
[2024-05-28 17:54] LABS: Appearance Urine Clear (Clear); Bacteria Urine Automated None Seen (None Seen); Bilirubin Urine Negative (Negative); Blood Urine 3+ (Negative); Cast Urine Automated 0-2 /lpf (0-2); Color Urine Yellow; Epithelial Cell Urine Auto 0-2 /hpf (0-2); Glucose Urine UA Negative (Negative); Ketones Urine Negative (Negative); Leukocyte Esterase Urine Negative (Negative); Nitrite Urine Negative (Negative); Protein Urine 2+ (Negative); Specific Gravity Urine 1.016 (1.000-1.030); Urobilinogen Urine Negative (Negative); WBC Urine Automated 0-5 /hpf (0-5)
--- NOTE | 2024-05-28 18:05 | CT Scan Report ---
EXAM: CT Cervical Spine Without Intravenous Contrast INDICATION: Trauma. TECHNIQUE: Axial computed tomography images of the cervical spine without intravenous contrast. Sagittal and coronal reformatted images were created and reviewed. This CT exam was performed using one or more of the following dose reduction techniques: automated exposure control, adjustment of the mA and/or kV according to patient size, and/or use of iterative reconstruction technique. COMPARISON: No relevant prior studies available. FINDINGS: Limitations: None. Vertebrae: Reversal of the normal cervical curvature noted. There is diffuse moderate to severe hypertrophic change of the facets, spondylosis and uncal spurring. Endplate subchondral cystic change noted at multiple levels. There is grade 1 degenerative anterolisthesis of C3 on C4. No acute fracture noted. Chronic deformity posterior right first and second ribs. Discs/spinal canal/neural foramina: Diffuse moderate to severe disc space degeneration with multilevel mild canal stenosis. There is moderate to severe foraminal stenosis C3-C7. Soft tissues: There is soft tissue thickening in the right lung apex and supraclavicular soft tissues inferior to the deformed right ribs. There is no measurable mass. No fluid collection. Thyroid: Right thyroidectomy. The left appears normal. Lung apices: There is partially imaged scarring in the right lung apex. IMPRESSION: 1. Multilevel moderate to severe degenerative changes. No cervical fracture. 2. Chronic deformity of the right first and second ribs with associated soft tissue thickening likely related to scarring. Correlate clinically. ACT 112: Negative or not required by law. Electronically signed by Sara Vazquez 05-28-2024 6:05 PM
--- NOTE | 2024-05-28 18:05 | CT Scan Report ---
EXAM: CT Chest Abdomen and Pelvis With Intravenous Contrast INDICATION: Trauma. TECHNIQUE: Axial computed tomography images of the chest, abdomen and pelvis with intravenous contrast. Sagittal and coronal reformatted images were created and reviewed. This CT exam was performed using one or more of the following dose reduction techniques: automated exposure control, adjustment of the mA and/or kV according to patient size, and/or use of iterative reconstruction technique. CONTRAST: 90ml of Optiray 320 was administered intravenously. COMPARISON: No relevant prior studies available. FINDINGS: Limitations: None. CHEST: Lungs and pleural spaces: There is an encapsulated right basilar pleural effusion measuring 6.8 cm in maximal AP diameter at the base. There is soft tissue scarring associated with multiple right posterior rib resection deformities. No pneumothorax. There is subpleural reticulation in both upper lobes. There is irregular small infiltrate in the right middle lobe and atelectasis in the left lower lobe. There is pleural-based irregular opacity in the posterior right upper lobe. Heart: No abnormality noted. Mediastinum: No abnormality noted. Thyroid: No abnormality noted. ABDOMEN: Liver: Normal size and contour. Hypodense typical of steatosis. No mass or ductal dilation. Gallbladder and bile ducts: No abnormality noted. No calcified stones. No ductal dilation. Pancreas: Homogeneous enhancement. No mass, inflammation or ductal dilation. Spleen: No significant abnormality noted. Adrenals: No significant abnormality noted. Kidneys and ureters: Simple bilateral renal cysts noted. No follow-up necessary. No stones or hydronephrosis. Stomach and bowel: Colonic diverticulosis without diverticulitis. No intestinal thickening or obstruction. Moderate formed stool in the rectal vault. No obstruction. No inflammatory change or thickening. PELVIS: Appendix: No findings to suggest acute appendicitis. Bladder: Incompletely distended and not optimally assessed. No gas or stone. Reproductive: No significant abnormality noted. CHEST, ABDOMEN and PELVIS: Intraperitoneal space: No free air. No significant fluid collection. Retroperitoneal space: No abnormality noted. No fluid collection. Bones/joints: Scoliotic thoracic spine with multilevel mild to moderate degenerative changes. There are multiple right proximal rib resections. There is intact posterior L4-L5 fusion hardware. Multilevel moderate to severe lumbar degenerative changes noted with multilevel moderate to severe canal stenosis most notable at L2-L3. Degenerative changes noted along the right lateral acetabular roof. Chronic right proximal rib resections with soft tissue density typical of scarring. There is no measurable or defined mass. Correlate clinically. Soft tissues: No significant abnormality noted. Vasculature: No abnormality noted. No aortic aneurysm. Lymph nodes: No enlarged lymph nodes. IMPRESSION: Loculated right basilar pleural effusion. No traumatic change of the aorta or solid intra-abdominal or pelvic organs. ACT 112: Negative or not required by law. Electronically signed by Sara Vazquez 05-28-2024 6:05 PM
--- NOTE | 2024-05-28 18:05 | XRay Report ---
EXAM: Radiographs of the Left Humerus 2 Views INDICATION: Bruising. TECHNIQUE: Frontal and lateral views of the left humerus. COMPARISON: No relevant prior studies available. FINDINGS: Limitations: None. Bones/joints: No fracture, erosion or dislocation. Soft tissues: No abnormality noted. No radiopaque foreign body noted. Tubes, lines and devices: IV catheter antecubital fossa. No soft tissue gas. IMPRESSION: No significant abnormality of the left humerus. ACT 112: Negative or not required by law. Electronically signed by Sara Vazquez 05-28-2024 6:05 PM
--- NOTE | 2024-05-28 18:12 | Ultrasound Report ---
EXAM: US Duplex Left Lower Extremity Veins INDICATION: TECHNIQUE: Real-time duplex ultrasound scan of the left lower extremity veins integrating B-mode two-dimensional vascular structure, Doppler spectral analysis, color flow Doppler imaging and compression. COMPARISON: No relevant prior studies available. FINDINGS: Deep veins: No DVT in the visualized common femoral, femoral or popliteal veins. The veins demonstrate normal color flow, are normally compressible, with normal phasic flow and/or augmentation response. Superficial veins: No abnormality noted. No thrombus in the visualized great saphenous vein. Soft tissues: Subcutaneous edema noted. No fluid collection. IMPRESSION: No deep venous thrombosis of the left lower extremity. ACT 112: Negative or not required by law. Electronically signed by Sara Vazquez 05-28-2024 6:11 PM
[2024-05-28 18:16] LABS: Amphetamines+Metham, Urine Neg (Neg); Barbiturates, Urine Neg (Neg); Benzodiazepine, Urine Neg (Neg); Cocaine, Urine Neg (Neg); Fentanyl, Urine Neg (Neg); MDMA (Ecstacy), Urine Neg (Neg); Marijuana, Urine Neg (Neg); Methadone, Urine Neg (Neg); Opiate, Urine Neg (Neg); Phencyclidine, Urine Neg (Neg)
[2024-05-28 20:22] LABS: Magnesium 1.5 mg/dl (1.7-2.4)
[2024-05-28 20:46] LABS: Creatine Kinase 3261 U/L (30-223)
[2024-05-28] MEDS: cefTRIAXone SODIUM 2,000 MG/50 ML BAG IV SCH (21:25)
[2024-05-28] MEDS: SODIUM CHLORIDE 0.9% 1,000 ML IV ONE (21:25)
[2024-05-28] MEDS: MAGNESIUM SULFATE / D5W 1 GM/100 ML BAG IV SCH (22:05)
[2024-05-28] MEDS: GABAPENTIN 800 MG TAB PO SCH (22:05)
[2024-05-28 22:16] LABS: C Reactive Protein 1.44 mg/dl (0-0.5)
[2024-05-28] MEDS: PLASMA-LYTE A 1,000 ML IV SCH (23:41)
[2024-05-29 06:21] LABS: Basophils # (auto) 0.03 K/uL (0.00-0.20); Basophils % (auto) 0.5 %; Eosinophils # (auto) 0.04 K/uL (0.00-0.50); Eosinophils % (auto) 0.7 %; Hematocrit (blood only) 36.8 % (42.0-52.0); Hemoglobin 12.6 g/dl (14.0-18.0); Immature Granulocytes # (auto) 0.03 K/uL (0.01-0.20); Immature Granulocytes % (auto) 0.5 %; Lymphocytes # (auto) 0.73 K/uL (1.20-3.40); Lymphocytes % (auto) 11.9 %; Mean Corpuscular Hemoglobin 35.2 pg (25.0-34.0); Mean Corpuscular Hgb Conc 34.2 g/dL (32.0-36.0); Mean Corpuscular Volume 102.8 fL (80.0-100.0); Mean Platelet Volume 9.2 fL (9.4-12.4); Monocytes # (auto) 0.76 K/uL (0.11-0.59); Monocytes % (auto) 12.4 %; Neutrophils # (auto) 4.52 K/uL (1.40-6.50); Platelet Count 123 K/uL (130-400); RDW Coefficient of Variation 14.1 % (11.5-14.5); RDW Standard Deviation 53.7 fL (36.4-46.3); Red Blood Count 3.58 M/uL (4.70-6.10); White Blood Count 6.11 K/ul (4.8-10.8)
[2024-05-29 06:44] LABS: Albumin Globulin Ratio 1.7 (0.9-2); Albumin Level 3.6 gm/dl (3.4-5.0); BUN Creatinine Ratio 20.7 (10-20); Calcium 8.6 mg/dl (8.6-10.3); Creatinine Clr Calc Pharmacy 63.6 ml/min; Globulin 2.1 gm/dl (2.5-4.0); Total Protein 5.7 gm/dl (6.0-8.3); Troponin I High Sensitivity 86.6 pg/ml (0-20)
[2024-05-29] MEDS: POTASSIUM CHLORIDE 40 MEQ in SODIUM CHLORIDE 0.9% 1,000 ML IV SCH (08:58)
[2024-05-29] MEDS: ASPIRIN 81 MG ECTAB PO SCH (09:18)
[2024-05-29] MEDS: MULTIVITAMIN TAB PO SCH (09:18)
[2024-05-29] MEDS: METOPROLOL TARTRATE 50 MG TAB PO SCH (09:19)
[2024-05-29] MEDS: THEOPHYLLINE 300MG EXTENDED REL TAB PO SCH (09:19)
[2024-05-29] MEDS: SERTRALINE HCL 50 MG TABLET PO SCH (09:19)
[2024-05-29] MEDS: GABAPENTIN 300 MG CAP PO SCH (09:19)
--- NOTE | 2024-05-29 12:41 | Hospitalist Progress Note ---
Date of Service May 29, 2024 Assessment & Plan (1) Rhabdomyolysis: Plan: Unclear how long he hasn't been moving for Last seen by brother on Friday Presentation similar to April admission Continue IV fluids with potassium in it Check CPK Monitor BMP (2) Acute encephalopathy: Plan: Brother notes patient off his baseline without any explanation for his injuries - similar to presentation in April CT head without intracranial abnormality Will continue gabapentin for now due to peripheral neuropathy however this is a new medication from last admission Resolved Unclear etiology Could be related to periorbital cellulitis/infection (3) Periorbital edema of left eye: Plan: Cover for periorbital cellulitis with IV ceftriaxone and continue to monitor for improvement. Patient says that it is improved already Possible just dependant left sided edema from lying on this side Blood cultures negative so far (4) Friction burn: Plan: Unclear cause but suspect he has been crawling around at home. Wound care consult. CT chest/abdomen/pelvis and cervical spine ordered given friction waller over abdomen without any explanation Does not appear to be fit to return home at this time (5) Hypomagnesemia: Plan: Mg sulfate 2g IV and repeat levels in AM (6) Elevated troponin: Plan: No chest pain or shortness of breath to suggest ACS No ischemic changes on EKG Continue to trend Likely demand ischemia or related to rhabdomyolysis (7) Pedal edema: Plan: Left > right sided although this was also noted in April with ?lymphedema from prior inguinal hernia on this side Likely moving around less at home US venous doppler negative for DVT (8) Cellulitis: Plan VTE Prophylaxis - Lovenox 40mg SQ daily Diet - regular Disposition - admit to med/surg Awaiting PT and OT recommendations Admission and Anticipated Discharge Date Admission Date: May 28, 2024 Subjective Patient was seen and examined at 9:40 AM. He is now alert and oriented x 3. He does not remember what happened or where she came to the hospital. He was informed that his brother found him distraught and called 911 and brought him to the hospital. Review of Systems Review of Systems: All systems reviewed & are unremarkable except as noted in Subjective Physical Exam Physical Exam: General: Awake, conversant Heart: S1, S2/regular rate and rhythm, no murmur rubs or gallops Lungs: Clear to auscultation bilaterally. Normal effort Abdomen: Soft/nontender/nondistended. No hepatosplenomegaly Extremities: No clubbing/cyanosis. 1+ bilateral pitting edema Behavior: Appropriate, cooperative Results & Data Results & Data Vital Signs (Past 12 Hours) Vital Signs Temp Pulse Resp BP Pulse Ox O2 Del Method O2 Flow Rate 05/29/24 07:10 36.9 C 56 L 16 146/77 H 100 Nasal Cannula 2 Laboratory Results Abnormal lab results 05/28/24 05/28/24 05/28/24 Range/Units 13:27 15:13 23:11 WBC 12.30 H (4.8-10.8) K/ul RBC 4.00 L (4.70-6.10) M/uL Hgb (14.0-18.0) g/dl Hct 40.8 L (42.0-52.0) % MCV 102.0 H (80.0-100.0) fL MCH 35.5 H (25.0-34.0) pg RDW Std Deviation 52.7 H (36.4-46.3) fL Plt Count (130-400) K/uL MPV (9.4-12.4) fL Neut # (Auto) 11.32 H (1.40-6.50) K/uL Lymph # (Auto) 0.27 L (1.20-3.40) K/uL Grady # (Auto) 0.66 H (0.11-0.59) K/uL Potassium (3.5-5.1) mmol/L BUN 25 H (6-23) mg/dl BUN/Creatinine Ratio 22.1 H (10-20) Glucose 118 H (70-99(Fasting)) mg/dl Magnesium 1.5 L (1.7-2.4) mg/dl AST 85 H (13-39) U/L Alkaline Phosphatase 106 H (34-104) U/L Total Creatine Kinase 3261 H (30-223) U/L Troponin I High Sens 60.7 H* 77.5 H* D 122.8 H* D (0-20) pg/ml C-Reactive Protein 1.44 H (0-0.5) mg/dl Total Protein (6.0-8.3) gm/dl Globulin (2.5-4.0) gm/dl Urine Protein (Negative) Urine Blood (Negative) Urine RBC (Auto) (0-2) /hpf 05/28/24 05/29/24 Range/Units Unknown 05:52 WBC (4.8-10.8) K/ul RBC 3.58 L (4.70-6.10) M/uL Hgb 12.6 L (14.0-18.0) g/dl Hct 36.8 L (42.0-52.0) % MCV 102.8 H (80.0-100.0) fL MCH 35.2 H (25.0-34.0) pg RDW Std Deviation 53.7 H (36.4-46.3) fL Plt Count 123 L (130-400) K/uL MPV 9.2 L (9.4-12.4) fL Neut # (Auto) (1.40-6.50) K/uL Lymph # (Auto) 0.73 L (1.20-3.40) K/uL Grady # (Auto) 0.76 H (0.11-0.59) K/uL Potassium 3.0 L D (3.5-5.1) mmol/L BUN (6-23) mg/dl BUN/Creatinine Ratio 20.7 H (10-20) Glucose (70-99(Fasting)) mg/dl Magnesium (1.7-2.4) mg/dl AST 88 H (13-39) U/L Alkaline Phosphatase (34-104) U/L Total Creatine Kinase 2811 H (30-223) U/L Troponin I High Sens 86.6 H* D (0-20) pg/ml C-Reactive Protein (0-0.5) mg/dl Total Protein 5.7 L D (6.0-8.3) gm/dl Globulin 2.1 L (2.5-4.0) gm/dl Urine Protein 2+ H (Negative) Urine Blood 3+ H (Negative) Urine RBC (Auto) 3-5 H (0-2) /hpf Diagnostic Findings Chest X-Ray 05/28/24 14:00 XR chest 1V portable CLINICAL HISTORY: Chest pain, nonspecific COMPARISON STUDY: 03/31/2024 FINDINGS: Stable mild cardiomegaly without pulmonary vascular congestion. Stable operative changes at the upper right hemithorax. Stable opacity at the right lung base consistent with the right pleural effusion and associated stranding consolidation at the right base on the chest CT of 03/30/2024. No new consolidation or pleural effusion. No pneumothorax. No acute osseous findings. IMPRESSION: Stable exam. ACT 112: Negative or not required by law. Electronically signed by: Eric Mercado M.D. 05/28/2024 2:[address] 05/28/24 14:00 CT facial bones wo con CLINICAL HISTORY: 73 years-old Male presenting with left sided swellking. Acute left-sided facial pain and swelling COMPARISON STUDY: Head CT of same day and also 03/30/2024 TECHNIQUE: High-resolution CT scan of the facial bones is performed. Images are reviewed in the axial, sagittal, and coronal planes. IV contrast was not administered for this examination. A dose lowering technique was utilized adhering to the principles of ALARA. CT DOSE: 765.66 mGy.cm FINDINGS: Head CT dictated separately. Atherosclerotic plaque of the carotid bulbs. Prior bilateral lens repair. There is mild left periorbital and left cheek subcutaneous edema. No discrete fluid collection or mass. Mild mucosal thicke hosea of the paranasal sinuses. Mastoid air cells are clear. No acute calvarial or facial bone fracture identified. Patient is edentulous. Multilevel degenerative changes of the cervical spine which appeared advanced. IMPRESSION: 1. No acute facial bone fracture. 2. Left periorbital and left cheek subcutaneous edema. ACT 112: Negative or not required by law. The above report was generated using voice recognition software. It may contain grammatical, syntax or spelling errors. Electronically signed by: Godfrey Grande M.D. 05/28/2024 3:[address] 05/28/24 14:01 CT head/brain wo con CLINICAL HISTORY: swelling Technique: Contiguous axial CT images of the head were acquired from the base of the skull to the vertex without intravenous contrast administration. Images were viewed in brain, subdural and bone windows. Automated dose lowering techniques and/or adjustment according to patient size were utilized for this exam. Comparison: Comparison is made to CT head 03/30/2024 Findings: Areas of decreased attenuation are present in the periventricular and subcortical white matter bilaterally consistent with small vessel ischemic disease. Generalized cerebral atrophy with commensurate enlargement of the ventricles, sulci, and cisterns is also present. There is no acute intracranial hemorrhage or evidence of acute territorial infarction. No shift of the midline structures, mass effect, or extra-axial abnormalities are shown. Atherosclerotic calcifications are present in the intracranial segments of the internal carotid arteries. Imaged portions of the paranasal sinuses and mastoid air cells are clear. The orbits appear normal. There are no acute fractures of the calvaria or scalp swelling. Soft tissue swelling is seen in the left periorbital regions. Impression: 1. No acute intracranial hemorrhage, no evidence of acute territorial infarction or other acute intracranial disease process. 2. Soft tissue swelling is in the left renal renal region. ACT 112: Negative or not required by law. Electronically signed by: Rocky Zeng M.D. 05/28/2024 3:09 PM Venous Doppler Study 05/28/24 16:44 EXAM: US Duplex Left Lower Extremity Veins INDICATION: TECHNIQUE: Real-time duplex ultrasound scan of the left lower extremity veins integrating B-mode two-dimensional vascular structure, Doppler spectral analysis, color flow Doppler imaging and compression. COMPARISON: No relevant prior studies available. FINDINGS: Deep veins: No DVT in the visualized common femoral, femoral or popliteal veins. The veins demonstrate normal color flow, are normally compressible, with normal phasic flow and/or augmentation response. Superficial veins: No abnormality noted. No thrombus in the visualized great saphenous vein. Soft tissues: Subcutaneous edema noted. No fluid collection. IMPRESSION: No deep venous thrombosis of the left lower extremity. ACT 112: Negative or not required by law. Electronically signed by Sara Vazquez 05-28-2024 6:11 PM Abdomen/Pelvis CT 05/28/24 16:50 EXAM: CT Chest Abdomen and Pelvis With Intravenous Contrast INDICATION: Trauma. TECHNIQUE: Axial computed tomography images of the chest, abdomen and pelvis with intravenous contrast. Sagittal and coronal reformatted images were created and reviewed. This CT exam was performed using one or more of the following dose reduction techniques: automated exposure control, adjustment of the mA and/or kV according to patient size, and/or use of iterative reconstruction technique. CONTRAST: 90ml of Optiray 320 was administered intravenously. COMPARISON: No relevant prior studies available. FINDINGS: Limitations: None. CHEST: Lungs and pleural spaces: There is an encapsulated right basilar pleural effusion measuring 6.8 cm in maximal AP diameter at the base. There is soft tissue scarring associated with multiple right posterior rib resection deformities. No pneumothorax. There is subpleural reticulation in both upper lobes. There is irregular small infiltrate in the right middle lobe and atelectasis in the left lower lobe. There is pleural-based irregular opacity in the posterior right upper lobe. Heart: No abnormality noted. Mediastinum: No abnormality noted. Thyroid: No abnormality noted. ABDOMEN: Liver: Normal size and contour. Hypodense typical of steatosis. No mass or ductal dilation. Gallbladder and bile ducts: No abnormality noted. No calcified stones. No ductal dilation. Pancreas: Homogeneous enhancement. No mass, inflammation or ductal dilation. Spleen: No significant abnormality noted. Adrenals: No significant abnormality noted. Kidneys and ureters: Simple bilateral renal cysts noted. No follow-up necessary. No stones or hydronephrosis. Stomach and bowel: Colonic diverticulosis without diverticulitis. No intestinal thickening or obstruction. Moderate formed stool in the rectal vault. No obstruction. No inflammatory change or thickening. PELVIS: Appendix: No findings to suggest acute appendicitis. Bladder: Incompletely distended and not optimally assessed. No gas or stone. Reproductive: No significant abnormality noted. CHEST, ABDOMEN and PELVIS: Intraperitoneal space: No free air. No significant fluid collection. Retroperitoneal space: No abnormality noted. No fluid collection. Bones/joints: Scoliotic thoracic spine with multilevel mild to moderate degenerative changes. There are multiple right proximal rib resections. There is intact posterior L4-L5 fusion hardware. Multilevel moderate to severe lumbar degenerative changes noted with multilevel moderate to severe canal stenosis most notable at L2-L3. Degenerative changes noted along the right lateral acetabular roof. Chronic right proximal rib resections with soft tissue density typical of scarring. There is no measurable or defined mass. Correlate clinically. Soft tissues: No significant abnormality noted. Vasculature: No abnormality noted. No aortic aneurysm. Lymph nodes: No enlarged lymph nodes. IMPRESSION: Loculated right basilar pleural effusion. No traumatic change of the aorta or solid intra-abdominal or pelvic organs. ACT 112: Negative or not required by law. Electronically signed by Sara Vazquez 05-28-2024 6:[address] 05/28/24 16:50 EXAM: CT Chest Abdomen and Pelvis With Intravenous Contrast INDICATION: Trauma. TECHNIQUE: Axial computed tomography images of the chest, abdomen and pelvis with intravenous contrast. Sagittal and coronal reformatted images were created and reviewed. This CT exam was performed using one or more of the following dose reduction techniques: automated exposure control, adjustment of the mA and/or kV according to patient size, and/or use of iterative reconstruction technique. CONTRAST: 90ml of Optiray 320 was administered intravenously. COMPARISON: No relevant prior studies available. FINDINGS: Limitations: None. CHEST: Lungs and pleural spaces: There is an encapsulated right basilar pleural effusion measuring 6.8 cm in maximal AP diameter at the base. There is soft tissue scarring associated with multiple right posterior rib resection deformities. No pneumothorax. There is subpleural reticulation in both upper lobes. There is irregular small infiltrate in the right middle lobe and atelectasis in the left lower lobe. There is pleural-based irregular opacity in the posterior right upper lobe. Heart: No abnormality noted. Mediastinum: No abnormality noted. Thyroid: No abnormality noted. ABDOMEN: Liver: Normal size and contour. Hypodense typical of steatosis. No mass or ductal dilation. Gallbladder and bile ducts: No abnormality noted. No calcified stones. No ductal dilation. Pancreas: Homogeneous enhancement. No mass, inflammation or ductal dilation. Spleen: No significant abnormality noted. Adrenals: No significant abnormality noted. Kidneys and ureters: Simple bilateral renal cysts noted. No follow-up necessary. No stones or hydronephrosis. Stomach and bowel: Colonic diverticulosis without diverticulitis. No intestinal thickening or obstruction. Moderate formed stool in the rectal vault. No obstruction. No inflammatory change or thickening. PELVIS: Appendix: No findings to suggest acute appendicitis. Bladder: Incompletely distended and not optimally assessed. No gas or stone. Reproductive: No significant abnormality noted. CHEST, ABDOMEN and PELVIS: Intraperitoneal space: No free air. No significant fluid collection. Retroperitoneal space: No abnormality noted. No fluid collection. Bones/joints: Scoliotic thoracic spine with multilevel mild to moderate degenerative changes. There are multiple right proximal rib resections. There is intact posterior L4-L5 fusion hardware. Multilevel moderate to severe lumbar degenerative changes noted with multilevel moderate to severe canal stenosis most notable at L2-L3. Degenerative changes noted along the right lateral acetabular roof. Chronic right proximal rib resections with soft tissue density typical of scarring. There is no measurable or defined mass. Correlate clinically. Soft tissues: No significant abnormality noted. Vasculature: No abnormality noted. No aortic aneurysm. Lymph nodes: No enlarged lymph nodes. IMPRESSION: Loculated right basilar pleural effusion. No traumatic change of the aorta or solid intra-abdominal or pelvic organs. ACT 112: Negative or not required by law. Electronically signed by Sara Vazquez 05-28-2024 6:[address] 05/28/24 16:58 EXAM: CT Cervical Spine Without Intravenous Contrast INDICATION: Trauma. TECHNIQUE: Axial computed tomography images of the cervical spine without intravenous contrast. Sagittal and coronal reformatted images were created and reviewed. This CT exam was performed using one or more of the following dose reduction techniques: automated exposure control, adjustment of the mA and/or kV according to patient size, and/or use of iterative reconstruction technique. COMPARISON: No relevant prior studies available. FINDINGS: Limitations: None. Vertebrae: Reversal of the normal cervical curvature noted. There is diffuse moderate to severe hypertrophic change of the facets, spondylosis and uncal spurring. Endplate subchondral cystic change noted at multiple levels. There is grade 1 degenerative anterolisthesis of C3 on C4. No acute fracture noted. Chronic deformity posterior right first and second ribs. Discs/spinal canal/neural foramina: Diffuse moderate to severe disc space degeneration with multilevel mild canal stenosis. There is moderate to severe foraminal stenosis C3-C7. Soft tissues: There is soft tissue thickening in the right lung apex and supraclavicular soft tissues inferior to the deformed right ribs. There is no measurable mass. No fluid collection. Thyroid: Right thyroidectomy. The left appears normal. Lung apices: There is partially imaged scarring in the right lung apex. IMPRESSION: 1. Multilevel moderate to severe degenerative changes. No cervical fracture. 2. Chronic deformity of the right first and second ribs with associated soft tissue thickening likely related to scarring. Correlate clinically. ACT 112: Negative or not required by law. Electronically signed by Sara Vazquez 05-28-2024 6:05 PM Humerus X-Ray 05/28/24 16:59 EXAM: Radiographs of the Left Humerus 2 Views INDICATION: Bruising. TECHNIQUE: Frontal and lateral views of the left humerus. COMPARISON: No relevant prior studies available. FINDINGS: Limitations: None. Bones/joints: No fracture, erosion or dislocation. Soft tissues: No abnormality noted. No radiopaque foreign body noted. Tubes, lines and devices: IV catheter antecubital fossa. No soft tissue gas. IMPRESSION: No significant abnormality of the left humerus. ACT 112: Negative or not required by law. Electronically signed by Sara Vazquez 05-28-2024 6:05 PM PG Care Time/CCT Total # of Minutes Spent Total Time Spent with Patient: Total time spent is greater than 50% in coordination of care (as documented) at patient's floor/unit and/or counseling patient: Coding Level of Care Code 31734 SUB INP/OBS CARE 235MIN Diagnoses Rhabdomyolysis M62.82 Acute encephalopathy G93.40 Periorbital edema of left eye R60.0 Friction burn T30.0 Hypomagnesemia E83.42 Elevated troponin R79.89 Pedal edema R60.0 Cellulitis L03.119 Laterality: unspecified laterality Site of cellulitis: extremity Site of cellulitis of extremity: lower extremity (8) Cellulitis Laterality: unspecified laterality Site of cellulitis: extremity Site of cellulitis of extremity: lower extremity Qualified Code(s): L03.119 - Cellul itis of unspecified part of limb
[2024-05-29] MEDS: ACETAMINOPHEN 325 MG TAB PO PRN (13:44)
--- NOTE | 2024-05-29 13:53 | XRay Report ---
XR elbow LT min 3V routine, XR elbow RT min 3V routine CLINICAL HISTORY: Fall with bilateral elbow pain COMPARISON: None FINDINGS: There are moderate degenerative changes at both elbows with a few tiny chronic calcificati ons within and adjacent to the joints. No acute fracture or dislocation seen. There is chronic irregu larity at the proximal shaft of the left radius, possible old hardware tract. There are joint effusio ns bilaterally. IMPRESSION: Joint effusions at both elbows with no fracture seen bilateral. If pain persists, follow- up x-rays would be recommended to evaluate for occult nondisplaced fracture. ACT 112: Negative or not required by law. Electronically signed by: Eric Mercado M.D. 05/29/2024 1:51 PM
[2024-05-29] MEDS: ENOXAPARIN INJ 40 MG/0.4 ML SYR SQ SCH (20:47)
[2024-05-29] MEDS: MELATONIN 3 MG TAB PO PRN (23:24)
[2024-05-30 07:36] LABS: BUN Creatinine Ratio 17.5 (10-20); Calcium 8.4 mg/dl (8.6-10.3); Creatinine Clr Calc Pharmacy 56.8 ml/min; Potassium 3.9 mmol/L (3.5-5.1)
--- NOTE | 2024-05-30 13:51 | Hospitalist Progress Note ---
Date of Service May 30, 2024 Assessment & Plan (1) Rhabdomyolysis: Plan: Unclear how long he hasn't been moving for Last seen by brother on Friday Presentation similar to April admission Much improved CPK Discontinue IV fluids (2) Acute encephalopathy: Plan: Brother notes patient off his baseline without any explanation for his injuries - similar to presentation in April CT head without intracranial abnormality Will continue gabapentin for now due to peripheral neuropathy however this is a new medication from last admission Resolved Unclear etiology Could be related to periorbital cellulitis/infection (3) Periorbital edema of left eye: Plan: Cover for periorbital cellulitis with IV ceftriaxone and continue to monitor for improvement. Patient says that it is improved already Possible just dependant left sided edema from lying on this side Blood cultures negative so far (4) Friction burn: Plan: Unclear cause but suspect he has been crawling around at home. Wound care consult. CT chest/abdomen/pelvis and cervical spine ordered given friction waller over abdomen without any explanation Does not appear to be fit to return home at this time (5) Hypomagnesemia: Plan: Improved (6) Elevated troponin: Plan: No chest pain or shortness of breath to suggest ACS No ischemic changes on EKG Continue to trend Likely demand ischemia or related to rhabdomyolysis (7) Pedal edema: Plan: Left > right sided although this was also noted in April with ?lymphedema from prior inguinal hernia on this side Likely moving around less at home US venous doppler negative for DVT (8) Cellulitis: Plan VTE Prophylaxis - Lovenox 40mg SQ daily Diet - regular Disposition - admit to med/surg PT OT recommends rehab. manager international will need to work on it. Admission and Anticipated Discharge Date Admission Date: May 28, 2024 Subjective Patient was seen and examined at 10 AM. Denied chest pain or shortness of breath. Swelling around the left eye is improving. Review of Systems Review of Systems: All systems reviewed & are unremarkable except as noted in Subjective Physical Exam Physical Exam: General: Awake, conversant Heart: S1, S2/regular rate and rhythm, no murmur rubs or gallops Lungs: Clear to auscultation bilaterally. Normal effort Abdomen: Soft/nontender/nondistended. No hepatosplenomegaly Extremities: No clubbing/cyanosis. 1+ bilateral pitting edema Behavior: Appropriate, cooperative Results & Data Results & Data Vital Signs (Past 12 Hours) Vital Signs Temp Pulse Resp BP Pulse Ox O2 Del Method O2 Flow Rate 05/30/24 09:42 Nasal Cannula 2 05/30/24 07:41 36.3 C L 61 16 156/81 H 100 Nasal Cannula 2 Laboratory Results Abnormal lab results 05/30/24 Range/Units 06:07 Chloride 111 H (98-107) mmol/L Glucose 102 H (70-99(Fasting)) mg/dl Calcium 8.4 L (8.6-10.3) mg/dl Total Creatine Kinase 1221 H (30-223) U/L PG Care Time/CCT Total # of Minutes Spent Total Time Spent with Patient: Total time spent is greater than 50% in coordination of care (as documented) at patient's floor/unit and/or counseling patient: Coding Level of Care Code 86325 SUB INP/OBS CARE 235MIN Diagnoses Rhabdomyolysis M62.82 Acute encephalopathy G93.40 Periorbital edema of left eye R60.0 Friction burn T30.0 Hypomagnesemia E83.42 Elevated troponin R79.89 Pedal edema R60.0 Cellulitis L03.119 Laterality: unspecified laterality Site of cellulitis: extremity Site of cellulitis of extremity: lower extremity (8) Cellulitis Laterality: unspecified laterality Site of cellulitis: extremity Site of cellulitis of extremity: lower extremity Qualified Code(s): L03.119 - Cellulitis of unspecified part of limb
[2024-05-30] MEDS: oxyCODONE HCL IR 5 MG TAB (IMMEDIATE RELEASE) PO PRN (14:01)
[2024-05-31] MEDS: diphenhydrAMINE 50 MG/ML VIAL IV STA (00:17)
[2024-05-31 08:08] LABS: BUN Creatinine Ratio 16.8 (10-20); Calcium 8.7 mg/dl (8.6-10.3); Creatinine Clr Calc Pharmacy 57.9 ml/min; Potassium 3.7 mmol/L (3.5-5.1)
--- NOTE | 2024-05-31 09:10 | Ultrasound Report ---
ULTRASOUND RIGHT UPPER EXTREMITY VENOUS CLINICAL HISTORY: Clinical concern for DVT. COMPARISON STUDY: None. TECHNIQUE: Real-time, grayscale, and color Doppler sonography of the deep veins of the right upper ex tremity is performed. Compression and augmentation were utilized. FINDINGS: No evidence of DVT seen at the right upper extremity. IMPRESSION: No DVT seen. ACT 112: Negative or not required by law. Electronically signed by: Eric Mercado M.D. 05/31/2024 9:09 AM
[2024-05-31] MEDS: cephALEXin 500 MG CAP PO SCH (10:00)
[2024-05-31] MEDS: DICLOFENAC SOD 1% GEL 100 GM TUBE EXT SCH (10:00)
--- NOTE | 2024-05-31 15:01 | Hospitalist Progress Note ---
Date of Service May 31, 2024 Assessment & Plan (1) Rhabdomyolysis: Plan: Unclear how long he hasn't been moving for Last seen by brother on Friday Presentation similar to April admission Much improved CPK Discontinue IV fluids (2) Acute encephalopathy: Plan: Brother notes patient off his baseline without any explanation for his injuries - similar to presentation in April CT head without intracranial abnormality Will continue gabapentin for now due to peripheral neuropathy however this is a new medication from last admission Resolved Unclear etiology Could be related to periorbital cellulitis/infection (3) Periorbital edema of left eye: Plan: Cover for periorbital cellulitis with IV ceftriaxone initially and continue to monitor for improvement. Patient says that it is improved already Possible just dependant left sided edema from lying on this side Blood cultures negative so far Switched from IV ceftriaxone to p.o. Keflex since the IV infiltrated. Ultrasound right upper extremity was negative for DVT. (4) Friction burn: Plan: Unclear cause but suspect he has been crawling around at home. Wound care consult. CT chest/abdomen/pelvis and cervical spine ordered given friction waller over abdomen without any explanation Does not appear to be fit to return home at this time (5) Hypomagnesemia: Plan: Improved (6) Elevated troponin: Plan: No chest pain or shortness of breath to suggest ACS No ischemic changes on EKG Continue to trend Likely demand ischemia or related to rhabdomyolysis (7) Pedal edema: Plan: Left > right sided although this was also noted in April with ?lymphedema from prior inguinal hernia on this side Likely moving around less at home US venous doppler negative for DVT (8) Cellulitis: Plan VTE Prophylaxis - Lovenox 40mg SQ daily Diet - regular Disposition - admit to med/surg PT OT recommends rehab. manager equipment will need to work on it. Admission and Anticipated Discharge Date Admission Date: May 28, 2024 Subjective Patient was seen and examined at 9:50 AM. I was informed that his right arm IV infiltrated and is removed. Right arm is still painful Review of Systems Review of Systems: All systems reviewed & are unremarkable except as noted in Subjective Physical Exam Physical Exam: General: Awake, conversant Heart: S1, S2/regular rate and rhythm, no murmur rubs or gallops Lungs: Clear to auscultation bilaterally. Normal effort Abdomen: Soft/nontender/nondistended. No hepatosplenomegaly Extremities: No clubbing/cyanosis. 1+ bilateral pitting edema (this is chronic) Behavior: Appropriate, cooperative Results & Data Results & Data Vital Signs (Past 12 Hours) Vital Signs Temp Pulse Resp BP Pulse Ox O2 Del Method 05/31/24 14:52 36.9 C 60 16 139/82 97 Room Air 05/31/24 07:02 36.4 C L 65 16 165/94 H 96 Room Air PG Care Time/CCT Total # of Minutes Spent Total Time Spent with Patient: Total time spent is greater than 50% in coordination of care (as documented) at patient's floor/unit and/or counseling patient: Coding Level of Care Code 45873 SUB INP/OBS CARE 2/35MIN Diagnoses Rhabdomyolysis M62.82 Acute encephalopathy G93.40 Periorbital edema of left eye R60.0 Friction burn T30.0 Hypomagnesemia E83.42 Elevated troponin R79.89 Pedal edema R60.0 Cellulitis L03.119 Laterality: unspecified laterality Site of cellulitis: extremity Site of cellulitis of extremity: lower extremity (8) Cellulitis Laterality: unspecified laterality Site of cellulitis: extremity Site of cellulitis of extremity: lower extremity Qualified Code(s): L03.119 - Cellulitis of unspecified part of limb
[2024-05-31] MEDS: oxyCODONE HCL IR 5 MG TAB (IMMEDIATE RELEASE) PO PRN (19:52)
[2024-06-01 07:37] LABS: BUN Creatinine Ratio 22.9 (10-20); Calcium 8.9 mg/dl (8.6-10.3); Creatinine Clr Calc Pharmacy 60.9 ml/min; Potassium 3.5 mmol/L (3.5-5.1)
--- NOTE | 2024-06-01 14:23 | Hospitalist Progress Note ---
Date of Service June 01, 2024 Assessment & Plan (1) Rhabdomyolysis: Plan: Unclear how long he hasn't been moving for Last seen by brother on Friday Presentation similar to April admission Much improved CPK Discontinued IV fluids (2) Acute encephalopathy: Plan: Brother notes patient off his baseline without any explanation for his injuries - similar to presentation in April CT head without intracranial abnormality Will continue gabapentin for now due to peripheral neuropathy however this is a new medication from last admission Resolved Unclear etiology Could be related to periorbital cellulitis/infection (3) Periorbital edema of left eye: Plan: Cover for periorbital cellulitis with IV ceftriaxone initially and continue to monitor for improvement. Patient says that it is improved already Possible just dependant left sided edema from lying on this side Blood cultures negative so far Switched from IV ceftriaxone to p.o. Keflex since the IV infiltrated. Ultrasound right upper extremity was negative for DVT. (4) Friction burn: Plan: Unclear cause but suspect he has been crawling around at home. Wound care involved. Wound care recommends wound clinic follow-up. Patient has been advised to call for appointment at CT chest/abdomen/pelvis and cervical spine ordered given friction waller over abdomen without any explanation Does not appear to be fit to return home at this time PT/OT recommends rehab. Case management working on it (5) Hypomagnesemia: Plan: Improved (6) Elevated troponin: Plan: No chest pain or shortness of breath to suggest ACS No ischemic changes on EKG Continue to trend Likely demand ischemia or related to rhabdomyolysis (7) Pedal edema: Plan: Left > right sided although this was also noted in April with ?lymphedema from prior inguinal hernia on this side Likely moving around less at home US venous doppler negative for DVT (8) Cellulitis: Plan VTE Prophylaxis - Lovenox 40mg SQ daily Diet - regular PT OT recommends rehab. substation manager will need to work on it. Admission and Anticipated Discharge Date Admission Date: May 28, 2024 Subjective Patient was seen and examined at 10:20 AM. He complains of right arm pain. His IV had infiltrated on the right arm. Advised him to keep his arm elevated and use ice packs. Review of Systems Review of Systems: All systems reviewed & are unremarkable except as noted in Subjective Physical Exam Physical Exam: General: Awake, conversant Heart: S1, S2/regular rate and rhythm, no murmur rubs or gallops Lungs: Clear to auscultation bilaterally. Normal effort Abdomen: Soft/nontender/nondistended. No hepatosplenomegaly Extremities: No clubbing/cyanosis. 1+ bilateral pitting edema (this is chronic) Behavior: Appropriate, cooperative Results & Data Results & Data Vital Signs (Past 12 Hours) Vital Signs Temp Pulse Resp BP Pulse Ox O2 Del Method 06/01/24 14:13 36.7 C 70 18 130/75 93 Room Air 06/01/24 07:00 36.8 C 63 16 125/73 97 Room Air Laboratory Results Abnormal lab results 06/01/24 Range/Units 06:34 BUN/Creatinine Ratio 22.9 H (10-20) PG Care Time/CCT Total # of Minutes Spent Total Time Spent with Patient: Total time spent is greater than 50% in coordination of care (as documented) at patient's floor/unit and/or counseling patient: Coding Level of Care Code 72395 SUB INP/OBS CARE 2/35MIN Diagnoses Rhabdomyolysis M62.82 Acute encephalopathy G93.40 Periorbital edema of left eye R60.0 Friction burn T30.0 Hypomagnesemia E83.42 Elevated troponin R79.89 Pedal edema R60.0 Cellulitis L03.119 Laterality: unspecified laterality Site of cellulitis: extremity Site of cellulitis of extremity: lower extremity (8) Cellulitis Laterality: unspecified laterality Site of cellulitis: extremity Site of cellulitis of extremity: lower extremity Qualified Code(s): L03.119 - Cellulitis of unspecified part of limb
[2024-06-01] MEDS: oxyCODONE HCL IR 5 MG TAB (IMMEDIATE RELEASE) PO PRN (20:56)
[2024-06-02 07:19] LABS: Potassium 3.9 mmol/L (3.5-5.1)
[2024-06-02 07:25] LABS: BUN Creatinine Ratio 22.5 (10-20); Creatinine Clr Calc Pharmacy 48.7 ml/min
--- NOTE | 2024-06-02 14:40 | Hospitalist Progress Note ---
Date of Service June 02, 2024 Assessment & Plan (1) Rhabdomyolysis: Plan: Unclear how long he hasn't been moving for Last seen by brother on Friday Presentation similar to April admission Resolved Discontinued IV fluids (2) Acute encephalopathy: Plan: Brother notes patient off his baseline without any explanation for his injuries - similar to presentation in April CT head without intracranial abnormality Will continue gabapentin for now due to peripheral neuropathy however this is a new medication from last admission Resolved Unclear etiology Could be related to periorbital cellulitis/infection (3) Periorbital edema of left eye: Plan: Cover for periorbital cellulitis with IV ceftriaxone initially and continue to monitor for improvement. Patient says that it is improved already Possible just dependant left sided edema from lying on this side Blood cultures negative so far Switched from IV ceftriaxone to p.o. Keflex since the IV infiltrated. Ultrasound right upper extremity was negative for DVT. (4) Friction burn: Plan: Unclear cause but suspect he has been crawling around at home. Wound care involved. Wound care recommends wound clinic follow-up. Patient has been advised to call for appointment at CT chest/abdomen/pelvis and cervical spine ordered given friction waller over abdomen without any explanation Does not appear to be fit to return home at this time PT/OT recommends rehab. Case management working on it (5) Hypomagnesemia: Plan: Improved (6) Elevated troponin: Plan: No chest pain or shortness of breath to suggest ACS No ischemic changes on EKG Continue to trend Likely demand ischemia or related to rhabdomyolysis (7) Pedal edema: Plan: Left > right sided although this was also noted in April with ?lymphedema from prior inguinal hernia on this side Likely moving around less at home US venous doppler negative for DVT (8) Cellulitis: Plan VTE Prophylaxis - Lovenox 40mg SQ daily Diet - regular PT OT recommends rehab. manager of medical working on it. Admission and Anticipated Discharge Date Admission Date: May 28, 2024 Subjective Patient was seen and examined at 9:50 AM. He says that his right elbow pain is improved. His right arm pain is improved. Review of Systems Review of Systems: All systems reviewed & are unremarkable except as noted in Subjective Physical Exam Physical Exam: General: Awake, conversant Heart: S1, S2/regular rate and rhythm, no murmur rubs or gallops Lungs: Clear to auscultation bilaterally. Normal effort Abdomen: Soft/nontender/nondistended. No hepatosplenomegaly Extremities: No clubbing/cyanosis. 1+ bilateral pitting edema (this is chronic) Behavior: Appropriate, cooperative Results & Data Results & Data Vital Signs (Past 12 Hours) Vital Signs Temp Pulse Resp BP Pulse Ox O2 Del Method 06/02/24 07:53 Room Air 06/02/24 07:18 36.7 C 62 18 111/68 96 Room Air Laboratory Results Abnormal lab results 06/02/24 Range/Units 06:26 BUN 27 H (6-23) mg/dl BUN/Creatinine Ratio 22.5 H (10-20) PG Care Time/CCT Total # of Minutes Spent Total Time Spent with Patient: Total time spent is greater than 50% in coordination of care (as documented) at patient's floor/unit and/or counseling patient: Coding Level of Care Code 71841 SUB INP/OBS CARE 2/35MIN Diagnoses Rhabdomyolysis M62.82 Acute encephalopathy G93.40 Periorbital edema of left eye R60.0 Friction burn T30.0 Hypomagnesemia E83.42 Elevated troponin R79.89 Pedal edema R60.0 Cellulitis L03.119 Laterality: unspecified laterality Site of cellulitis: extremity Site of cellulitis of extremity: lower extremity (8) Cellulitis Laterality: unspecified laterality Site of cellulitis: extremity Site of cellulitis of extremity: lower extremity Qualified Code(s): L03.119 - Cellulitis of unspecified part of limb
[2024-06-03 07:41] LABS: BUN Creatinine Ratio 26.4 (10-20); Calcium 9.1 mg/dl (8.6-10.3); Creatinine Clr Calc Pharmacy 55.2 ml/min; Potassium 3.6 mmol/L (3.5-5.1)
--- NOTE | 2024-06-03 13:44 | Hospitalist Progress Note ---
Date of Service June 03, 2024 Assessment & Plan (1) Rhabdomyolysis: Plan: Unclear how long he hasn't been moving for Last seen by brother on Friday Presentation similar to April admission Resolved Discontinued IV fluids (2) Acute encephalopathy: Plan: Brother notes patient off his baseline without any explanation for his injuries - similar to presentation in April CT head without intracranial abnormality Will continue gabapentin for now due to peripheral neuropathy however this is a new medication from last admission Metabolic encephalopathy: Resolved Unclear etiology Could be related to periorbital cellulitis/infection (3) Periorbital edema of left eye: Plan: Cover for periorbital cellulitis with IV ceftriaxone initially and continue to monitor for improvement. Patient says that it is improved already Possible just dependant left sided edema from lying on this side Blood cultures negative so far Switched from IV ceftriaxone to p.o. Keflex since the IV infiltrated. Ultrasound right upper extremity was negative for DVT. (4) Friction burn: Plan: Unclear cause but suspect he has been crawling around at home. Wound care involved. Wound care recommends wound clinic follow-up. Patient has been advised to call for appointment at CT chest/abdomen/pelvis and cervical spine ordered given friction waller over abdomen without any explanation Does not appear to be fit to return home at this time PT/OT recommends rehab. Case management working on it (5) Hypomagnesemia: Plan: Improved (6) Elevated troponin: Plan: No chest pain or shortness of breath to suggest ACS No ischemic changes on EKG Continue to trend Likely demand ischemia or related to rhabdomyolysis (7) Pedal edema: Plan: Left > right sided although this was also noted in April with ?lymphedema from prior inguinal hernia on this side Likely moving around less at home US venous doppler negative for DVT (8) Cellulitis: Plan Pressure ulcer left and right great toe stage III. Wound care involved VTE Prophylaxis - Lovenox 40mg SQ daily Diet - regular PT OT recommends rehab. wind field service manager working on it. Likely discharge 06/04 to [place] [facility] Admission and Anticipated Discharge Date Admission Date: May 28, 2024 Subjective Patient was seen and examined at 10:25 AM. He is doing well overall. His right elbow pain is improving significantly. Review of Systems Review of Systems: All systems reviewed & are unremarkable except as noted in Subjective Physical Exam Physical Exam: General: Awake, conversant Heart: S1, S2/regular rate and rhythm, no murmur rubs or gallops Lungs: Clear to auscultation bilaterally. Normal effort Abdomen: Soft/nontender/nondistended. No hepatosplenomegaly Extremities: No clubbing/cyanosis. 1+ bilateral pitting edema (this is chronic) Behavior: Appropriate, cooperative Results & Data Results & Data Vital Signs (Past 12 Hours) Vital Signs Temp Pulse Resp BP Pulse Ox O2 Del Method 06/03/24 07:15 Room Air 06/03/24 07:09 36.5 C 62 16 146/80 H 95 Room Air Laboratory Results Abnormal lab results 06/03/24 Range/Units 07:03 BUN 28 H (6-23) mg/dl BUN/Creatinine Ratio 26.4 H (10-20) PG Care Time/CCT Total # of Minutes Spent Total Time Spent with Patient: Total time spent is greater than 50% in coordination of care (as documented) at patient's floor/unit and/or counseling patient: Coding Level of Care Code 99960 SUB INP/OBS CARE 2/35MIN Diagnoses Rhabdomyolysis M62.82 Acute encephalopathy G93.40 Periorbital edema of left eye R60.0 Friction burn T30.0 Hypomagnesemia E83.42 Elevated troponin R79.89 Pedal edema R60.0 Cellulitis L03.119 Laterality: unspecified laterality Site of cellulitis: extremity Site of cellulitis of extremity: lower extremity (8) Cellulitis Laterality: unspecified laterality Site of cellulitis: extremity Site of cellulitis of extremity: lower extremity Qualified Code(s): L03.119 - Cellulitis of unspecified part of limb
[2024-06-04 06:57] LABS: BUN Creatinine Ratio 26.7 (10-20); Creatinine Clr Calc Pharmacy 48.7 ml/min
--- NOTE | 2024-06-04 16:02 | Hospitalist Progress Note ---
Date of Service June 04, 2024 Assessment & Plan (1) Rhabdomyolysis: Plan: Unclear how long he hasn't been moving for Last seen by brother on Friday Presentation similar to April admission Resolved Discontinued IV fluids (2) Acute encephalopathy: Plan: Brother notes patient off his baseline without any explanation for his injuries - similar to presentation in April CT head without intracranial abnormality Will continue gabapentin for now due to peripheral neuropathy however this is a new medication from last admission Metabolic encephalopathy: Resolved Unclear etiology Could be related to periorbital cellulitis/infection (3) Periorbital edema of left eye: Plan: Cover for periorbital cellulitis with IV ceftriaxone initially and continue to monitor for improvement. Patient says that it is improved already Possible just dependant left sided edema from lying on this side Blood cultures negative so far Switched from IV ceftriaxone to p.o. Keflex since the IV infiltrated. Completed 7 days of antibiotics. Ultrasound right upper extremity was negative for DVT. (4) Friction burn: Plan: Unclear cause but suspect he has been crawling around at home. Wound care involved. Wound care recommends wound clinic follow-up. Patient has been advis ed to call for appointment at CT chest/abdomen/pelvis and cervical spine ordered given friction waller over abdomen without any explanation Does not appear to be fit to return home at this time PT/OT recommends rehab. Case management working on it (5) Hypomagnesemia: Plan: Improved (6) Elevated troponin: Plan: No chest pain or shortness of breath to suggest ACS No ischemic changes on EKG Continue to trend Likely demand ischemia or related to rhabdomyolysis (7) Pedal edema: Plan: Left > right sided although this was also noted in April with ?lymphedema from prior inguinal hernia on this side Likely moving around less at home US venous doppler negative for DVT (8) Cellulitis: Plan Pressure ulcer left and right great toe stage III. Wound care involved VTE Prophylaxis - Lovenox 40mg SQ daily Diet - regular PT OT recommends rehab. supply chain systems manager working on it. Authorization has not been received today 06/04. Patient will most likely be here until 06/07 and potentially go home with home PT and OT. Admission and Anticipated Discharge Date Admission Date: May 28, 2024 Subjective Patient was seen and examined at 10:25 AM. Feels well overall. Denies chest pain or shortness of breath. Waiting to go to rehab. Review of Systems Review of Systems: All systems reviewed & are unremarkable except as noted in Subjective Physical Exam Physical Exam: General: Awake, conversant Heart: S1, S2/regular rate and rhythm, no murmur rubs or gallops Lungs: Clear to auscultation bilaterally. Normal effort Abdomen: Soft/nontender/nondistended. No hepatosplenomegaly Extremities: No clubbing/cyanosis. 1+ bilateral pitting edema (this is chronic) Behavior: Appropriate, cooperative Results & Data Results & Data Vital Signs (Past 12 Hours) Vital Signs Temp Pulse Resp BP Pulse Ox O2 Del Method 06/04/24 14:28 36.8 C 59 L 16 126/76 98 Room Air 06/04/24 08:20 Room Air 06/04/24 06:53 36.5 C 61 16 148/82 H 96 Room Air Laboratory Results Abnormal lab results 06/04/24 Range/Units 05:43 BUN 32 H (6-23) mg/dl BUN/Creatinine Ratio 26.7 H (10-20) PG Care Time/CCT Total # of Minutes Spent Total Time Spent with Patient: Total time spent is greater than 50% in coordination of care (as documented) at patient's floor/unit and/or counseling patient: Coding Level of Care Code 08720 SUB INP/OBS CARE 2/35MIN Diagnoses Rhabdomyolysis M62.82 Acute encephalopathy G93.40 Periorbital edema of left eye R60.0 Friction burn T30.0 Hypomagnesemia E83.42 Elevated troponin R79.89 Pedal edema R60.0 Cellulitis L03.119 Laterality: unspecified laterality Site of cellulitis: extremity Site of cellulitis of extremity: lower extremity (8) Cellulitis Laterality: unspecified laterality Site of cellulitis: extremity Site of cellulitis of extremity: lower extremity Qualified Code(s): L03.119 - Cellulitis of unspecified part of limb
--- NOTE | 2024-06-05 17:18 | Hospitalist Progress Note ---
Date of Service June 05, 2024 Assessment & Plan (1) Rhabdomyolysis: Plan: Unclear how long he hasn't been moving for Last seen by brother on Friday Presentation similar to April admission Resolved Discontinued IV fluids (2) Acute encephalopathy: Plan: Brother notes patient off his baseline without any explanation for his injuries - similar to presentation in April CT head without intracranial abnormality Will continue gabapentin for now due to peripheral neuropathy however this is a new medication from last admission Metabolic encephalopathy: Resolved Unclear etiology Could be related to periorbital cellulitis/infection (3) Periorbital edema of left eye: Plan: Cover for periorbital cellulitis with IV ceftriaxone initially and continue to monitor for improvement. Patient says that it is improved already Possible just dependant left sided edema from lying on this side Blood cultures negative so far Switched from IV ceftriaxone to p.o. Keflex since the IV infiltrated. Completed 7 days of antibiotics. Ultrasound right upper extremity was negative for DVT. (4) Friction burn: Plan: Unclear cause but suspect he has been crawling around at home. Wound care involved. Wound care recommends wound clinic follow-up. Patient has been advis ed to call for appointment at [phone] chest/abdomen/pelvis and cervical spine ordered given friction waller over abdomen without any explanation Does not appear to be fit to return home at this time PT/OT recommends rehab. Case management working on it (5) Hypomagnesemia: Plan: Improved (6) Elevated troponin: Plan: No chest pain or shortness of breath to suggest ACS No ischemic changes on EKG Continue to trend Likely demand ischemia or related to rhabdomyolysis (7) Pedal edema: Plan: Left > right sided although this was also noted in April with ?lymphedema from prior inguinal hernia on this side Likely moving around less at home US venous doppler negative for DVT (8) Cellulitis: Plan Pressure ulcer left and right great toe stage III. Wound care involved VTE Prophylaxis - Lovenox 40mg SQ daily Diet - regular PT OT recommends rehab. manager rn case working on it. His insurance declined rehab. He would like to go home tomorrow with home PT/OT. Admission and Anticipated Discharge Date Admission Date: May 28, 2024 Subjective Patient was seen and examined at 10:25 AM. He feels well overall. He still little weak. Review of Systems Review of Systems: All systems reviewed & are unremarkable except as noted in Subjective Physical Exam Physical Exam: General: Awake, conversant Heart: S1, S2/regular rate and rhythm, no murmur rubs or gallops Lungs: Clear to auscultation bilaterally. Normal effort Abdomen: Soft/nontender/nondistended. No hepatosplenomegaly Extremities: No clubbing/cyanosis. 1+ bilateral pitting edema (this is chronic) Behavior: Appropriate, cooperative Results & Data Results & Data Vital Signs (Past 12 Hours) Vital Signs Temp Pulse Resp BP Pulse Ox O2 Del Method O2 Flow Rate 06/05/24 15:29 36.6 C 60 16 108/64 95 Room Air 06/05/24 11:46 36.7 C 56 L 14 97/60 L 96 Room Air 06/05/24 08:07 36.7 C 56 L 16 147/77 H 95 Room Air 06/05/24 07:50 Room Air, Nasal Cannula 2 PG Care Time/CCT Total # of Minutes Spent Total Time Spent with Patient: Total time spent is greater than 50% in coordination of care (as documented) at patient's floor/unit and/or counseling patient: Coding Level of Care Code 69217 SUB INP/OBS CARE 2/35MIN Diagnoses Rhabdomyolysis M62.82 Acute encephalopathy G93.40 Periorbital edema of left eye R60.0 Friction burn T30.0 Hypomagnesemia E83.42 Elevated troponin R79.89 Pedal edema R60.0 Cellulitis L03.119 Laterality: unspecified laterality Site of cellulitis: extremity Site of cellulitis of extremity: lower extremity (8) Cellulitis Laterality: unspecified laterality Site of cellulitis: extremity Site of cellulitis of extremity: lower extremity Qualified Code(s): L03.119 - Cellulitis of unspecified part of limb
[2024-06-05 19:15] VITALS: RESP 14
[2024-06-06 07:42] VITALS: TEMP 97.9; O2SAT 95
[2024-06-06 08:16] VITALS: BP 118/72
--- NOTE | 2024-06-06 09:26 | Discharge Summary ---
Date of Service June 06, 2024 Admission HPI Per Admitting Provider Adalberto Dunbar is a 73 year old male who presents to the ER with left facial swelling. He reports waking up with this in the morning. He has no explanation for the injuries to his left upper arm, abdomen and lower extremity. He was seen with his brother in the room who feels he is off his baseline and confused. No one sided weakness, change in speech hearing or vision. The patient lives by himself and was found by his brother this morning and unable to get up out of his recliner therefore brought him to the ER. No fever, chills, respiratory, gastrointestinal or urinary symptoms. Of note he was admitted in April with generalized weakness and associated falls. He had bilateral left > right sided edema at that time and was eventually discharged to rehabilitation. Admission Exam Per Admitting Provider Constitutional: well developed; + not well nourished and no acute distress Eyes: PERRL, conjunctivae normal, anicteric sclerae ENMT: external ear and nose normal, oropharynx normal Respiratory: normal respiratory effort, lungs clear to auscultation Cardiovascular: Rate/Rhythm: regular rate and regular rhythm Heart Sounds: no murmur Extremities: + pedal edema (bilateral left > right sided) Gastrointestinal (Abdomen): normal bowel sounds, soft, nontender, no hepatosplenomegaly Neurologic: moves all extremities, + focal motor deficit (bilateral foot drop (previously noted)), awake and + confused Speech / Cognition: normal speech Motor/Sensory: no pronator drift Cranial Nerves: PERRL, EOM intact bilaterally (no diplopia), normal facial strength, able to rotate head bilaterally, able to elevate shoulders bilaterally, no nystagmus and symmetric palate elevation Periorbital Left eye erythema and swelling Friction waller noted on bilateral knees and down left lower leg with erythema warmth and swelling of left leg Friction burn noted on upper abdomen bilaterally but greater on left side Ecchymosis of lef cabrera arm Psychiatric: Orientation: alert, oriented to person and oriented to place; + not oriented to time Principal Diagnosis Rhabdomyolysis Acute metabolic encephalopathy Periorbital cellulitis Pressure ulcers of the right and left great toe stage III Likely peripheral vascular disease, positive ABIs Hypomagnesemia Discharge Exam General: Awake, conversant Heart: S1, S2/regular rate and rhythm, no murmur rubs or gallops Lungs: Clear to auscultation bilaterally. Normal effort Abdomen: Soft/nontender/nondistended. No hepatosplenomegaly Extremities: No clubbing/cyanosis. 1+ bilateral pitting edema (this is chronic) Behavior: Appropriate, cooperative Discharge Data Allergies Allergy/AdvReac Type Severity Reaction Status Date / Time NSAIDS (Non-Steroidal AdvReac Unknown REDUCES Verified 05/28/24 16:00 Anti-Inflamma KIDNEY FUNCTION Consultations 05/28/24 15:53 ED Decision to Admit Stat Ordered Studies 05/28/24 14:00 CT facial bones wo con Stat 05/28/24 14:01 CT head/brain wo con Stat 05/28/24 16:44 US venous doppler LE LT Stat 05/28/24 16:50 CT Abd and Pelvis [CT abd pelvis IV con only] Stat CT chest diagnostic w con Stat 05/28/24 16:58 CT cervical spine wo con Stat 05/31/24 US venous doppler UE RT Urgent Hospital Course (1) Rhabdomyolysis: Unclear how long he hadn't been moving for Presentation similar to April admission Resolved Discontinued IV fluids (2) Acute encephalopathy: Brother notes patient off his baseline without any explanation for his injuries - similar to presentation in April CT head without intracranial abnormality Will continue gabapentin for now due to peripheral neuropathy however this is a new medication from last admission Metabolic encephalopathy: Resolved Unclear etiology Could be related to periorbital cellulitis/infection (3) Periorbital edema of left eye: Cover for periorbital cellulitis with IV ceftriaxone initially and continue to monitor for improvement. Patient says that it is improved already Possible just dependant left sided edema from lying on this side Blood cultures negative so far Switched from IV ceftriaxone to p.o. Keflex since the IV infiltrated. Completed 7 days of antibiotics. Ultrasound right upper extremity was negative for DVT. (4) Friction burn: Unclear cause but suspect he has been crawling around at home. Wound care involved. Wound care recommends wound clinic follow-up. Patient has been advised to call for appointment at [phone] Patient was also noted to have abnormal ankle-brachial index. Wound care informed me of it. This will need to be addressed outpatient. Patient may need to see vascular surgery outpatient CT chest/abdomen/pelvis and cervical spine ordered given friction waller over abdomen without any explanation PT/OT recommends rehab. Insurance denied it. Patient wants to go home (5) Hypomagnesemia: Improved (6) Elevated troponin: No chest pain or shortness of breath to suggest ACS No ischemic changes on EKG Continue to trend Likely demand ischemia or related to rhabdomyolysis (7) Pedal edema: Left > right sided although this was also noted in April with ?lymphedema from prior inguinal hernia on this side Likely moving around less at home venous doppler negative for DVT (8) Cellulitis: Plan Pressure ulcer left and right great toe stage III. Wound care involved VTE Prophylaxis - Lovenox 40mg SQ daily Diet - regular PT OT recommends rehab. His insurance declined rehab. He would like to go home Patient will be discharged to home today Total Time Total Time Spent Total Time Spent (In Minutes): 35 Discharge Plan Discharge Items Patient Disposition: Home - Self-Care Reason For Visit: ALTERED MENTAL STATE, LEFT SIDED SWELLING Discharge Diagnosis: Rhabdomyolysis Acute metabolic encephalopathy Periorbital cellulitis Pressure ulcers of the right and left great toe stage III Likely peripheral vascular disease, positive ABIs Hypomagnesemia Activity: Resume your previous activity Non-emergency contact: Primary Care Provider Call non-emergency contact if: you have any medication questions and your symptoms worsen Follow-up/Referrals: Kendra Gipson MD [Primary Care Provider] - Diet: Heart Healthy Addtl Attending Provider Instructions: Advised to follow-up with PCP in 1 week Patient will need outpatient follow-up with vascular surgery. This will need to be arranged by PCP Wound care recommends wound clinic follow-up. Patient has been advised to call for appointment at [phone] Pending Studies at Discharge: No Stand-Alone Forms: [facility] [employer] Medications and DC Order Prescriptions: Continued multivitamin Tablet 1 tab PO QAM gabapentin 300 mg capsule 300 mg PO BID@0900,1400 Qty: 60 2RF aspirin 81 mg tablet,delayed release (DR/EC) 81 mg PO DAILY nitroglycerin [Nitrostat] 0.4 mg tablet, sublingual 0.4 mg SL Q5M PRN (Reason: chest pain) Qty: 25 5RF Rx Instructions: until response; do not exceed 3 doses per episode sertraline 25 mg tablet 25 mg PO QAM Qty: 30 0RF gabapentin 800 mg tablet 800 mg PO HS theophylline 300 mg tablet extended release 12 hr 150 mg PO DAILY metoprolol tartrate 50 mg tablet 50 mg PO DAILY Discharge Orders: Discharge Order (Routine); Ordered 06/06/24 Ordered By: Philip Cisneros Admission Data Admit Date/Time: 05/28/24 18:05 Attending Provider: Philip Cisneros Admit Provider: Zackery Montaño Primary Care Provider: Kendra Gipson Other Providers: Zackery Montaño; [place]; [facility]; [facility], Other Interventions: Discharge Summary Assessment (RN) Last Done: 06/06/24 11:52
[2024-06-06 10:41] VITALS: PULSE 75
== END 2024-06-06 12:42 | disposition home or self-care (01) | DRG 557 ==
LOC: ED 12:41 → SUATTDRO 18:05 → EDINP 18:05 → 3N 20:22